=== PATIENT | male | born 1995 | race Caucasian/White ===

== ENCOUNTER 2020-12-25 23:46 | Emergency (ER) | payer OTHER, SELFPAY ==
--- NOTE | 2020-12-25 23:49 | ECG_ITS ---
Measurements Intervals [place] Rate: 87 P: 10 NH: 158 QRS: 32 QRSD: 117 T: 39 QT: 339 QTc: 409 Interpretive Statements SINUS RHYTHM BASELINE ARTIFACT- I, II, III, AVR, AVL, AVF, V1 NORMAL ECG Electronically Signed On 12-26-2020 6:46:03 CDT by Juan Valadez D.O.
[2020-12-25 23:53] VITALS: BP 148/90; PULSE 91; RESP 21; TEMP 37.1; O2SAT 97
[2020-12-26 00:25] LABS: Basophils Absolute Auto 0.1 K/mm3 (0.0-0.1); Basophils Percent Auto 0.7 % (0.2-1.2); Eosinophils Absolute Auto 0.3 K/mm3 (0-0.3); Eosinophils Percent Auto 3.3 % (0-4.4); Hematocrit 47.3 % (42.0-52.0); Hemoglobin 16.9 g/dL (14.0-18.0); Immature Granulocyte Absolute 0.05 K/mm3 (0.00-0.031); Immature Granulocyte Percent A 0.5 % (0-0.5); Lymphocytes Absolute Auto 1.38 K/mm3 (0.9-3.2); Lymphocytes Percent Auto 13.2 % (18.3-44.2); Mean Corpuscular HGB Conc 35.7 g/dl (32-36); Mean Corpuscular Hemoglobin 34.3 pg (26-34); Mean Corpuscular Volume 96.1 fl (80-100); Mean Platelet Volume 9.6 fl (7.4-10.4); Monocytes Absolute Auto 0.8 K/mm3 (0.1-0.6); Neutrophils Absolute Auto 7.8 K/mm3 (1.3-6.7); Neutrophils Percent Auto 74.3 % (45.5-73.1); Platelet Count Result 217 k/mm3 (150-375); Red Blood Count 4.92 M/mm3 (4.6-6.20); Red Cell Distribution Width 12.8 % (11.5-14.5); White Blood Count 10.4 K/mm3 (4.5-10.0)
[2020-12-26 00:39] LABS: Alanine Aminotransferase 77 U/L (4-50); Albumin Level 4.7 g/dL (3.5-5.1); Alkaline Phosphatase 76 U/L (38-126); Anion Gap 6 mmol/L (8-16); Aspartate Amino Transferase 69 U/L (17-59); Bilirubin,Total 0.5 mg/dL (0.2-1.3); Blood Urea Nitrogen 13 mg/dL (9-20); Calcium 9.7 mg/dL (8.4-10.2); Carbon Dioxide 29 mmol/L (22-30); Chloride 106 mmol/L (98-107); Estimated CRCL calculation 160 ml/min; Estimated Glomerular Filt Rate > 60; Glucose 109 mg/dL (65-110); Potassium 3.8 mmol/L (3.4-5.0); Sodium 141 mmol/L (137-145)
--- NOTE | 2020-12-26 01:06 | ED.GENADULT ---
HPI - General Adult General Chief complaint: Neuro Symptoms/Deficit Stated complaint: numbness in head x2 weeks, forearm Time Seen by Provider: 12/26/20 01:05 Source: patient Mode of arrival: ambulatory Limitations: no limitations History of Present Illness HPI narrative: Patient is a 25-year-old male complaining of left facial numbness and tingling x2 weeks and left upper extremity numbness x1 week and now states that both of his upper extremities are tingling. Patient states that the above symptoms only happens before he goes to work. Patient has a history of anxiety and claims that he has been a lot of stress the past 2 weeks at work. Patient states that he takes lorazepam for anxiety and the past 2 weeks has been taking it right before going to work. Patient denies any headache or dizziness, speech or visual disturbance, focal weakness, unsteady gait, chest pain, shortness of breath, nausea, vomiting, fever or chills. Patient states that he has an appointment to see a new doctor next week for his anxiety. Related Data Allergies Allergy/AdvReac Type Severity Reaction Status Date / Time No Known Allergies Allergy Verified 08/14/20 14:16 Review of Systems Review of Systems: All systems reviewed & are unremarkable except as noted in HPI and below Constitutional: Constitutional: Denies body ache(s), Denies chills, Denies excessive sweating, Denies fatigue, Denies fever(s), Denies headache(s), Denies lethargy, Denies malaise, Denies weakness and Denies weight loss Eyes: Eyes: Denies blurry vision, Denies change in vision and Denies loss of vision ENT: Denies dizziness, Denies ear discharge, Denies headache(s), Denies lip swelling, Denies epistaxis, Denies nasal congestion, Denies neck pain, Denies throat swelling and Denies tongue swelling Cardiovascular: Cardiovascular: Denies chest pain, Denies chest pain at rest, Denies chest pain with activity, Denies diaphoresis, Denies rapid heart rate, Denies edema, Denies irregular heart rhythm, Denies lightheadedness, Denies palpitations, Denies dyspnea and Denies dyspnea on exertion Respiratory: Respiratory: Denies chest congestion, Denies cough, Denies hemoptysis, Denies dyspnea and Denies dyspnea on exertion Gastrointestinal: Gastrointestinal: Denies abdominal pain, Denies melena, Denies hematochezia, Denies diarrhea, Denies nausea, Denies vomiting and Denies hematemesis Musculoskeletal: Musculoskeletal: Denies abnormal gait, Denies deformity, Denies joint swelling, Denies limited range of motion and Denies neck pain Neurologic: Denies Abnormal speech present, Denies abnormal gait, Denies confusion, Denies dizziness, Denies headache(s), Denies focal weakness, Denies loss of vision, Denies Other visual disturbances and Denies weakness Psychiatric: Psychiatric: Reports anxiety, Denies confusion, Denies depression, Denies auditory hallucinations, Denies homicidal ideation and Denies suicidal ideation Endocrine: Endocrine: Denies cold intolerance, Denies excessive sweating, Denies fatigue, Denies heat intolerance and Denies palpitations Hematologic/Lymphatic: Hematologic/Lymphatic: Denies easy bleeding and Denies easy bruising Allergic/Immunologic: Allergic/Immunologic: Denies lip swelling, Denies throat swelling and Denies tongue swelling PMFSH Social History Social History Smoking status: Current every day smoker Tobacco type: cigarettes Alcohol intake: current Drinks per week: 3 Alcohol use details: patient drinks [employer] Substance use: never Substance use type: does not use Additional occupation/education comments: [employer] Gender identity (if verbalized by the patient): Male Comments Past medical history: Anxiety Family history: Negative for CVA, negative for aneurysm Exam Const: General: cooperative, healthy appearing, comfortable, no acute distress, well developed, alert and awake; No confusio
[2020-12-26 02:16] VITALS: BP 136/85; PULSE 88; RESP 18; O2SAT 96
== END 2020-12-26 03:10 | disposition home or self-care (01) ==
PROVIDERS: Emergency Provider Emergency Medicine
DX: F41.9 Anxiety disorder, unspecified (principal); R20.2 Paresthesia of skin; F17.210 Nicotine dependence, cigarettes, uncomplicated
CPT/HCPCS: 36415; 80053; 85025; 93005; 99283

== ENCOUNTER 2025-01-09 17:35 | Inpatient (IN) | payer OTHER, SELFPAY ==
--- OUTSIDE RECORDS SUMMARY | 2003-08-03 05:45 | XMS_ITS | Continuity of Care Document ---
Author Organization [facility] Address [address] [place] [address] Phone Care Team Providers Care Taper And Floater Name Role Phone Nayely Hael Unavailable Unavailable Advance Directives Directive Yes / No Effective Date File Name No Information Encounters Encounter Description Practice Location Reason(s) For Visit Diagnoses Date Provider Providers Copied on Encounter [facility], [id number] [place] [address] [address], [place], [place], [id number], [place] tel:[phone] SEC [facility] No Information 9-200 4 Alexia Adler. [address] [facility] , [address], [place], [address], [place]. tel:[phone] Family History Family Member Type Diagnosis Age At Onset No Information Payers Payer name Insurance type Covered libertarian ID Authoriza tion(s) Medicaid [facility] [id number] Social History Type Description Quantity Date Captured Comments Sex Male Smoking Status No Information Chief Complaint And Reason For Visit No Information Reason For Referral Reason For Referral No Information History Of Present Illness Encounter Date Complaint History Of Prese nt Illness No Information Functional Status Date Functional Assessmen t No Information Instructions Date Instruction Additional Infor mation No Information Assessments Type Assessment Date No Information Patient Care Teams Name Effective Dates (start - stop) Status Members No Information
[2025-01-09] VITALS (12 sets, daily range): BP systolic 128–150; BP diastolic 84–118; PULSE 111–124; RESP 18–27; TEMP 36.3–37.1; O2SAT 88–97
--- NOTE | ~2025-01-09 | XR_ITS ---
EXAMINATION: XR abdomen gastric tube insert, 01/12/2025 15:33 CDT HISTORY: NG placement COMPARISON: No comparisons available. Technique: 3 view. Findings: There are dilated loops of small bowel the largest measuring 4 cm. No free air. No abnormal calcifications No acute osseous abnormality. Nasogastric tube terminates in the mid stomach. Impression: 1. Nasogastric tube in appropriate location Reviewed, dictated and finalized at location P. Impression: 1. Nasogastric tube in appropriate location
--- NOTE | ~2025-01-09 | CT_ITS ---
EXAMINATION: CTA chest PE protocol DATE: 01/10/2025 02:14 INDICATION: Abdominal pain. Bowel obstruction. TECHNIQUE: Computed tomography angiography (CTA) of the chest was performed with 100 mL Omnipaque-350 intravenous contrast timed to evaluate the pulmonary arteries. Coronal maximum intensity projection 3D-reconstructions were created by the technologist. Automated exposure control and iterative reconstruction technique were employed. The dose-length product was 1142.85 mGy-cm. COMPARISON: None. FINDINGS: The lungs demonstrate mild atelectasis. There is a 3 mm nodule in right upper lobe, likely benign. There is a 3 mm nodule in right middle lobe, likely benign. There is a 4 mm nodule at right major fissure, likely benign. No pleural effusion. The heart size is normal. No pericardial effusion. There is no pulmonary embolus. There are gallstones in the gallbladder, which is normal in size. The colon is distended. There is mild thoracic spondylosis. There is mild chronic anterior wedging of multiple lower thoracic vertebral bodies. IMPRESSION: 1. No pulmonary embolus. Sensitivity is mildly decreased by motion artifact. 2. Distended colon, consistent with distal obstruction. Reviewed, dictated and finalized at location E.
--- NOTE | ~2025-01-09 | CT_ITS ---
EXAMINATION: CT abdomen pelvis w con DATE: 01/12/2025 13:15 INDICATION: Bowel perforation. Abdominal pain. TECHNIQUE: Computed tomography (CT) of the abdomen and pelvis was performed with 100 mL Omnipaque-350 intravenous contrast. Automated exposure control and iterative reconstruction technique were employed. The dose-length product was 1596.38 mGy-cm. COMPARISON: None FINDINGS: Discoid and dependent atelectasis in bilateral lower lobes. Additional discoid atelectasis in the lingula. Heart size is normal. No pericardial or pleural effusion. Small sliding-type hiatal hernia. Diffuse hepatic steatosis. Gallbladder is decompressed around several gallstones. Spleen, pancreas, bila teral adrenal glands and kidneys are normal. There is a segment of prominent wall thickening and surrounding inflammatory stranding along the mid descending colon which could be due to diverticulitis, focal colitis or malignancy. Again seen are couple very small loculated gas and fluid collections within a region of phlegmonous change along side the affected colon which is consistent with secondary bowel perforation and abscess formation. There appears to be a sinus tract extending to communicate with a larger 5 x 2 x 2 cm gas and fluid containing abscess along the anterolateral margin of the left psoas muscle. The more distal colon is relatively decompressed with fluid filling the more proximal colon as well as multiple mildly dilated loops of mid to distal small bowel which suggests some degree of stricture/obstruction occurring at the affected descending colon. Bladder is normal. Aside from the immediate vicinity of the affected descending colon there is no other free intraperitoneal gas or f luid. No pathologically enlarged abdominal or pelvic lymphadenopathy. Mild to moderate lower thoracic and mild lumbar spondylosis. IMPRESSION: 1. Stable appearance of phlegmonous change in a few small abscesses including a 5 x 2 x 2 cm left psoas abscess such with a thickened segment of descending colon which is concerning for bowel perforation the setting of diverticulitis, focal colitis or potentially malignancy. 2. Fluid filling the more proximal colon as well as multiple dilated loops of mid to distal small bowel suggesting some degree of obstruction related stricture at the site of the affected descending colon. Consider nasogastric tube decompression. 3. Diffuse hepatic steatosis. Reviewed, dictated and finalized at location A. IMPRESSION: 1. Stable appearance of phlegmonous change in a few small abscesses including a 5 x 2 x 2 cm left psoas abscess such with a thickened segment of descending co nelly which is concerning for bowel perforation the setting of diverticulitis, fo luis colitis or potentially malignancy. 2. Fluid filling the more proximal colon as well as multiple dilated loops of m id to distal small bowel suggesting some degree of obstruction related strictur e at the site of the affected descending colon. Consider nasogastric tube decom pression. 3. Diffuse hepatic steatosis.
--- NOTE | ~2025-01-09 | CT_ITS ---
EXAMINATION: CT guide absc cath placement DATE: 01/13/2025 15:06 INDICATION: Left psoas abscess TECHNIQUE: The procedure including the risks and benefits was discussed with the patient. Risks discussed included bleeding and infection. The patient understood the risks and benefits and agreed to proceed. The patient was confirmed to be receiving appropriate antibiotic coverage. The skin overlying the lateral left lower quadrant abdominal wall was prepped and draped in usual sterile fashion. Anesthetic was administered with 1% lidocaine subcutaneously. Utilizing CT guidance an 18-gauge trochar needle was inserted left psoas muscle abscess. The inner stylette was removed and a J-wire advanced into the fluid collection with position confirmed by CT. Needle was removed and utilizing Seldinger technique the tract was serially dilated over the wire to 9 Fr. A 2.5 Fr pigtail catheter was then placed and the loop formed and locked with position confirmed by CT. The catheter was stitched to the skin with suture. Antibiotic ointment and a sterile dressing were applied. 15 mL purulent appearing fluid was aspirated and sent to the lab for Gram stain and cultures. The dose-length product was 1078.21 mGy-cm. FINDINGS: CT images demonstrate the catheter within the left psoas muscle gas and fluid collection. 15 mL purulent appearing opaque pinkish-guan fluid was aspirated for testing. IMPRESSION: 1. Successful CT-guided left psoas muscle abscess drainage catheter placement. 2. 15 mL fluid was sent for aerobic and anaerobic cultures. 3. The catheter will be managed by Dr. Mayfield. Reviewed, dictated and finalized at location A.
--- NOTE | ~2025-01-09 | CT_ITS ---
EXAMINATION: CT abdomen pelvis w con DATE: 01/10/2025 00:02 INDICATION: Abdominal pain. TECHNIQUE: Computed tomography (CT) of the abdomen and pelvis was performed with 100 mL Omnipaque 350 intravenous contrast. Automated exposure control and iterative reconstruction technique were employed. The dose-length product was 1860.78 mGy-cm. COMPARISON: None. FINDINGS: The visualized portions of the lung bases are clear without pneumonia or pleural effusion. The heart size is normal. No pericardial effusion. There is diffuse hepatic steatosis. There are gallstones in the gallbladder, which is normal in size. The spleen, pancreas, adrenal glands, and kidneys are normal. There is a mass of the descending colon with surrounding fat stranding and foci of extraluminal gas including a 5.1 x 2.0 x 2.1 cm abscess involving the adjacent left psoas muscle. The colon is distended proximal to the mass. The small bowel is distended. The appendix is fluid-filled with diameter of 12 mm. No surrounding fat stranding to suggest appendicitis. There is mild mesenteric lymphadenopathy with the largest node measuring 12 x 16 mm. There is prominent fat in the inguinal canals that may be hernias. There is no significant ascites. There are screws in the femoral heads bilaterally. There is moderate thoracic spondylosis and mild lumbar spondylosis. There is mild chronic anterior wedging of multiple thoracic vertebral bodies. IMPRESSION: 1. Mass of the descending colon, which may be malignancy or diverticulitis with microperforation and abscess involving the adjacent left psoas muscle. 2. Bowel obstruction from the descending colon mass. 3. Mild mesenteric lymphadenopathy which may be reactive or metastatic disease. Reviewed, dictated and finalized at location E.
--- NOTE | 2025-01-09 18:27 | ED.ABDPAIN ---
HPI - Abdominal Pain General Chief Complaint: Abdominal Pain <Robinson Macias APRN - Last Filed: 01/09/25 18:28> Stated Complaint: abd pain worsening over months <Robinson Macias APRN - Last Filed: 01/09/25 18:28> Time Seen by Provider: 01/09/25 23:21 <Robinson Macias APRN - Last Filed: 01/09/25 18:28> Focused HPI: 29-year-old male history of GERD, anxiety, depression, heavy EtOH abuse presents ER complaining of upper abdominal pain has been present intermittently for 3 months. Denies nausea, vomiting or diarrhea. Denies fevers. States last drink was yesterday. GENERAL: Well-appearing, well-nourished, and in no acute distress. HEAD: Normocephalic, atraumatic. CHEST: Clear to auscultation. No respiratory distress. HEART: Regular rate and rhythm. NEURO: Alert and oriented x3. Patient screened in triage and initial orders placed. Additional care and disposition to be based upon diagnostic testing and treatment. <Robinson Macias APRN - Last Filed: 01/09/25 18:28> History of Present Illness HPI narrative: Patient is a 29-year-old gentleman presents emergency department chief complaint of abdominal pain patient reports that for the last several months he has been having abdominal pain diagnosed with GERD and started on omeprazole patient states he does drink approximately 1/5 of alcohol per day and reports that he has had some nausea and reports that he has had some diarrhea as well the patient states that today decided to come the emergency department has not had a CT scan that was supposed to be done as an outpatient <Pierre Samson MD - Last Filed: 01/10/25 01:13> Related Data Allergies/Adverse Reactions: Allergies Allergy/AdvReac Type Severity Reaction Status Date / Time No Known Allergies Allergy Verified 12/16/24 07:09 <Robinson Macias APRN - Last Filed: 01/09/25 18:28> Review of Systems Review of Systems: A 10 system review of systems was completed on the patient and is negative except for what is stated in the HPI. Nursing and ancillary documentation was reviewed. <Pierre Samson MD - Last Filed: 01/10/25 01:13> PMFSH Past Medical History Medical History: Medical History Morbid obesity Elevated liver enzymes Anxiety with depression <Robinson Macias APRN - Last Filed: 01/09/25 18:28> Surgical History Surgical History: Surgical History History of hip surgery <Robinson Macias APRN - Last Filed: 01/09/25 18:28> Family History Family History: Family History Father No problems noted. Mother No problems noted. Sibling No problems noted. <Robinson Macias APRN - Last Filed: 01/09/25 18:28> Social History Social History: Social History Smoking status: Current every day smoker Tobacco type: cigarettes Second hand tobacco smoke exposure: Yes Alcohol intake: current Drinks per week: 3 Alcohol use details: patient drinks whiskey Substance use: never Substance use type: does not use Do You Feel Safe in your Home?: Yes Lack of Transportation: No Lack of Food: Never True Current Housing: I Have Housing Concerned About Future Housing: No Difficulty Paying Gas/Electric Bills: No Difficulty Paying for Meds: No Currently Unemployed: No Education: High School Diploma/GED Difficulty w/ Childcare or Family Care: No Living arrangements: with family Occupation/Education: occupation Additional occupation/education comments: [employer] Gender identity (if verbalized by the patient): Male <Robinson Macias APRN - Last Filed: 01/09/25 18:28> Exam Narrative: GENERAL: Well-appearing, well-nourished, and in no acute distress. HEAD: Normocephalic, atraumatic. EYES: PERRLA and EOMI. ENT: Nares clear, no rhinorrhea or epistaxis. Mucous membranes moist. NECK: Supple. CHEST: Clear to auscultation. No respiratory distress. HEART: Regular rate and rhythm. No murmur heard. Normal peripheral pulses. ABDOMEN: Soft, diffusely tender to palpation, nondistended, normal active bowel sounds. EXTREMITIES: Normal range of motion. No edema. SKIN: Warm, dry, no rash. NEURO: No focal deficits. Alert and oriented x3. PSYCH: Normal mood and affect. <Pierre Samson MD - Last Filed: 01/10/25 01:13> Course Vital Signs Vital signs: Vital Signs Temperature 36.3 C L 01/09/25 18:22 Pulse Rate 124 H 01/09/25 18:22 Respiratory Rate 18 01/09/25 18:22 Blood Pressure 143/118 H 01/09/25 18:22 Pulse Oximetry 97 01/09/25 18:22 Oxygen Delivery Room Air 01/09/25 18:22 Temperature 37.1 C 01/09/25 23:14 Pulse Rate 116 H 01/09/25 23:14 Respiratory Rate 18 01/09/25 23:14 Blood Pressure 150/96 H 01/09/25 23:14 Pulse Oximetry 95 01/09/25 23:14 Oxygen Delivery Room Air 01/09/25 18:22 <Robinson Macias, REGIONAL SALES REPRESENTATIVE - Last Filed: 01/09/25 18:28> Vital Signs Temperature 36.3 C L 01/09/25 18:22 Pulse Rate 124 H 01/09/25 18:22 Respiratory Rate 18 01/09/25 18:22 Blood Pressure 143/118 H 01/09/25 18:22 Pulse Oximetry 97 01/09/25 18:22 Oxygen Delivery Room Air 01/09/25 18:22 Temperature 37.1 C 01/09/25 23:14 Pulse Rate 116 H 01/09/25 23:14 Respiratory Rate 18 01/09/25 23:14 Blood Pressure 150/96 H 01/09/25 23:14 Pulse Oximetry 95 01/09/25 23:14 Oxygen Delivery Room Air 01/09/25 18:22 <Pierre Samson MD - Last Filed: 01/10/25 01:13> MDM - Abdominal Pain MDM Narrative Medical decision making narrative: Differential diagnosis includes small-bowel obstruction, large-bowel obstruction, intra-abdominal mass, abscess, Laboratory studies were obtained showed a white count of 14 0 electrolytes showed a potassium of 2.8 liver enzymes within normal limits lipase was 22 CT scan of the abdomen pelvis showed large bowel obstruction due to a left colonic probable neoplastic mass left colonic perforation with retroperitoneal abscess 5.5 cm adjacent to the psoas muscle Patient was started on Zosyn The case was discussed with surgery on-call who recommended admission to the hospitalist service and they will consult on the patient <Pierre Samson MD - Last Filed: 01/10/25 01:13> Lab Data Result diagrams: 01/09/25 23:12 01/09/25 23:12 <Robinson Macias APRN - Last Filed: 01/09/25 18:28> Labs: Lab Results 01/09/25 01/10/25 Range/Units 23:12 00:59 WBC 14.0 H (4.5-10.0) K/mm3 RBC 4.71 (4.6-6.20) M/mm3 Hgb 13.6 L D (14.0-18.0) g/dL Hct 40.4 L (42.0-52.0) % MCV 85.8 (80-100) fl MCH 28.9 (26-34) pg MCHC 33.7 (32-36) g/dl RDW 14.7 H (11.5-14.5) % Plt Count 449 H D (150-375) k/mm3 MPV 7.9 (7.4-10.4) fl Immature Gran % (Auto) 0.8 H (0-0.5) % Neut % (Auto) 73.8 H (45.5-73.1) % Lymph % (Auto) 13.3 L (18.3-44.2) % [place] % (Auto) 11.0 H (2.6-8.5) % Eos % (Auto) 0.7 (0-4.4) % Baso % (Auto) 0.4 (0.2-1.2) % Lymph # (Auto) 1.87 (0.9-3.2) K/mm3 [place] # (Auto) 1.5 H (0.1-0.6) K/mm3 Eos # (Auto) 0.1 (0-0.3) K/mm3 Baso # (Auto) 0.1 (0.0-0.1) K/mm3 Abs Immat Gran (auto) 0.11 H (0.00-0.031) K/mm3 Absolute Neuts (auto) 10.3 H (1.3-6.7) K/mm3 Absolute Nucleated RBC 0.000 (0.0-0.012) K/mm3 Nucleated RBC % 0.0 (0.0-0.2) % PT 14.5 (11.1-14.7) Seconds INR 1.1 APTT 31.0 (22.3-36.8) Seconds Sodium 133 L (137-145) mmol/L Potassium 2.8 L* (3.4-5.0) mmol/L Chloride 90 L (98-107) mmol/L Carbon Dioxide 33 H (22-30) mmol/L Anion Gap 10 (4-12) mmol/L BUN 5 L D (9-20) mg/dL Creatinine 0.55 L (0.7-1.3) mg/dL Estim Creat Clear Calc 216 ml/min Estimated GFR > 60 (59 - ) Glucose 117 H (65-110) mg/dL Lactic Acid 1.5 (0.7-2.0) mmol/L Calcium 8.6 (8.4-10.2) mg/dL Total Bilirubin 1.1 (0.2-1.3) mg/dL AST 25 (17-59) U/L ALT 17 (6-50) U/L Alkaline Phosphatase 114 (38-126) U/L Total Protein 7.0 (6.3-8.2) g/dL Albumin 3.4 L (3.5-5.1) g/dL Cholesterol 121 (0-200) mg/dL Lipase 22 L (23-300) U/L Urine Color Pending Urine Appearance Pending Urine pH Pending Ur Specific [place] Pending Urine Protein Pending Urine Glucose (UA) Pending Urine Ketones Pending Ur Blood (Man) Pending Urine Nitrate Pending Urine Bilirubin Pending Urine Urobilinogen Pending Leukocyte Esterase Rfl Pending <Robinson Macias, REGIONAL SALES REPRESENTATIVE - Last Filed: 01/09/25 18:28> Lab Results 01/09/25 01/10/25 Range/Units 23:12 00:59 WBC 14.0 H (4.5-10.0) K/mm3 RBC 4.71 (4.6-6.20) M/mm3 Hgb 13.6 L D (14.0-18.0) g/dL Hct 40.4 L (42.0-52.0) % MCV 85.8 (80-100) fl MCH 28.9 (26-34) pg MCHC 33.7 (32-36) g/dl RDW 14.7 H (11.5-14.5) % Plt Count 449 H D (150-375) k/mm3 MPV 7.9 (7.4-10.4) fl Immature Gran % (Auto) 0.8 H (0-0.5) % Neut % (Auto) 73.8 H (45.5-73.1) % Lymph % (Auto) 13.3 L (18.3-44.2) % [place] % (Auto) 11.0 H (2.6-8.5) % Eos % (Auto) 0.7 (0-4.4) % Baso % (Auto) 0.4 (0.2-1.2) % Lymph # (Auto) 1.87 (0.9-3.2) K/mm3 [place] # (Auto) 1.5 H (0.1-0.6) K/mm3 Eos # (Auto) 0.1 (0-0.3) K/mm3 Baso # (Auto) 0.1 (0.0-0.1) K/mm3 Abs Immat Gran (auto) 0.11 H (0.00-0.031) K/mm3 Absolute Neuts (auto) 10.3 H (1.3-6.7) K/mm3 Absolute Nucleated RBC 0.000 (0.0-0.012) K/mm3 Nucleated RBC % 0.0 (0.0-0.2) % PT 14.5 (11.1-14.7) Seconds INR 1.1 APTT 31.0 (22.3-36.8) Seconds Sodium 133 L (137-145) mmol/L Potassium 2.8 L* (3.4-5.0) mmol/L Chloride 90 L (98-107) mmol/L Carbon Dioxide 33 H (22-30) mmol/L Anion Gap 10 (4-12) mmol/L BUN 5 L D (9-20) mg/dL Creatinine 0.55 L (0.7-1.3) mg/dL Estim Creat Clear Calc 216 ml/min Estimated GFR > 60 (59 - ) Glucose 117 H (65-110) mg/dL Lactic Acid 1.5 (0.7-2.0) mmol/L Calcium 8.6 (8.4-10.2) mg/dL Total Bilirubin 1.1 (0.2-1.3) mg/dL AST 25 (17-59) U/L ALT 17 (6-50) U/L Alkaline Phosphatase 114 (38-126) U/L Total Protein 7.0 (6.3-8.2) g/dL Albumin 3.4 L (3.5-5.1) g/dL Cholesterol 121 (0-200) mg/dL Lipase 22 L (23-300) U/L Urine Color Pending Urine Appearance Pending Urine pH Pending Ur Specific [place] Pending Urine Protein Pending Urine Glucose (UA) Pending Urine Ketones Pending Ur Blood (Man) Pending Urine Nitrate Pending Urine Bilirubin Pending Urine Urobilinogen Pending Leukocyte Esterase Rfl Pending <Pierre Samson MD - Last Filed: 01/10/25 01:13> Discharge Plan Discharge Clinical Impression: Bowel obstruction, Abdominal abscess, Abdominal pain, Acute hypokalemia <Robinson Macias APRN - Last Filed: 01/09/25 18:28> Patient Disposition: Still a Patient <Robinson Macias APRN - Last Filed: 01/09/25 18:28> Condition: Stable <Robinson Macias APRN - Last Filed: 01/09/25 18:28> Instructions: Antibiotic Form <Robinson Macias APRN - Last Filed: 01/09/25 18:28> Patient Language: Filipino <Robinson Macias APRN - Last Filed: 01/09/25 18:28> Prescriptions: No Action omeprazole 40 mg capsule,delayed release(DR/EC) 40 mg PO DAILY Qty: 90 0RF bupropion HCl 300 mg tablet extended release 24 hr 300 mg PO QAM Qty: 30 0RF quetiapine 50 mg tablet 50 mg PO QHS Qty: 30 0RF propranolol 60 mg capsule,extended release 24 hr 60 mg PO DAILY Qty: 30 0RF lorazepam 1 mg tablet 1 mg PO DAILY PRN (Reason: anxiety) Qty: 30 0RF <Robinson Macias APRN - Last Filed: 01/09/25 18:28> Follow-up/Referrals: Katherine Anders APRN [Primary Care Provider, [facility]] <Robinson Macias APRN - Last Filed: 01/09/25 18:28> Time of Disposition: 01:04 <Robinson Macias APRN - Last Filed: 01/09/25 18:28> 01:04 <Pierre Samson MD - Last Filed: 01/10/25 01:13>
[2025-01-09 23:18] LABS: Hematocrit 40.4 % (42.0-52.0); Hemoglobin 13.6 g/dL (14.0-18.0); Immature Granulocyte Percent A 0.8 % (0-0.5); Lymphocytes Absolute Auto 1.87 K/mm3 (0.9-3.2); Mean Corpuscular HGB Conc 33.7 g/dl (32-36); Mean Corpuscular Hemoglobin 28.9 pg (26-34); Mean Corpuscular Volume 85.8 fl (80-100); Nucleated Red Blood Cells Absolute Auto 0.000 K/mm3 (0.0-0.012); Nucleated Red Blood Cells Perc 0.0 % (0.0-0.2); Platelet Count Result 449 k/mm3 (150-375); Red Blood Count 4.71 M/mm3 (4.6-6.20); White Blood Count 14.0 K/mm3 (4.5-10.0)
[2025-01-09] MEDS: SODIUM CHLORIDE 0.9% IV 1,000 ML 999 ML IV CONT (23:21)
[2025-01-09 23:30] LABS: INR 1.1; Prothrombin Time 14.5 Seconds (11.1-14.7)
[2025-01-09 23:31] LABS: Cholesterol 121 mg/dL (0-200); Partial Thromboplastin Time 31.0 Seconds (22.3-36.8)
[2025-01-09 23:34] LABS: Alanine Aminotransferase 17 U/L (6-50); Albumin Level 3.4 g/dL (3.5-5.1); Alkaline Phosphatase 114 U/L (38-126); Anion Gap 10 mmol/L (4-12); Aspartate Amino Transferase 25 U/L (17-59); Bilirubin,Total 1.1 mg/dL (0.2-1.3); Blood Urea Nitrogen 5 mg/dL (9-20); Calcium 8.6 mg/dL (8.4-10.2); Carbon Dioxide 33 mmol/L (22-30); Chloride 90 mmol/L (98-107); Estimated CRCL calculation 216 ml/min; Estimated Glomerular Filt Rate > 60; Glucose 117 mg/dL (65-110); Lipase 22 U/L (23-300); Potassium 2.8 mmol/L (3.4-5.0); Sodium 133 mmol/L (137-145); Total Protein 7.0 g/dL (6.3-8.2)
[2025-01-10] VITALS (45 sets, daily range): BP systolic 120–172; BP diastolic 75–144; PULSE 96–113; RESP 20–25; TEMP 36.7–36.8; O2SAT 89–100
[2025-01-10] MEDS: KCL 20 MEQ/SW 100 ML 100 ML 50 MEQ IVPB (00:09)
[2025-01-10] MEDS: PIPERACILLIN/TAZOBACTAM SOD 3.375 GM in SODIUM CHLORIDE 0.9% IV 50 ML 100 ML IVPB ×5 (00:55→23:20)
--- NOTE | 2025-01-10 02:05 | P.HP_ITS ---
H&P: HPI History of Present Illness Date/Time: 01/10/25 02:05 Chief Complaint: Abdominal pain Narrative: 29-year-old male with history of class 3 obesity, anxiety and depression, tachycardia on propanolol, tobacco abuse, alcohol use disorder, presents to [facility] ER on 01/09/2025 with 90 days of abdominal symptoms. He has felt bloated, sometimes has nausea and vomiting. At some point he was prescrib ed omeprazole which has alleviated his symptoms. However, began to develop abdominal pain more on the right side. For a week now he has had stools which are soft and small. He has lost 19 lb in the past few months. His oral intake is less than usual due to the vomiting. ER evaluation reveals a pleasant and cooperative male who appears to be in mild distress, he reports dry mouth. WBC 25502, hemoglobin 13.6, platelets 449, sodium 133, potassium 2.8, serum creatinine 0.55, chloride 90, bicarb 33, lipase 22, CT scan abdomen pelvis demonstrating large bowel obstruction due to left colonic probable neoplastic mass and left colonic perforation with retroperitoneal abscess 5.5 cm adjacent to the psoas muscle. He was given potassium replacement, Zosyn, 1 L normal saline bolus. General surgery was contacted from the ER and they will see the patient in consultation and requested a medicine admission. Review of Systems Review of Systems: All systems reviewed & are unremarkable except as noted in HPI and below (Subjective) PMFSH Past Medical History Medical History Morbid obesity Elevated liver enzymes Anxiety with depression Surgical History Surgical History History of hip surgery Family History Family History Father No problems noted. Mother No problems noted. Sibling No problems noted. Social History Social History Smoking status: Current every day smoker Tobacco type: cigarettes Second hand tobacco smoke exposure: Yes Alcohol intake: current Drinks per week: 3 Alcohol use details: patient drinks whiskey Substance use: never Substance use type: does not use Do You Feel Safe in your Home?: Yes Lack of Transportation: No Lack of Food: Never True Current Housing: I Have Housing Concerned About Future Housing: No Difficulty Paying Gas/Electric Bills: No Difficulty Paying for Meds: No Currently Unemployed: No Education: High School Diploma/GED Difficulty w/ Childcare or Family Care: No Living arrangements: with family Occupation/Education: occupation Additional occupation/education comments: [employer] Gender identity (if verbalized by the patient): Male Meds Home Medications and Allergies Home Medications ?Medication ?Instructions ?Recorded ?Confirmed ?Type bupropion HCl 300 mg 24 hr tablet, 300 mg PO QAM #30 t abs 12/16/24 12/16/24 Rx extended release omeprazole 40 mg capsule,delayed 40 mg PO DAILY #90 ca ps 12/16/24 12/16/24 Rx release propranolol 60 mg capsule,24 60 mg PO DAILY #30 caps 0 12/16/24 12/16/24 Rx hr,extended release quetiapine 50 mg tablet 50 mg PO QHS #30 tabs 12/16/24 Rx lorazepam 1 mg tablet 1 mg PO DAILY PRN anxiety #3 0 tabs 12/21/24 Rx Allergies Allergy/AdvReac Type Severity Reaction Status Date / Time No Known Allergies Allergy Verified 12/16/24 07:09 Vital Signs Vital Signs - 24 hr 01/09/25 18:22 01/09/25 23:14 Temperature 97.3 F L 98.7 F Pulse Rate 124 H 116 H Respiratory Rate 18 18 Blood Pressure 143/118 H 150/96 H Pulse Oximetry 97 95 Oxygen Delivery Room Air Exam Const: General: comfortable and no acute distress Other: A&O x3 HENMT: Mouth: Yes dry mucous membranes Eyes: Pupils: Equal, round and reactive pupils present Neck: Neck: supple Resp: Effort & Inspection: normal respiratory effort Auscultation: clear to auscultation bilaterally Cardio: Rate: tachycardic Rhythm: regular rhythm Heart sounds: no gallops and no murmurs GI: Other: Mild distension, soft. Mild tenderness to palpation of the right upper quadrant and epigastrium. No guarding. Hypoactive bowel sounds Neuro: Motor exam (neuro): 5/5 motor strength present throughout Extrem: General: no edema H&P: Results Labs Labs: Short CBC 01/09/25 Range/Units 23:12 WBC 14.0 H (4.5-10.0) K/mm3 Hgb 13.6 L D (14.0-18.0) g/dL Hct 40.4 L (42.0-52.0) % Plt Count 449 H D (150-375) k/mm3 BMP 01/09/25 23:12 Sodium 133 L Potassium 2.8 L* Chloride 90 L Carbon Dioxide 33 H BUN 5 L D Creatinine 0.55 L Glucose 117 H Calcium 8.6 Liver Function 01/09/25 Range/Units 23:12 Total Bilirubin 1.1 (0.2-1.3) mg/dL AST 25 (17-59) U/L ALT 17 (6-50) U/L Alkaline Phosphatase 114 (38-126) U/L Albumin 3.4 L (3.5-5.1) g/dL Assessment and Plan Assessment and plan (1) Bowel obstruction: Code(s): K56.609 - Unspecified intestinal obstruction, unspecified as to partial versus complete obstruction Status: Acute (2) Abdominal abscess: Status: Acute Plan 29-year-old male with history of class 3 obesity, anxiety and depression, tachycardia on propanolol, tobacco abuse, alcohol use disorder, presents to [facility] ER on 01/09/2025 with 90 days of abdominal symptoms. He has felt bloated, sometimes has nausea and vomiting. At some point he was prescribed omeprazole which has alleviated his symptoms. However, began to develop abdominal pain more on the right side. For a week now he has had stools which are soft and small. He has lost 19 lb in the past few months. His oral intake is less than usual due to the vomiting. ER evaluation reveals a pleasant and cooperative male who appears to be in mild distress, he reports dry mouth. WBC 78611, hemoglobin 13.6, platelets 449, sodium 133, potassium 2.8, serum creatinine 0.55, chloride 90, bicarb 33, lipase 22, CT scan abdomen pelvis demonstrating large bowel obstruction due to left colonic probable neoplastic mass and left colonic perforation with retroperitoneal abscess 5.5 cm adjacent to the psoas muscle, final interpretation pending. He was given potassium replacement, Zosyn, 1 L normal saline bolus. General surgery was contacted from the ER, agreed to see the patient and requested medicine team to admit. ----- Potassium replaced with total KCl 60 mEq rider, check magnesium. Trend potassium and magnesium. D5 water at 50 cc/hour, normal saline at 125 cc/hour, Zofran p.r.n.. Protonix 40 mg IV q.a.m.. Continue Zosyn 3.375 g IV q.6 hours. NPO. Patient tells me he takes propanolol which was prescribed for tachycardia. Would benefit to resume beta-nguyen perioperatively unless he has hypotension or bradycardia. Patient smokes and drinks a 5th of hard liquor per day. Nicotine patch if needed. Monitor for alcohol withdrawal, he has never had withdrawal or seizures. Counseling provided for greater than 3 minutes. Hyponatremia: Sodium 133 on admission. Likely due to vomiting and hypovolemia. Continue fluids. Continue to trend. ----- Patient wishes to be full code. SCDs. NPO. Normal saline and D5 water Hospitalist MIPS Advance Care Plan I have confirmed that the patient's Advanced Care Plan is present, code status is documented, or surrogate decision maker is listed in patient medical record.: Yes Medication Reconciliation I have utilized all available resources to obtain, update and review the patients current medications (includes all prescriptions, OTC, herbals, cannabis, and nutritional supplements).: Yes
[2025-01-10 02:29] LABS: Add Urine Microscopic? YES; Appearance Urine Clear (Clear); Glucose Urine UA Negative (Negative); Leukocyte Esterase Ur Negative LEU/UL (Negative); Nitrate Urine Negative (Negative); Non Pathogenic Casts 0-2; Specific Grav Ur > 1.045 (1.001-1.035)
[2025-01-10] MEDS: POTASSIUM CHLORIDE INJ 40 MEQ in SODIUM CHLORIDE 0.9% IV 500 ML 130 MEQ IVPB ×2 (03:00→09:59)
[2025-01-10] MEDS: DEXTROSE 5% 1,000 ML 1,000 ML 50 ML IV CONT (03:01)
[2025-01-10 03:12] LABS: Magnesium 1.7 mg/dL (1.6-2.3)
[2025-01-10] MEDS: SODIUM CHLORIDE 0.9% IV 1,000 ML 125 ML IV CONT ×2 (04:19→21:49)
--- NOTE | 2025-01-10 04:43 | ADMGEN ---
This patient, Jose Galloway, was admitted to Medical Room 258-01. Patient/family oriented to hospital policies and general routines including ID bracelet, bed and alarms, visiting hours, pain management, procedures, bathroom and other care routines, personal items, smoking policy, room service/diet, and visiting hours. Information on how to activate the Rapid Response Team has been discussed. Patient/Family are encouraged to report perceived risks to care and to ask questions if they do not understand what they are told or what they should do.
[2025-01-10 05:16] LABS: Hematocrit 38.7 % (42.0-52.0); Hemoglobin 13.1 g/dL (14.0-18.0); Immature Granulocyte Percent A 0.8 % (0-0.5); Lymphocytes Absolute Auto 2.10 K/mm3 (0.9-3.2); Mean Corpuscular HGB Conc 33.9 g/dl (32-36); Mean Corpuscular Hemoglobin 29.5 pg (26-34); Mean Corpuscular Volume 87.2 fl (80-100); Nucleated Red Blood Cells Absolute Auto 0.000 K/mm3 (0.0-0.012); Nucleated Red Blood Cells Perc 0.0 % (0.0-0.2); Platelet Count Result 462 k/mm3 (150-375); Red Blood Count 4.44 M/mm3 (4.6-6.20); White Blood Count 11.8 K/mm3 (4.5-10.0)
[2025-01-10 05:56] LABS: Procalcitonin 0.1 ng/mL
[2025-01-10 06:06] LABS: Anion Gap 7 mmol/L (4-12); Blood Urea Nitrogen 6 mg/dL (9-20); Calcium 8.2 mg/dL (8.4-10.2); Carbon Dioxide 30 mmol/L (22-30); Chloride 95 mmol/L (98-107); Estimated CRCL calculation 231 ml/min; Estimated Glomerular Filt Rate > 60; Glucose 104 mg/dL (65-110); Magnesium 1.7 mg/dL (1.6-2.3); Potassium 2.8 mmol/L (3.4-5.0); Sodium 132 mmol/L (137-145)
[2025-01-10] MEDS: PANTOPRAZOLE SODIUM IV 40 MG VIAL IV PUSH (08:06)
--- NOTE | 2025-01-10 09:32 | PM.IMPN ---
Progress Note: A&P Assessment and Plan (1) Bowel obstruction: Code(s): K56.609 - Unspecified intestinal obstruction, unspecified as to partial versus complete obstruction Status: Acute Assessment and Plan: D5 water at 50 cc/hour, normal saline at 125 cc/hour, Zofran p.r.n.. Protonix 40 mg IV q.a.m.. Continue Zosyn 3.375 g IV q.[address]: CT scan abdomen pelvis demonstrating large bowel obstruction due to left colonic probable neoplastic mass and left colonic perforation with retroperitoneal abscess 5.5 cm adjacent to the psoas muscle, final interpretation pending. -Pending surgical plan, IVF, iv abx, and clear liquid diet until MN, NPO after. (2) Abdominal abscess: Status: Acute Assessment and Plan: See above (3) Tachycardia: Code(s): R00.0 - Tachycardia, unspecified Status: Acute Assessment and Plan: Patient tells me he takes propanolol which was prescribed for tachycardia. Would benefit to resume beta-nguyen perioperatively unless he has hypotension or bradycardia. 01/10: Continues to be tachycardic, but pulse decreasing, 103bpm. Continue propanolol. (4) Acute hypokalemia: Code(s): E87.6 - Hypokalemia Status: Acute Assessment and Plan: Potassium replaced with total KCl 60 mEq rider, check magnesium. Trend potassium and magnesium. 01/10: K continues to be decreased at 2.8, this was drawn in the middle of K administration this AM. Pt has been given 100meq total since admission, will check lab value in the AM. -Mag WDL, will continue to trend (5) Hyponatremia: Code(s): E87.1 - Hypo-osmolality and hyponatremia Status: Acute Assessment and Plan: Sodium 133 on admission. Likely due to vomiting and hypovolemia. Continue fluids. Continue to trend. 01/10: Continues to be low at 132. Continue fluids, will continue to re-check. (6) Tobacco dependence: Code(s): F17.200 - Nicotine dependence, unspecified, uncomplicated Status: Acute Assessment and Plan: Nicotine patch if needed. 01/10: -Pt smokes 1 ppd x >10 years -Nicotine patch ordered today based on ppd status = 14mg (7) Alcohol abuse: Code(s): F10.10 - Alcohol abuse, uncomplicated Status: Acute Assessment and Plan: Patient drinks a 5th of hard liquor per day. Monitor for alcohol withdrawal, he has never had withdrawal or seizures. Plan Patient wishes to be full code. SCDs. Clear liquids until MN, then NPO. Normal saline and D5 water Time Spent With Patient Time: 45 Subjective Date/time seen: 01/10/25 1124 Interval history: 29-year-old male with history of class 3 obesity, anxiety and depression, tachycardia on propanolol, tobacco abuse, alcohol use disorder, presents to [facility] ER on 01/09/2025 with 90 days of abdominal symptoms. He has felt bloated, sometimes has nausea and vomiting. At some point he was prescribed omeprazole which has alleviated his symptoms. However, began to develop abdominal pain more on the right side. For a week now he has had stools which are soft and small. He has lost 19 lb in the past few months. His oral intake is less than usual due to the vomiting. ER evaluation reveals a pleasant and cooperative male who appears to be in mild distress, he reports dry mouth. WBC 82898, hemoglobin 13.6, platelets 449, sodium 133, potassium 2.8, serum creatinine 0.55, chloride 90, bicarb 33, lipase 22, CT scan abdomen pelvis demonstrating large bowel obstruction due to left colonic probable neoplastic mass and left colonic perforation with retroperitoneal abscess 5.5 cm adjacent to the psoas muscle, final interpretation pending. He was given potassium replacement, Zosyn, 1 L normal saline bolus. General surgery was contacted from the ER, agreed to see the patient and requested medicine team to admit. 01/10: Pt lying on his L side due to R abd pain in the bed upon my arrival to his room. Denies N/V today. Is aware of plan for IV abx, bowel rest, IVF, and surgery consult. Will order nicotine patch for him and discussed with him potential s/e of etoh withdrawal. Review of Systems Review of Systems: All systems reviewed & are unremarkable except as noted in HPI and below (Subjective) Exam Const: General: no acute distress and uncomfortable Other: A&O x3 HENMT: Other: tacky mucous membranes Eyes: General: appearance normal, both eyes and all related structures Sclera: sclerae normal Pupils: Equal, round and reactive pupils present Neck: Neck: supple Carotids: no bruits Resp: Effort & Inspection: normal respiratory effort Auscultation: clear to auscultation bilaterally Cardio: Rate: tachycardic Rhythm: regular rhythm Heart sounds: no gallops and no murmurs GI: Other: Mild distension, soft. Moderate TTP of the RUQ and epigastrium. No guarding. Hypoactive bowel sounds Skin: General skin exam: normal color and no rashes or lesions noted Wounds: no wounds Neuro: Cranial nerves: Yes Equal, round and reactive pupils present Motor exam (neuro): Normal motor muscle tone present throughout Sensory Exam: normal sensation Extrem: General: no edema Psych: Mental Status: mental status grossly normal Affect: Sad affect present Objective Data Vital Signs Vital Signs: Vital Signs - 24 hr 01/09/25 18:22 01/09/25 22:49 01/09/25 22:51 Temperature 97.3 F L Pulse Rate 124 H 116 H 116 H Respiratory Rate 18 19 18 Blood Pressure 143/118 H 146/100 H Pulse Oximetry 97 97 97 Oxygen Delivery Room Air 01/09/25 23:00 01/09/25 23:01 01/09/25 23:14 Temperature 98.7 F Pulse Rate 115 H 114 H 116 H Respiratory Rate 27 H 23 H 18 Blood Pressure 150/96 H 150/96 H Pulse Oximetry 93 91 95 Oxygen Delivery 01/09/25 23:15 01/09/25 23:17 01/09/25 23:30 Temperature Pulse Rate 113 H 116 H 112 H Respiratory Rate 21 H 18 25 H Blood Pressure 131/104 H Pulse Oximetry 94 95 93 Oxygen Delivery 01/09/25 23:31 01/09/25 23:45 01/09/25 23:47 Temperature Pulse Rate 111 H 111 H 114 H Respiratory Rate 21 H 23 H 23 H Blood Pressure 145/104 H 128/84 Pulse Oximetry 88 L 94 96 Oxygen Delivery 01/10/25 00:08 01/10/25 00:10 01/10/25 00:15 Temperature Pulse Rate Respiratory Rate Blood Pressure 130/98 H Pulse Oximetry 100 96 94 Oxygen Delivery 01/10/25 00:16 01/10/25 00:30 01/10/25 00:31 Temperature Pulse Rate Respiratory Rate Blood Pressure 137/97 H 148/95 H Pulse Oximetry 92 96 90 Oxygen Delivery 01/10/25 00:45 01/10/25 00:46 01/10/25 01:00 Temperature Pulse Rate Respiratory Rate Blood Pressure 158/114 H Pulse Oximetry 94 90 93 Oxygen Delivery 01/10/25 01:02 01/10/25 01:15 01/10/25 01:17 Temperature Pulse Rate Respiratory Rate Blood Pressure 172/144 H 156/97 H Pulse Oximetry 96 95 94 Oxygen Delivery 01/10/25 01:30 01/10/25 01:32 01/10/25 01:45 Temperature Pulse Rate Respiratory Rate Blood Pressure 164/105 H Pulse Oximetry 92 94 91 Oxygen Delivery 01/10/25 01:46 01/10/25 02:00 01/10/25 02:19 Temperature Pulse Rate Respiratory Rate Blood Pressure 160/99 H Pulse Oximetry 89 L 95 95 Oxygen Delivery 01/10/25 02:21 01/10/25 02:36 01/10/25 02:45 Temperature Pulse Rate 107 H Respiratory Rate 21 H Blood Pressure 143/97 H Pulse Oximetry 97 95 91 Oxygen Delivery 01/10/25 02:46 01/10/25 02:47 01/10/25 03:00 Temperature Pulse Rate 107 H 105 H 109 H Respiratory Rate 25 H 20 24 H Blood Pressure 130/84 Pulse Oximetry 94 94 93 Oxygen Delivery 01/10/25 03:01 01/10/25 03:15 01/10/25 03:16 Temperature Pulse Rate 107 H 107 H 109 H Respiratory Rate 22 H 25 H 20 Blood Pressure 126/76 134/94 H Pulse Oximetry 94 92 93 Oxygen Delivery 01/10/25 03:30 01/10/25 03:31 01/10/25 03:45 Temperature Pulse Rate Respiratory Rate Blood Pressure 120/84 Pulse Oximetry 91 93 91 Oxygen Delivery 01/10/25 03:46 01/10/25 04:00 01/10/25 04:01 Temperature Pulse Rate Respiratory Rate Blood Pressure 124/75 130/88 Pulse Oximetry 93 90 94 Oxygen Delivery 01/10/25 04:15 01/10/25 04:16 01/10/25 04:56 Temperature 98.2 F Pulse Rate 112 H Respiratory Rate 20 Blood Pressure 144/88 H 145/95 H Pulse Oximetry 93 95 96 Oxygen Delivery 01/10/25 05:13 01/10/25 06:14 Temperature Pulse Rate 103 H Respiratory Rate Blood Pressure Pulse Oximetry Oxygen Delivery Room Air Intake/Output Intake/Output: Intake & Output 01/07/25 01/08/25 01/09/25 01/10/25 23:59 23:59 23:59 23:59 Intake Total 1810 Balance 1810 Meds/Results Medications: Active Medications Generic Name Dose Route Start Last Admin Trade Name Freq PRN Reason Stop Dose Admin Piperacillin Sod/Tazobactam 50 mls @ 100 mls/hr 01/10/25 06:00 01/10/25 08:11 Sod 3.375 gm/ Sodium Chloride IVPB 100 mls/hr Q6HR ANNE Administration Sodium Chloride 1,000 mls @ 125 mls/hr 01/10/25 01:10 01/10/25 04:19 Normal Saline Iv IV CONT 125 mls/hr .Q8H ANNE Administration Dextrose 1,000 mls @ 50 mls/hr 01/10/25 02:05 01/10/25 03:01 Dextrose 5% 1,000 Ml IV CONT 50 mls/hr .Q20H ANNE Administration Potassium Chloride 40 meq/ 520 mls @ 130 mls/hr 01/10/25 07:00 Sodium Chloride IVPB 01/10/25 10:59 ONCE ONE Morphine Sulfate 4 mg 01/10/25 01:10 Morphine Sulfate (*Crx) 4 Mg/Ml Inj IV PUSH Q2H PRN Pain Rated 7-10 Ondansetron HCl 4 mg 01/10/25 01:10 Ondansetron Inj 4 Mg/2 Ml Vial IV PUSH Q4H PRN Nausea Pantoprazole Sodium 40 mg 01/10/25 09:00 01/10/25 08:06 Pantoprazole Sodium Iv 40 Mg Vial IV PUSH 40 mg QAM ANNE Administration Propranolol HCl 60 mg 01/10/25 09:00 Propranolol Hcl Er 60 Mg Capsule PO DAILY [facility] Radiology Results: ITS Impressions Chest CTA 01/10/25 07:31 IMPRESSION: 1. No pulmonary embolus. Sensitivity is mildly decreased by motion artifact. 2. Distended colon, consistent with distal obstruction. Abdomen/Pelvis CT 01/10/25 08:01 IMPRESSION: 1. Mass of the descending colon, which may be malignancy or diverticulitis with microperforation and abscess involving the adjacent left psoas muscle. 2. Bowel obstruction from the descending colon mass. 3. Mild mesenteric lymphadenopathy which may be reactive or metastatic disease. Labs Labs: Laboratory Results - last 24 hr 01/09/25 01/10/25 01/10/25 23:12 00:59 04:58 WBC 14.0 H 11.8 H RBC 4.71 4.44 L Hgb 13.6 L D 13.1 L Hct 40.4 L 38.7 L MCV 85.8 87.2 MCH 28.9 29.5 MCHC 33.7 33.9 RDW 14.7 H 14.7 H Plt Count 449 H D 462 H MPV 7.9 8.2 Immature Gran % (Auto) 0.8 H 0.8 H Neut % (Auto) 73.8 H 69.6 Lymph % (Auto) 13.3 L 17.8 L [place] % (Auto) 11.0 H 10.3 H Eos % (Auto) 0.7 1.2 Baso % (Auto) 0.4 0.3 Lymph # (Auto) 1.87 2.10 [place] # (Auto) 1.5 H 1.2 H Eos # (Auto) 0.1 0.1 Baso # (Auto) 0.1 0.0 Abs Immat Gran (auto) 0.11 H 0.09 H Absolute Neuts (auto) 10.3 H 8.2 H Absolute Nucleated RBC 0.000 0.000 Nucleated RBC % 0.0 0.0 PT 14.5 INR 1.1 APTT 31.0 Sodium 133 L 132 L Potassium 2.8 L* 2.8 L* Chloride 90 L 95 L Carbon Dioxide 33 H 30 Anion Gap 10 7 BUN 5 L D 6 L Creatinine 0.55 L 0.51 L Estim Creat Clear Calc 216 231 Estimated GFR > 60 > 60 Glucose 117 H 104 Lactic Acid 1.5 Calcium 8.6 8.2 L Magnesium 1.7 1.7 Total Bilirubin 1.1 AST 25 ALT 17 Alkaline Phosphatase 114 Total Protein 7.0 Albumin 3.4 L Cholesterol 121 Lipase 22 L Procalcitonin 0.1 Urine Color Dark yellow Urine Appearance Clear Urine pH 6.0 Ur Specific [place] > 1.045 H Urine Protein Trace Urine Glucose (UA) Negative Urine Ketones Trace H Ur Blood (Man) Negative Urine Nitrate Negative Urine Bilirubin 2+ H Urine Urobilinogen >=8.0 H Leukocyte Esterase Rfl Negative Urine RBC 0-2 Urine WBC 0-5 Ur Squamous Epith Cells Occasional Urine Bacteria None seen Urine Casts 0-2 Quality VTE Prophylaxis VTE prophylaxis: mechanical ordered
--- NOTE | 2025-01-10 10:45 | P.CONGS_ITS ---
Assessment and Plan Assessment and plan (1) Large bowel obstruction: Code(s): K56.609 - Unspecified intestinal obstruction, unspecified as to partial versus complete obstruction Status: Acute Assessment and Plan: * Large bowel obstruction secondary to the descending colon mass on CT. He is having some bowel function and appears only partially obstructed. The descending colon wall thickening could be related to an infectious/inflammatory process such as diverticulitis or this could be a malignancy. He has never had a colonoscopy, but this would not be ideal at this time given the microperforation. Will review the CT scan with the Radiologist to determine if a Hypaque enema would be appropriate to further evaluate the stricture/obstruction. At this time, he does not appear to have an acute surgical abdomen, and we would recommend to continue broad-spectrum IV antibiotics, bowel rest, and IV fluids. No NG tube needed at this time, but if he develops nausea/vomiting, then we may need to reconsider NG decompression. Will continue to monitor closely with serial abdominal exams and labs. (2) Mass of colon: Code(s): K63.89 - Other specified diseases of intestine Status: Acute Assessment and Plan: * CT suggests mass at the descending colon causing an obstruction with a microperforation and adjacent left psoas abscess. See plan above. (3) Psoas abscess, left: Code(s): K68.12 - Psoas muscle abscess Status: Acute Assessment and Plan: * Left psoas abscess adjacent to the descending colon wall thickening and microperforation. Likely related to this process. Will review CT scan with the Radiologist to see if percutaneous drainage would be appropriate. Will keep NPO for now. (4) Alcohol abuse: Code(s): F10.10 - Alcohol abuse, uncomplicated Status: Acute Assessment and Plan: * Encouraged cessation (5) Tachycardia: Code(s): R00.0 - Tachycardia, unspecified Status: Acute Assessment and Plan: * Treated by his PCP with propanolol. They believe it is related to anxiety (6) Tobacco dependence: Code(s): F17.200 - Nicotine dependence, unspecified, uncomplicated Status: Acute Assessment and Plan: * Encouraged cessation (7) Acute hypokalemia: Code(s): E87.6 - Hypokalemia Status: Acute Assessment and Plan: * Being replaced with IV KCL by hospitalist (8) Acid reflux: Code(s): K21.9 - Gastro-esophageal reflux disease without esophagitis Status: Acute Assessment and Plan: * Recent symptoms of reflux that was treated with a PPI, which has provided some relief. Continue IV Protonix for now while NPO (9) Morbid obesity with body mass index (BMI) of 40.0 to 49.9: Code(s): E66.01 - Morbid (severe) obesity due to excess calories Status: Acute Plan I have discussed the patient's case and plan of care with Dr. Mayfield. History of Present Illness Consult details Consult date: 01/10/25 Reason for consult: other (Large bowel obstruction, retroperitoneal abscess) Requesting physician: Selma Schwartz APRN Narrative: This is a 29-year-old male with a history of morbid obesity, tobacco abuse, heavy alcohol use, anxiety/depression, and tachycardia, who we have been asked to see in surgical consultation for a large bowel obstruction and retroperitoneal abscess. He reports having cramping abdominal pain over the past 3 months. He has actually been evaluated by his PCP on multiple occasions for his symptoms. He initially thought it was related to gas pains and constipation. Over the past few months, he has also noted a change in his bowel habits. He has had smaller loose stools and feels like he has incomplete bowel evacuation. His bowels go from diarrhea to loose stools, but denies any blood in his stools. No unintentional weight loss. His pain is intermittent and does not inhibit his daily activities. He also noticed reflux symptoms and was started on a PPI, which did help those symptoms. His abdominal pain is typically across his upper abdomen, but at times his abdominal pain moves and migrates all over his abdomen. Over the past few days he has noticed increase abdominal distension and bloating, as well as increased upper abdominal pain. He has continued to pass gas and have loose stools. He presented to the ED yesterday. Labs showed a white blood cell count of 14,000, hemoglobin 13.6, hematocrit 40, platelets [id number], sodium 133, potassium 2.8, lactic acid 1.5, LFTs normal, magnesium 1.7, albumin 3.4. CT scan of the abdomen and pelvis showed a mass of the descending colon, which may be malignancy or diverticulitis with micro perforation and abscess involving the adjacent left psoas muscle measuring 5.1 x 2.0 x 2.1 cm. Also noted is a bowel obstruction from the descending colon mass, and mild mesenteric lymphadenopathy which may be reactive or metastatic disease. CTA of the chest showed no pulmonary embolus with sensitivity mildly decreased due to motion artifact. He was admitted to the hospitalist service and started on IV Zosyn. Potassium has been replaced, but remains low at 2.8 this morning. Potassium chloride ordered again today IV. He is NPO. Denies any previous abdominal surgeries in the past. He has never had a colonoscopy or EGD. He admits to smoking about 1 pack per day of cigarettes and drinking about a fifth of fireball daily. Review of Systems 2 Review of Systems: All systems reviewed & are unremarkable except as noted in HPI and below PMFSH Past Medical History Medical History Morbid obesity Elevated liver enzymes Anxiety with depression Surgical History Surgical History History of hip surgery Family History Family History Father No problems noted. Mother No problems noted. Sibling No problems noted. Social History Social History Smoking packs per day: 1 Smoking cigarettes per day: 20.0 Smoking status: Current every day smoker Tobacco type: cigarettes Second hand tobacco smoke exposure: Yes Alcohol intake: current Drinks per week: 30 Alcohol use details: patient drinks whiskey Substance use: never Substance use type: does not use Other substance usage details: FIFTH OF HARD LIQUIOR DAILY Do You Feel Safe in your Home?: Yes Lack of Transportation: No Lack of Food: Never True Current Housing: I Have Housing Concerned About Future Housing: No Difficulty Paying Gas/Electric Bills: No Difficulty Paying for Meds: No Currently Unemployed: No Education: High School Diploma/GED Difficulty w/ Childcare or Family Care: No Living arrangements: with family Occupation/Education: occupation Additional occupation/education comments: [employer] Gender identity (if verbalized by the patient): Male Spiritual care concerns: No Meds Home Medications and Allergies Home Medications ?Medication ?Instructions ?Recorded ?Confirmed ?Type bupropion HCl 300 mg 24 hr tablet, 300 mg PO QAM #30 t abs 12/16/24 01/10/25 Rx extended release omeprazole 40 mg capsule,delayed 40 mg PO DAILY #90 ca ps 12/16/24 01/10/25 Rx release propranolol 60 mg capsule,24 60 mg PO DAILY #30 caps 0 12/16/24 01/10/25 Rx hr,extended release quetiapine 50 mg tablet 50 mg PO QHS #30 tabs 01/10/25 Rx lorazepam 1 mg tablet 1 mg PO DAILY PRN anxiety #3 0 tabs 12/21/24 01/10/25 Rx Allergies Allergy/AdvReac Type Severity Reaction Status Date / Time banana Allergy Unknown Unknown Verified 01/10/25 04:45 Vital Signs Vital Signs - 24 hr 01/09/25 18:22 01/09/25 22:49 01/09/25 22:51 Temperature 97.3 F L Pulse Rate 124 H 116 H 116 H Respiratory Rate 18 19 18 Blood Pressure 143/118 H 146/100 H Pulse Oximetry 97 97 97 Oxygen Delivery Room Air 01/09/25 23:00 01/09/25 23:01 01/09/25 23:14 Temperature 98.7 F Pulse Rate 115 H 114 H 116 H Respiratory Rate 27 H 23 H 18 Blood Pressure 150/96 H 150/96 H Pulse Oximetry 93 91 95 Oxygen Delivery 01/09/25 23:15 01/09/25 23:17 01/09/25 23:30 Temperature Pulse Rate 113 H 116 H 112 H Respiratory Rate 21 H 18 25 H Blood Pressure 131/104 H Pulse Oximetry 94 95 93 Oxygen Delivery 01/09/25 23:31 01/09/25 23:45 01/09/25 23:47 Temperature Pulse Rate 111 H 111 H 114 H Respiratory Rate 21 H 23 H 23 H Blood Pressure 145/104 H 128/84 Pulse Oximetry 88 L 94 96 Oxygen Delivery 01/10/25 00:08 01/10/25 00:10 01/10/25 00:15 Temperature Pulse Rate Respiratory Rate Blood Pressure 130/98 H Pulse Oximetry 100 96 94 Oxygen Delivery 01/10/25 00:16 01/10/25 00:30 01/10/25 00:31 Temperature Pulse Rate Respiratory Rate Blood Pressure 137/97 H 148/95 H Pulse Oximetry 92 96 90 Oxygen Delivery 01/10/25 00:45 01/10/25 00:46 01/10/25 01:00 Temperature Pulse Rate Respiratory Rate Blood Pressure 158/114 H Pulse Oximetry 94 90 93 Oxygen Delivery 01/10/25 01:02 01/10/25 01:15 01/10/25 01:17 Temperature Pulse Rate Respiratory Rate Blood Pressure 172/144 H 156/97 H Pulse Oximetry 96 95 94 Oxygen Delivery 01/10/25 01:30 01/10/25 01:32 01/10/25 01:45 Temperature Pulse Rate Respiratory Rate Blood Pressure 164/105 H Pulse Oximetry 92 94 91 Oxygen Delivery 01/10/25 01:46 01/10/25 02:00 01/10/25 02:19 Temperature Pulse Rate Respiratory Rate Blood Pressure 160/99 H Pulse Oximetry 89 L 95 95 Oxygen Delivery 01/10/25 02:21 01/10/25 02:36 01/10/25 02:45 Temperature Pulse Rate 107 H Respiratory Rate 21 H Blood Pressure 143/97 H Pulse Oximetry 97 95 91 Oxygen Delivery 01/10/25 02:46 01/10/25 02:47 01/10/25 03:00 Temperature Pulse Rate 107 H 105 H 109 H Respiratory Rate 25 H 20 24 H Blood Pressure 130/84 Pulse Oximetry 94 94 93 Oxygen Delivery 01/10/25 03:01 01/10/25 03:15 01/10/25 03:16 Temperature Pulse Rate 107 H 107 H 109 H Respiratory Rate 22 H 25 H 20 Blood Pressure 126/76 134/94 H Pulse Oximetry 94 92 93 Oxygen Delivery 01/10/25 03:30 01/10/25 03:31 01/10/25 03:45 Temperature Pulse Rate Respiratory Rate Blood Pressure 120/84 Pulse Oximetry 91 93 91 Oxygen Delivery 01/10/25 03:46 01/10/25 04:00 01/10/25 04:01 Temperature Pulse Rate Respiratory Rate Blood Pressure 124/75 130/88 Pulse Oximetry 93 90 94 Oxygen Delivery 01/10/25 04:15 01/10/25 04:16 01/10/25 04:56 Temperature 98.2 F Pulse Rate 112 H Respiratory Rate 20 Blood Pressure 144/88 H 145/95 H Pulse Oximetry 93 95 96 Oxygen Delivery 01/10/25 05:13 01/10/25 06:14 01/10/25 08:00 Temperature Pulse Rate 103 H 100 Respiratory Rate Blood Pressure Pulse Oximetry Oxygen Delivery Room Air 01/10/25 08:40 Temperature Pulse Rate Respiratory Rate Blood Pressure Pulse Oximetry Oxygen Delivery Room Air Exam 2 Const: General: comfortable and no acute distress Nutritional Appearance: o bese Orientation/consciousness: patient oriented x3 HENMT: Head: normocephalic and atraumatic Ears: hearing grossly normal bilaterally Mouth: Yes moist mucous membranes Eyes: General: appearance normal, both eyes and all related structures P upils: Equal, round and reactive pupils present Neck: Neck: normal visual inspection and full ROM Resp: Effort & Inspection: no respiratory distress Auscultation: clear to auscultation bilaterally Cardio: Rate: tachycardic Rhythm: regular rhythm Peripheral pulses: P eripheral pulses 2+ throughout GI: Inspection: distended, Pannus present, obesity, no scars and no visible herniation GI Palp: Yes Soft to palpation (mostly soft with increased distention and more firm in the upper abdomen), Yes Tenderness to palpation present (GI) (diffusely tender), Yes Guarding due to palpation present (GI), No Rigid due to palpation and No Rebound tenderness present Percussion: Yes tympanic to percussion Auscultation: normal bowel sounds Rectal Exam: d eferred Skin: General skin exam: normal color Neuro: General: moves all extremities and no focal motor deficits Speech: n ormal speech Motor exam (neuro): 5/5 motor strength present throughout Extrem: General: normal to inspection and no edema Psych: Mental Status: mental status grossly normal Attitude: cooperative Insight: Good insight present (Psych) Judgement: Good judgement present (Psych) Results Labs 01/10/25 04:58 01/10/25 04:58 Labs: Abnormal lab results 01/09/25 01/10/25 01/10/25 Range/Units 23:12 00:59 04:58 WBC 14.0 H 11.8 H (4.5-10.0) K/mm3 RBC 4.44 L (4.6-6.20) M/mm3 Hgb 13.6 L D 13.1 L (14.0-18.0) g/dL Hct 40.4 L 38.7 L (42.0-52.0) % RDW 14.7 H 14.7 H (11.5-14.5) % Plt Count 449 H D 462 H (150-375) k/mm3 Immature Gran % (Auto) 0.8 H 0.8 H (0-0.5) % Neut % (Auto) 73.8 H (45.5-73.1) % Lymph % (Auto) 13.3 L 17.8 L (18.3-44.2) % [place] % (Auto) 11.0 H 10.3 H (2.6-8.5) % [place] # (Auto) 1.5 H 1.2 H (0.1-0.6) K/mm3 Abs Immat Gran (auto) 0.11 H 0.09 H (0.00-0.031) K/mm3 Absolute Neuts (auto) 10.3 H 8.2 H (1.3-6.7) K/mm3 Sodium 133 L 132 L (137-145) mmol/L Potassium 2.8 L* 2.8 L* (3.4-5.0) mmol/L Chloride 90 L 95 L (98-107) mmol/L Carbon Dioxide 33 H (22-30) mmol/L BUN 5 L D 6 L (9-20) mg/dL Creatinine 0.55 L 0.51 L (0.7-1.3) mg/dL Glucose 117 H (65-110) mg/dL Calcium 8.2 L (8.4-10.2) mg/dL Albumin 3.4 L (3.5-5.1) g/dL Lipase 22 L (23-300) U/L Ur Specific [place] > 1.045 H (1.001-1.035) Urine Ketones Trace H (Negative) mg/dL Urine Bilirubin 2+ H (Negative) Urine Urobilinogen >=8.0 H (<2.0) mg/dL Diabetes panel 01/09/25 01/10/25 Range/Units 23:12 04:58 Sodium 133 L 132 L (137-145) mmol/L Potassium 2.8 L* 2.8 L* (3.4-5.0) mmol/L Chloride 90 L 95 L (98-107) mmol/L Carbon Dioxide 33 H 30 (22-30) mmol/L BUN 5 L D 6 L (9-20) mg/dL Creatinine 0.55 L 0.51 L (0.7-1.3) mg/dL Glucose 117 H 104 (65-110) mg/dL Calcium 8.6 8.2 L (8.4-10.2) mg/dL AST 25 (17-59) U/L ALT 17 (6-50) U/L Alkaline Phosphatase 114 (38-126) U/L Total Protein 7.0 (6.3-8.2) g/dL Albumin 3.4 L (3.5-5.1) g/dL Calcium panel 01/09/25 01/10/25 Range/Units 23:12 04:58 Calcium 8.6 8.2 L (8.4-10.2) mg/dL Albumin 3.4 L (3.5-5.1) g/dL Pituitary panel 01/09/25 01/10/25 Range/Units 23:12 04:58 Sodium 133 L 132 L (137-145) mmol/L Potassium 2.8 L* 2.8 L* (3.4-5.0) mmol/L Chloride 90 L 95 L (98-107) mmol/L Carbon Dioxide 33 H 30 (22-30) mmol/L BUN 5 L D 6 L (9-20) mg/dL Creatinine 0.55 L 0.51 L (0.7-1.3) mg/dL Glucose 117 H 104 (65-110) mg/dL Calcium 8.6 8.2 L (8.4-10.2) mg/dL Adrenal panel 01/09/25 01/10/25 Range/Units 23:12 04:58 Sodium 133 L 132 L (137-145) mmol/L Potassium 2.8 L* 2.8 L* (3.4-5.0) mmol/L Chloride 90 L 95 L (98-107) mmol/L Carbon Dioxide 33 H 30 (22-30) mmol/L BUN 5 L D 6 L (9-20) mg/dL Creatinine 0.55 L 0.51 L (0.7-1.3) mg/dL Glucose 117 H 104 (65-110) mg/dL Calcium 8.6 8.2 L (8.4-10.2) mg/dL Total Bilirubin 1.1 (0.2-1.3) mg/dL AST 25 (17-59) U/L ALT 17 (6-50) U/L Alkaline Phosphatase 114 (38-126) U/L Total Protein 7.0 (6.3-8.2) g/dL Albumin 3.4 L (3.5-5.1) g/dL All other labs normal. Imaging Additional studies: ITS Impressions Chest CTA 01/10/25 07:31 IMPRESSION: 1. No pulmonary embolus. Sensitivity is mildly decreased by motion artifact. 2. Distended colon, consistent with distal obstruction. Abdomen/Pelvis CT 01/10/25 08:01 IMPRESSION: 1. Mass of the descending colon, which may be malignancy or diverticulitis with microperforation and abscess involving the adjacent left psoas muscle. 2. Bowel obstruction from the descending colon mass. 3. Mild mesenteric lymphadenopathy which may be reactive or metastatic disease.
[2025-01-10] MEDS: NICOTINE (*PBKC) 14 MG PATCH 1 PATCH TRANSDERM (14:33)
[2025-01-10] MEDS: MORPHINE SULFATE (*CRX) 4 MG/ML INJ IV PUSH (14:33)
[2025-01-10] MEDS: ONDANSETRON INJ 4 MG/2 ML VIAL IV PUSH (14:39)
[2025-01-10] MEDS: buPROPion HCL XL (24 HR) 150 MG TABCR 300 MG PO (15:21)
[2025-01-11] VITALS (10 sets, daily range): BP systolic 119–132; BP diastolic 69–89; PULSE 80–119; RESP 16–20; TEMP 36.4–36.7; O2SAT 91–96
[2025-01-11 05:20] LABS: Hematocrit 36.3 % (42.0-52.0); Hemoglobin 11.9 g/dL (14.0-18.0); Immature Granulocyte Percent A 0.5 % (0-0.5); Lymphocytes Absolute Auto 1.43 K/mm3 (0.9-3.2); Mean Corpuscular HGB Conc 32.8 g/dl (32-36); Mean Corpuscular Hemoglobin 29.0 pg (26-34); Mean Corpuscular Volume 88.5 fl (80-100); Nucleated Red Blood Cells Absolute Auto 0.000 K/mm3 (0.0-0.012); Nucleated Red Blood Cells Perc 0.0 % (0.0-0.2); Platelet Count Result 391 k/mm3 (150-375); Red Blood Count 4.10 M/mm3 (4.6-6.20); White Blood Count 9.2 K/mm3 (4.5-10.0)
[2025-01-11 05:32] LABS: Alanine Aminotransferase 8 U/L (6-50); Albumin Level 2.7 g/dL (3.5-5.1); Alkaline Phosphatase 85 U/L (38-126); Aspartate Amino Transferase 15 U/L (17-59); Calcium 7.7 mg/dL (8.4-10.2); Carbon Dioxide 29 mmol/L (22-30); Chloride 99 mmol/L (98-107); Estimated CRCL calculation 244 ml/min; Estimated Glomerular Filt Rate > 60; Glucose 92 mg/dL (65-110)
[2025-01-11 05:33] LABS: Anion Gap 6 mmol/L (4-12); Bilirubin,Total 0.8 mg/dL (0.2-1.3); Blood Urea Nitrogen 4 mg/dL (9-20); Magnesium 1.7 mg/dL (1.6-2.3); Potassium 2.5 mmol/L (3.4-5.0); Sodium 134 mmol/L (137-145); Total Protein 5.7 g/dL (6.3-8.2)
--- NOTE | 2025-01-11 05:41 | P.PNCROSS_ITS ---
Event Note Event Note Event Note: Potassium this a.m. critically low at 2.5. Patient asymptomatic. Continue tel emetry, replace with 40 KCL p.o., 40 KCl IV. Consider adding KCl and continuous IV fluids after. Give magnesium 1 g rider. Advise serial monitoring throughout the day Hold Seroquel, check EKG
--- NOTE | 2025-01-11 05:45 | ECG_ITS ---
Test Date: 2025-01-11 07:12:07 Measurements Intervals [place] Rate: 103 P: -47 OK: 161 QRS: 55 QRSD: 104 T: -5 QT: 300 QTc: 393 Interpretive Statements SINUS TACHYCARDIA BORDERLINE ST-T WAVE ABNORMALITY- INF/LAT LEADS BASELINE ARTIFACT- I, II, III, AVR, V1 BORDERLINE ECG No previous ECG available for comparison Electronically Signed On 01-11-2025 08:20:16 CDT by Juan Valadez D.O.
[2025-01-11] MEDS: PIPERACILLIN/TAZOBACTAM SOD 3.375 GM in SODIUM CHLORIDE 0.9% IV 50 ML 100 ML IVPB ×3 (05:54→18:55)
[2025-01-11] MEDS: MAGNESIUM SULF 1 GM/D5W 100 ML 1 GM/100 ML BAG IVPB (06:40)
[2025-01-11] MEDS: POTASSIUM CHLORIDE INJ 40 MEQ in SODIUM CHLORIDE 0.9% IV 500 ML 130 MEQ IVPB ×2 (08:43→14:43)
[2025-01-11] MEDS: PROPRANOLOL HCL ER 60 MG CAPSULE PO (08:43)
[2025-01-11] MEDS: POTASSIUM CHLORIDE 20 MEQ ER TABLET 40 MEQ PO ×2 (08:43→17:32)
[2025-01-11] MEDS: SODIUM CHLORIDE 0.9% IV 1,000 ML 125 ML IV CONT (08:43)
[2025-01-11] MEDS: NICOTINE (*PBKC) 14 MG PATCH 1 PATCH TRANSDERM (08:44)
[2025-01-11] MEDS: buPROPion HCL XL (24 HR) 150 MG TABCR 300 MG PO (08:44)
--- NOTE | 2025-01-11 09:38 | P.PNIM_ITS ---
Progress Note: A&P Assessment and Plan (1) Bowel obstruction: Code(s): K56.609 - Unspecified intestinal obstruction, unspecified as to partial versus complete obstruction Status: Acute Assessment and Plan: 01/10 CT scan abdomen pelvis demonstrating large bowel obstruction due to left colonic probable neoplastic mass and left colonic perforation with retroperitoneal abscess 5.5 cm adjacent to the psoas muscle, final interpretation pending. -Surgery following appreciate recommendations --Resume IV fluids: D5@75/hr x1 bag --Clear liquids -- Zofran p.r.n. -- Protonix 40 mg IV q.a.m --Continue Zosyn 3.375 g IV q.6 hours. (2) Abdominal abscess: Status: Acute Assessment and Plan: See above (3) Tachycardia: Code(s): R00.0 - Tachycardia, unspecified Status: Acute Assessment and Plan: Patient tells me he takes propanolol which was prescribed for tachycardia. Resumed, HR up to 119 this morning --Continue propanolol. (4) Acute hypokalemia: Code(s): E87.6 - Hypokalemia Status: Acute Assessment and Plan: Potassium 2.8 on admission s/p 60meq 01/09 01/10 2.8, received 40meq 01/11 2.5 80meq, repeat 3.1 80meq more. Having diarrhea today. Also repeat mag 1.7 1g Mag Plan Follow BMP & Mag in AM Follow diarrhea, PO intake (5) Hyponatremia: Code(s): E87.1 - Hypo-osmolality and hyponatremia Status: Acute Assessment and Plan: Sodium 133 on admission, has been 132-134. Likely due to vomiting and hypovolemia. Continue fluids. Continue to trend. Continue fluids, will continue to re-check. (6) Tobacco dependence: Code(s): F17.200 - Nicotine dependence, unspecified, uncomplicated Status: Acute Assessment and Plan: Pt smokes 1 ppd x >10 years Nicotine patch ordered today based on ppd status = 14mg (7) Alcohol abuse: Code(s): F10.10 - Alcohol abuse, uncomplicated Status: Acute Assessment and Plan: Patient drinks a 5th of hard liquor per day., he has never had withdrawal or seizures. No evidence of withdrawal --Continue to monitorl Plan FULL CODE SCDs. Clear liquids Normal saline and D5 water Time Spent With Patient Time: 57 minutes Subjective Date/time seen: 01/11/25 13:58 Interval history: Intermittent abdominal cramping. Had 2 episodes of diarrhea today Potassium 2.5 Gave 80meq Kcl today and 1G mag, recheck labs at 1400 3.1, gave 80meq more 29 y/o hx ETOH use disorder, admitted for a bowel obstruction, possible colon neoplasm on CT. Surgery consulted, following. Question of a psoas abscess. Treating hypokalemia. Review of Systems Review of Systems: All systems reviewed & are unremarkable except as noted in HPI and below (Subjective) Exam Narrative: General - Awake and alert. No acute distress Eyes - PERRLA, EOM intact ENT - No thrush, No erythema Neck - No noticeable or palpable swelling Lymph Nodes - No lymphadenopathy Cardiovascular - RRR no m/r/g, no JVD Lungs: Clear to auscultation, No wheezing, use of accessory muscles, no crackles Skin - Skin warm and dry, no wounds or rashes Abdomen - Normal bowel sounds, abdomen soft and mildy tender Extremities - No edema, cyanosis or clubbing Musculoskeletal - 5/5 strength, normal range of motion, no swollen or erythematous joints. Neurological ? Alert and oriented x 3, CN 2-12 grossly intact. Psych: Normal mood and affect Objective Data Vital Signs Vital Signs: Vital Signs - 24 hr 01/10/25 12:00 01/10/25 14:00 01/10/25 16:00 Temperature 98.1 F Pulse Rate 96 111 H 113 H Respiratory Rate 20 Blood Pressure 137/86 Pulse Oximetry 92 Oxygen Delivery Fraction of Inspired Oxygen 01/10/25 20:00 01/10/25 20:00 01/10/25 20:10 Temperature Pulse Rate 105 H 100 Respiratory Rate 20 Blood Pressure Pulse Oximetry 90 Oxygen Delivery Room Air Room Air Fraction of Inspired Oxygen 21 01/10/25 21:15 01/11/25 00:00 01/11/25 03:53 Temperature 98.0 F 98.0 F Pulse Rate 101 H 111 H 107 H Respiratory Rate 20 20 Blood Pressure 133/92 H 132/89 Pulse Oximetry 96 91 Oxygen Delivery Fraction of Inspired Oxygen 01/11/25 04:00 01/11/25 08:43 Temperature Pulse Rate 104 H 103 H Respiratory Rate Blood Pressure Pulse Oximetry Oxygen Delivery Fraction of Inspired Oxygen Intake/Output Intake/Output: Intake & Output 01/08/25 01/09/25 01/10/25 01/11/25 23:59 23:59 23:59 23:59 Intake Total 4080 1050 Balance 4080 1050 Meds/Results Medications: Active Medications Generic Name Dose Route Start Last Admin Trade Name Freq PRN Reason Stop Dose Admin Bupropion HCl 300 mg 01/10/25 15:05 01/11/25 08:44 Bupropion Hcl Xl (24 Hr) 150 Mg Tabcr PO 300 mg QAM ANNE Administration Piperacillin Sod/Tazobactam 50 mls @ 100 mls/hr 01/10/25 06:00 01/11/25 06:24 Sod 3.375 gm/ Sodium Chloride IVPB Infused Q6HR ANNE Infusion Sodium Chloride 1,000 mls @ 125 mls/hr 01/10/25 01:10 01/11/25 08:43 Normal Saline Iv IV CONT 125 mls/hr .Q8H ANNE Administration Lorazepam 1 mg 01/10/25 15:04 Lorazepam (*Crx) 1 Mg Tablet PO DAILY PRN Anxiety Morphine Sulfate 4 mg 01/10/25 01:10 01/10/25 14:33 Morphine Sulfate (*Crx) 4 Mg/Ml Inj IV PUSH 4 mg Q2H PRN Administration Pain Rated 7-10 Nicotine 1 patch 01/10/25 14:05 01/11/25 08:44 Nicotine (*Pbkc) 14 Mg Patch TRANSDERM 1 patch DAILY ANNE Administration Ondansetron HCl 4 mg 01/10/25 01:10 01/10/25 14:39 Ondansetron Inj 4 Mg/2 Ml Vial IV PUSH 4 mg Q4H PRN Administration Nausea Pantoprazole Sodium 40 mg 01/10/25 09:00 01/10/25 08:06 Pantoprazole Sodium Iv 40 Mg Vial IV PUSH 40 mg On Hold: 01/11/25 05:47 QAM ANNE Administration Propranolol HCl 60 mg 01/10/25 09:00 01/11/25 08:43 Propranolol Hcl Er 60 Mg Capsule PO 60 mg DAILY ANNE Administration Quetiapine Fumarate 50 mg 01/10/25 21:00 01/10/25 21:50 Quetiapine Fumarate 25 Mg Tablet PO 50 mg On Hold: 01/11/25 05:45 QHS ANNE Administration Radiology Results: ITS Impressions Chest CTA 01/10/25 07:31 IMPRESSION: 1. No pulmonary embolus. Sensitivity is mildly decreased by motion artifact. 2. Distended colon, consistent with distal obstruction. Abdomen/Pelvis CT 01/10/25 08:01 IMPRESSION: 1. Mass of the descending colon, which may be malignancy or diverticulitis with microperforation and abscess involving the adjacent left psoas muscle. 2. Bowel obstruction from the descending colon mass. 3. Mild mesenteric lymphadenopathy which may be reactive or metastatic disease. Labs Labs: Laboratory Results - last 24 hr 01/11/25 04:51 WBC 9.2 RBC 4.10 L Hgb 11.9 L Hct 36.3 L MCV 88.5 MCH 29.0 MCHC 32.8 RDW 14.9 H Plt Count 391 H MPV 8.3 Immature Gran % (Auto) 0.5 Neut % (Auto) 70.6 Lymph % (Auto) 15.5 L [place] % (Auto) 11.3 H Eos % (Auto) 1.8 Baso % (Auto) 0.3 Lymph # (Auto) 1.43 [place] # (Auto) 1.0 H Eos # (Auto) 0.2 Baso # (Auto) 0.0 Abs Immat Gran (auto) 0.05 H Absolute Neuts (auto) 6.5 Absolute Nucleated RBC 0.000 Nucleated RBC % 0.0 Sodium 134 L Potassium 2.5 L* Chloride 99 Carbon Dioxide 29 Anion Gap 6 BUN 4 L Creatinine 0.48 L Estim Creat Clear Calc 244 Estimated GFR > 60 Glucose 92 Calcium 7.7 L Magnesium 1.7 Total Bilirubin 0.8 AST 15 L ALT 8 Alkaline Phosphatase 85 Total Protein 5.7 L Albumin 2.7 L Quality VTE Prophylaxis VTE prophylaxis: mechanical ordered Hospitalist [facility] Advance Care Plan I have confirmed that the patient's Advanced Care Plan is present, code status is documented, or surrogate decision maker is listed in patient medical record.: Yes Medication Reconciliation I have utilized all available resources to obtain, update and review the patients current medications (includes all prescriptions, OTC, herbals, cannabis, and nutritional supplements).: Yes
--- NOTE | 2025-01-11 11:34 | P.PNGS_ITS ---
Progress Note: A&P Assessment and Plan (1) Large bowel obstruction: Code(s): K56.609 - Unspecified intestinal obstruction, unspecified as to partial versus complete obstruction Status: Acute Assessment and Plan: * Secondary to descending colon mass vs inflammatory stricture. Still having bowel function and appears to have a partial obstruction. * Will advance to full liquids and adjust his pain medication to try and improve pain control/cramping * Potassium being replaced by Hospitalist and recheck this afternoon * Discussed with the patient again today that if he develops more signs of a high-grade obstruction, then he may require surgical intervention more urgently (2) Mass of colon: Code(s): K63.89 - Other specified diseases of intestine Status: Acute Assessment and Plan: * CT reviewed with the Radiologist. Will hold off on Hypaque enema as it will likely not give any additional diagnostic information at this time. * If he can improve with conservative measures and antibiotics at this time, he will ideally need a colonoscopy in 4-6 weeks to evaluate the stricture/mass. (3) Psoas abscess, left: Code(s): K68.12 - Psoas muscle abscess Status: Acute Assessment and Plan: * Likely secondary to bowel perforation as mentioned above. CT reviewed with Radiologist and will defer percutaneous drainage at this time. Plan to repeat CT scan in a few days. (4) Acute hypokalemia: Code(s): E87.6 - Hypokalemia Status: Acute Assessment and Plan: * Being replaced by Hospitalist with repeat labs this afternoon Plan I have discussed the patient's case and plan of care with Dr. Mayfield. Subjective Subjective Date/Time Seen: 01/11/25 11:34 Patient reports: no new complaints, flatus and bowel movement (2 loose stools since I saw the patient yesterday) Interval history: Patient feels about the same. Reports abdominal cramping and gas pains that are coming and going. He feels pretty uncomfortable right now due to the cramping. He is passing some gas and had 2 BMs since yesterday. They are still loose. No nausea or vomiting. He still feels bloating is unchanged. No other complaints at this time. Exam Const: General: no acute distress and uncomfortable (due to cramping pain) Nutritional Appearance: obese Orientation/consciousness: patient oriented x3 GI: Inspection: distended and no visible herniation GI Palp: Yes Soft to palpation, Yes Tenderness to palpation present (GI) (diffusely tender, no focal tenderness), No Guarding due to palpation present (GI) and No Rebound tenderness present Auscultation: normal bowel sounds Rectal Exam: deferred Objective Data Vital Signs Vital Signs: Vital Signs - 24 hr 01/10/25 12:00 01/10/25 14:00 01/10/25 16:00 Temperature 98.1 F Pulse Rate 96 111 H 113 H Respiratory Rate 20 Blood Pressure 137/86 Pulse Oximetry 92 Oxygen Delivery Fraction of Inspired Oxygen 01/10/25 20:00 01/10/25 20:00 01/10/25 20:10 Temperature Pulse Rate 105 H 100 Respiratory Rate 20 Blood Pressure Pulse Oximetry 90 Oxygen Delivery Room Air Room Air Fraction of Inspired Oxygen 21 01/10/25 21:15 01/11/25 00:00 01/11/25 03:53 Temperature 98.0 F 98.0 F Pulse Rate 101 H 111 H 107 H Respiratory Rate 20 20 Blood Pressure 133/92 H 132/89 Pulse Oximetry 96 91 Oxygen Delivery Fraction of Inspired Oxygen 01/11/25 04:00 01/11/25 08:00 01/11/25 08:43 Temperature Pulse Rate 104 H 119 H 103 H Respiratory Rate Blood Pressure Pulse Oximetry Oxygen Delivery Fraction of Inspired Oxygen 01/11/25 08:45 Temperature Pulse Rate Respiratory Rate Blood Pressure Pulse Oximetry Oxygen Delivery Room Air Fraction of Inspired Oxygen Intake/Output Intake/Output: Intake & Output 01/08/25 01/09/25 01/10/25 01/11/25 23:59 23:59 23:59 23:59 Intake Total 4080 1150 Balance 4080 1150 Meds/Results Medications: Active Medications Generic Name Dose Route Start Last Admin Trade Name Freq PRN Reason Stop Dose Admin Bupropion HCl 300 mg 01/10/25 15:05 01/11/25 08:44 Bupropion Hcl Xl (24 Hr) 150 Mg Tabcr PO 300 mg QAM ANNE Administration Piperacillin Sod/Tazobactam 50 mls @ 100 mls/hr 01/10/25 06:00 01/11/25 06:24 Sod 3.375 gm/ Sodium Chloride IVPB Infused Q6HR ANNE Infusion Sodium Chloride 1,000 mls @ 125 mls/hr 01/10/25 01:10 01/11/25 10:31 Normal Saline Iv IV CONT Not Given .Q8H ANNE Potassium Chloride 40 meq/ 520 mls @ 130 mls/hr 01/11/25 10:00 Sodium Chloride IVPB 01/11/25 13:59 ONCE ONE Lorazepam 1 mg 01/10/25 15:04 Lorazepam (*Crx) 1 Mg Tablet PO DAILY PRN Anxiety Morphine Sulfate 4 mg 01/10/25 01:10 01/10/25 14:33 Morphine Sulfate (*Crx) 4 Mg/Ml Inj IV PUSH 4 mg Q2H PRN Administration Pain Rated 7-10 Nicotine 1 patch 01/10/25 14:05 01/11/25 08:44 Nicotine (*Pbkc) 14 Mg Patch TRANSDERM 1 patch DAILY ANNE Administration Ondansetron HCl 4 mg 01/10/25 01:10 01/10/25 14:39 Ondansetron Inj 4 Mg/2 Ml Vial IV PUSH 4 mg Q4H PRN Administration Nausea Pantoprazole Sodium 40 mg 01/10/25 09:00 01/10/25 08:06 Pantoprazole Sodium Iv 40 Mg Vial IV PUSH 40 mg On Hold: 01/11/25 05:47 QAM ANNE Administration Propranolol HCl 60 mg 01/10/25 09:00 01/11/25 08:43 Propranolol Hcl Er 60 Mg Capsule PO 60 mg DAILY ANNE Administration Quetiapine Fumarate 50 mg 01/10/25 21:00 01/10/25 21:50 Quetiapine Fumarate 25 Mg Tablet PO 50 mg On Hold: 01/11/25 05:45 QHS ANNE Administration Radiology Results: ITS Impressions Chest CTA 01/10/25 07:31 IMPRESSION: 1. No pulmonary embolus. Sensitivity is mildly decreased by motion artifact. 2. Distended colon, consistent with distal obstruction. Abdomen/Pelvis CT 01/10/25 08:01 IMPRESSION: 1. Mass of the descending colon, which may be malignancy or diverticulitis with microperforation and abscess involving the adjacent left psoas muscle. 2. Bowel obstruction from the descending colon mass. 3. Mild mesenteric lymphadenopathy which may be reactive or metastatic disease. Labs Labs: Laboratory Results - last 24 hr 01/11/25 04:51 WBC 9.2 RBC 4.10 L Hgb 11.9 L Hct 36.3 L MCV 88.5 MCH 29.0 MCHC 32.8 RDW 14.9 H Plt Count 391 H MPV 8.3 Immature Gran % (Auto) 0.5 Neut % (Auto) 70.6 Lymph % (Auto) 15.5 L [place] % (Auto) 11.3 H Eos % (Auto) 1.8 Baso % (Auto) 0.3 Lymph # (Auto) 1.43 [place] # (Auto) 1.0 H Eos # (Auto) 0.2 Baso # (Auto) 0.0 Abs Immat Gran (auto) 0.05 H Absolute Neuts (auto) 6.5 Absolute Nucleated RBC 0.000 Nucleated RBC % 0.0 Sodium 134 L Potassium 2.5 L* Chloride 99 Carbon Dioxide 29 Anion Gap 6 BUN 4 L Creatinine 0.48 L Estim Creat Clear Calc 244 Estimated GFR > 60 Glucose 92 Calcium 7.7 L Magnesium 1.7 Total Bilirubin 0.8 AST 15 L ALT 8 Alkaline Phosphatase 85 Total Protein 5.7 L Albumin 2.7 L
[2025-01-11] MEDS: HYDROcodone/acetaminophen (*CRX) 10-325 MG TABLET 1 TAB PO (12:41)
[2025-01-11] MEDS: SIMETHICONE 125 MG CHEW TAB PO ×3 (12:41→20:20)
[2025-01-11] MEDS: DICYCLOMINE HCL 10 MG CAPSULE 20 MG PO ×2 (12:41→17:32)
[2025-01-11 14:07] LABS: Anion Gap 6 mmol/L (4-12); Blood Urea Nitrogen 4 mg/dL (9-20); Calcium 7.8 mg/dL (8.4-10.2); Carbon Dioxide 27 mmol/L (22-30); Chloride 99 mmol/L (98-107); Estimated CRCL calculation 248 ml/min; Estimated Glomerular Filt Rate > 60; Glucose 126 mg/dL (65-110); Potassium 3.1 mmol/L (3.4-5.0); Sodium 132 mmol/L (137-145)
[2025-01-11 14:08] LABS: Magnesium 1.9 mg/dL (1.6-2.3)
[2025-01-11] MEDS: SODIUM CHLORIDE 0.9% IV 1,000 ML 60 ML IV CONT (17:32)
[2025-01-11] MEDS: KETOROLAC 30 MG/ML VIAL (*BKC) IV PUSH (17:33)
[2025-01-11] MEDS: DEXTROSE 5%/0.9% SOD CHL 1,000 ML 75 ML IV CONT (20:18)
[2025-01-11] MEDS: HYDROcodone/acetaminophen (*CRX) 5-325 MG TABLET 1 TAB PO (20:20)
[2025-01-11 20:41] LABS: Anion Gap 3 mmol/L (4-12); Blood Urea Nitrogen 4 mg/dL (9-20); Calcium 7.7 mg/dL (8.4-10.2); Carbon Dioxide 29 mmol/L (22-30); Chloride 101 mmol/L (98-107); Estimated CRCL calculation 235 ml/min; Estimated Glomerular Filt Rate > 60; Glucose 99 mg/dL (65-110); Magnesium 2.0 mg/dL (1.6-2.3); Potassium 3.6 mmol/L (3.4-5.0); Sodium 133 mmol/L (137-145)
[2025-01-12] VITALS (10 sets, daily range): BP systolic 118–124; BP diastolic 76–88; PULSE 76–114; RESP 16–20; TEMP 36.4–36.5; O2SAT 94–97
[2025-01-12] MEDS: PIPERACILLIN/TAZOBACTAM SOD 3.375 GM in SODIUM CHLORIDE 0.9% IV 50 ML 100 ML IVPB ×4 (00:25→20:04)
[2025-01-12 04:27] LABS: Hematocrit 36.6 % (42.0-52.0); Hemoglobin 12.1 g/dL (14.0-18.0); Immature Granulocyte Percent A 0.8 % (0-0.5); Lymphocytes Absolute Auto 1.49 K/mm3 (0.9-3.2); Mean Corpuscular HGB Conc 33.1 g/dl (32-36); Mean Corpuscular Hemoglobin 29.7 pg (26-34); Mean Corpuscular Volume 89.7 fl (80-100); Nucleated Red Blood Cells Absolute Auto 0.000 K/mm3 (0.0-0.012); Nucleated Red Blood Cells Perc 0.0 % (0.0-0.2); Platelet Count Result 402 k/mm3 (150-375); Red Blood Count 4.08 M/mm3 (4.6-6.20); White Blood Count 10.8 K/mm3 (4.5-10.0)
[2025-01-12 04:41] LABS: Alanine Aminotransferase 12 U/L (6-50); Albumin Level 2.6 g/dL (3.5-5.1); Alkaline Phosphatase 84 U/L (38-126); Anion Gap 6 mmol/L (4-12); Aspartate Amino Transferase 19 U/L (17-59); Bilirubin,Total 0.7 mg/dL (0.2-1.3); Blood Urea Nitrogen 5 mg/dL (9-20); Calcium 7.8 mg/dL (8.4-10.2); Carbon Dioxide 25 mmol/L (22-30); Chloride 100 mmol/L (98-107); Estimated CRCL calculation 223 ml/min; Estimated Glomerular Filt Rate > 60; Glucose 136 mg/dL (65-110); Magnesium 1.9 mg/dL (1.6-2.3); Potassium 3.1 mmol/L (3.4-5.0); Sodium 131 mmol/L (137-145); Total Protein 5.6 g/dL (6.3-8.2)
--- NOTE | 2025-01-12 08:20 | PM.IMPN ---
Progress Note: A&P Assessment and Plan (1) Bowel obstruction: Code(s): K56.609 - Unspecified intestinal obstruction, unspecified as to partial versus complete obstruction Status: Acute Assessment and Plan: 01/10 CT scan abdomen pelvis demonstrating large bowel obstruction due to left colonic probable neoplastic mass and left colonic perforation with retroperitoneal abscess 5.5 cm adjacent to the psoas muscle, final interpretation pending. --Surgery following appreciate recommendations --Resume IV fluids: D5@75/hr x1 bag --NPO -- Zofran p.r.n. -- Protonix 40 mg IV q.a.m --Continue Zosyn 3.375 g IV q.6 hours. --Increased pain today, changed morphine 4mg to dilaudid 1mg q4 prn. Also having some relief with bentyl and simethicone (2) Abdominal abscess: Status: Acute Assessment and Plan: See above (3) Tachycardia: Code(s): R00.0 - Tachycardia, unspecified Status: Acute Assessment and Plan: Patient tells me he takes propanolol which was prescribed for tachycardia. Resumed, HR up to 119 this morning --Continue propanolol. (4) Acute hypokalemia: Code(s): E87.6 - Hypokalemia Status: Acute Assessment and Plan: Potassium 2.8 on admission s/p 60meq 01/09 01/10 2.8, received 40meq 01/11 2.5 80meq, repeat 3.1 80meq more. repeat 3.6 Having diarrhea today. Also repeat mag 1.7 1g Mag. 01/12 3.1 40&20meq today(total 60meq) Plan Follow BMP & Mag in AM Follow diarrhea, PO intake (5) Hyponatremia: Code(s): E87.1 - Hypo-osmolality and hyponatremia Status: Acute Assessment and Plan: Sodium 133 on admission, has been 131-134. Likely due to vomiting and hypovolemia. Resumed D5NS today. Continue to trend. Continue fluids, will continue follow (6) Tobacco dependence: Code(s): F17.200 - Nicotine dependence, unspecified, uncomplicated Status: Acute Assessment and Plan: Pt smokes 1 ppd x >10 years Nicotine patch ordered today based on ppd status = 14mg (7) Alcohol abuse: Code(s): F10.10 - Alcohol abuse, uncomplicated Status: Acute Assessment and Plan: Patient drinks a 5th of hard liquor per day., he has never had withdrawal or seizures. No evidence of withdrawal during admissoin --Continue to monitor Plan FULL CODE SCDs. Clear liquids Normal saline and D5 water Time Spent With Patient Time: 58 minutes Subjective Date/time seen: 01/12/25 08:20 Interval history: Reports pain is worse today. Potassium improved but still 3.1. Had one BM today. WBC about the same, slightly higher 9.2<10.8 Changed morphine to dilaudid 29 y/o hx ETOH use disorder, admitted for a bowel obstruction, possible colon neoplasm on CT. Surgery consulted, following. Question of a psoas abscess. Treating hypokalemia. Review of Systems Review of Systems: All systems reviewed & are unremarkable except as noted in HPI and below (Subjective) Exam Narrative: General - Awake and alert. No acute distress Eyes - PERRLA, EOM intact ENT - No thrush, No erythema Neck - No noticeable or palpable swelling Lymph Nodes - No lymphadenopathy Cardiovascular - RRR no m/r/g, no JVD Lungs: Clear to auscultation, No wheezing, use of accessory muscles, no crackles Skin - Skin warm and dry, no wounds or rashes Abdomen - Normal bowel sounds, abdomen soft and mildly tender Extremities - No edema, cyanosis or clubbing Musculoskeletal - 5/5 strength, normal range of motion, no swollen or erythematous joints. Neurological ? Alert and oriented x 3, CN 2-12 grossly intact. Psych: Normal mood and affect Objective Data Vital Signs Vital Signs: Vital Signs - 24 hr 01/11/25 08:43 01/11/25 08:45 01/11/25 12:00 Temperature Pulse Rate 103 H 93 Respiratory Rate Blood Pressure Pulse Oximetry Oxygen Delivery Room Air 01/11/25 14:00 01/11/25 16:00 01/11/25 20:00 Temperature 97.9 F Pulse Rate 87 83 Respiratory Rate 16 Blood Pressure 126/78 Pulse Oximetry 95 Oxygen Delivery Room Air 01/11/25 20:00 01/11/25 20:43 01/12/25 00:00 Temperature 97.6 F Pulse Rate 84 80 88 Respiratory Rate 20 Blood Pressure 119/69 Pulse Oximetry 96 Oxygen Delivery 01/12/25 04:00 01/12/25 04:37 Temperature 97.6 F Pulse Rate 90 86 Respiratory Rate 20 Blood Pressure 118/76 Pulse Oximetry 96 Oxygen Delivery Intake/Output Intake/Output: Intake & Output 01/09/25 01/10/25 01/11/25 01/12/25 23:59 23:59 23:59 23:59 Intake Total 4080 4450 390 Balance 4080 4450 390 Meds/Results Medications: Active Medications Generic Name Dose Route Start Last Admin Trade Name Freq PRN Reason Stop Dose Admin Acetaminophen 650 mg 01/11/25 11:35 Acetaminophen 325 Mg Tablet PO Q4H PRN Mild Pain (1-3) or Fever Hydrocodone Bitart/Acetaminophen 1 tab 01/11/25 11:35 01/11/25 20:20 Hydrocodone/Acetaminophen (*Crx) 5-325 Mg Tablet PO 1 tab Q4H PRN Administration Pain Rated 4-6 Hydrocodone Bitart/Acetaminophen 1 tab 01/11/25 11:35 01/11/25 12:41 Hydrocodone/Acetaminophen (*Crx) 10-325 Mg Tablet PO 1 tab Q6H PRN Administration Pain Rated 7-10 Bupropion HCl 300 mg 01/10/25 15:05 01/11/25 08:44 Bupropion Hcl Xl (24 Hr) 150 Mg Tabcr PO 300 mg QAM ANNE Administration Dicyclomine HCl 20 mg 01/11/25 11:36 01/11/25 17:32 Dicyclomine Hcl 10 Mg Capsule PO 01/12/25 16:00 20 mg QID PRN Administration Abdominal Cramping Piperacillin Sod/Tazobactam 50 mls @ 100 mls/hr 01/10/25 06:00 01/12/25 05:44 Sod 3.375 gm/ Sodium Chloride IVPB Infused Q6HR ANNE Infusion Sodium Chloride 1,000 mls @ 60 mls/hr 01/10/25 01:10 01/11/25 17:32 Normal Saline Iv IV CONT 60 mls/hr .[id number] ANNE Administration Ketorolac Tromethamine 30 mg 01/11/25 13:56 01/11/25 17:33 Ketorolac 30 Mg/Ml Vial (*Bkc) IV PUSH 30 mg Q6H PRN Administration Pain Rated 4-6 Lorazepam 1 mg 01/10/25 15:04 Lorazepam (*Crx) 1 Mg Tablet PO DAILY PRN Anxiety Morphine Sulfate 4 mg 01/10/25 01:10 01/10/25 14:33 Morphine Sulfate (*Crx) 4 Mg/Ml Inj IV PUSH 4 mg Q2H PRN Administration Pain Rated 7-10 Nicotine 1 patch 01/10/25 14:05 01/11/25 08:44 Nicotine (*Pbkc) 14 Mg Patch TRANSDERM 1 patch DAILY ANNE Administration Ondansetron HCl 4 mg 01/10/25 01:10 01/10/25 14:39 Ondansetron Inj 4 Mg/2 Ml Vial IV PUSH 4 mg Q4H PRN Administration Nausea Pantoprazole Sodium 40 mg 01/10/25 09:00 01/10/25 08:06 Pantoprazole Sodium Iv 40 Mg Vial IV PUSH 40 mg On Hold: 01/11/25 05:47 QAM ANNE Administration Propranolol HCl 60 mg 01/10/25 09:00 01/11/25 08:43 Propranolol Hcl Er 60 Mg Capsule PO 60 mg DAILY ANNE Administration Quetiapine Fumarate 50 mg 01/10/25 21:00 01/10/25 21:50 Quetiapine Fumarate 25 Mg Tablet PO 50 mg On Hold: 01/11/25 05:45 QHS ANNE Administration Simethicone 125 mg 01/11/25 13:00 01/11/25 20:20 Simethicone 125 Mg Chew Tab PO 125 mg QID ANNE Administration Radiology Results: ITS Impressions Chest CTA 01/10/25 07:31 IMPRESSION: 1. No pulmonary embolus. Sensitivity is mildly decreased by motion artifact. 2. Distended colon, consistent with distal obstruction. Abdomen/Pelvis CT 01/10/25 08:01 IMPRESSION: 1. Mass of the descending colon, which may be malignancy or diverticulitis with microperforation and abscess involving the adjacent left psoas muscle. 2. Bowel obstruction from the descending colon mass. 3. Mild mesenteric lymphadenopathy which may be reactive or metastatic disease. Labs Labs: Laboratory Results - last 24 hr 01/11/25 01/11/25 01/11/25 13:50 20:23 20:23 WBC RBC Hgb Hct MCV MCH MCHC RDW Plt Count MPV Immature Gran % (Auto) Neut % (Auto) Lymph % (Auto) [place] % (Auto) Eos % (Auto) Baso % (Auto) Lymph # (Auto) [place] # (Auto) Eos # (Auto) Baso # (Auto) Abs Immat Gran (auto) Absolute Neuts (auto) Absolute Nucleated RBC Nucleated RBC % Sodium 132 L 133 L Potassium 3.1 L 3.6 Chloride 99 101 Carbon Dioxide 27 29 Anion Gap 6 3 L BUN 4 L 4 L Creatinine 0.47 L 0.50 L Estim Creat Clear Calc 248 235 Estimated GFR > 60 > 60 Glucose 126 H 99 Calcium 7.8 L 7.7 L Magnesium 1.9 2.0 Cancelled Total Bilirubin AST ALT Alkaline Phosphatase Total Protein Albumin 01/12/25 04:01 WBC 10.8 H RBC 4.08 L Hgb 12.1 L Hct 36.6 L MCV 89.7 MCH 29.7 MCHC 33.1 RDW 15.2 H Plt Count 402 H MPV 8.3 Immature Gran % (Auto) 0.8 H Neut % (Auto) 70.5 Lymph % (Auto) 13.8 L [place] % (Auto) 12.7 H Eos % (Auto) 1.9 Baso % (Auto) 0.3 Lymph # (Auto) 1.49 [place] # (Auto) 1.4 H Eos # (Auto) 0.2 Baso # (Auto) 0.0 Abs Immat Gran (auto) 0.09 H Absolute Neuts (auto) 7.6 H Absolute Nucleated RBC 0.000 Nucleated RBC % 0.0 Sodium 131 L Potassium 3.1 L Chloride 100 Carbon Dioxide 25 Anion Gap 6 BUN 5 L Creatinine 0.53 L Estim Creat Clear Calc 223 Estimated GFR > 60 Glucose 136 H Calcium 7.8 L Magnesium 1.9 Total Bilirubin 0.7 AST 19 ALT 12 Alkaline Phosphatase 84 Total Protein 5.6 L Albumin 2.6 L Quality VTE Prophylaxis VTE prophylaxis: mechanical ordered Hospitalist MIPS Advance Care Plan I have confirmed that the patient's Advanced Care Plan is present, code status is documented, or surrogate decision maker is listed in patient medical record.: Yes Medication Reconciliation I have utilized all available resources to obtain, update and review the patients current medications (includes all prescriptions, OTC, herbals, cannabis, and nutritional supplements).: Yes
[2025-01-12] MEDS: HYDROcodone/acetaminophen (*CRX) 10-325 MG TABLET 1 TAB PO (08:24)
[2025-01-12] MEDS: PROPRANOLOL HCL ER 60 MG CAPSULE PO (08:24)
[2025-01-12] MEDS: DICYCLOMINE HCL 10 MG CAPSULE 20 MG PO (08:24)
[2025-01-12] MEDS: SIMETHICONE 125 MG CHEW TAB PO (08:24)
[2025-01-12] MEDS: buPROPion HCL XL (24 HR) 150 MG TABCR 300 MG PO (08:24)
[2025-01-12] MEDS: NICOTINE (*PBKC) 14 MG PATCH 1 PATCH TRANSDERM (08:25)
--- NOTE | 2025-01-12 11:10 | P.PNGS_ITS ---
Progress Note: A&P Assessment and Plan (1) Large bowel obstruction: Code(s): K56.609 - Unspecified intestinal obstruction, unspecified as to partial versus complete obstruction Status: Acute Assessment and Plan: * Secondary to descending colon mass vs inflammatory stricture. Having more abdominal pain and distention today. Bowel function has slowed. * Will make him NPO and order repeat CT scan of the abdomen/pelvis to reassess * Continue IV Zosyn (2) Mass of colon: Code(s): K63.89 - Other specified diseases of intestine Status: Acute Assessment and Plan: * Descending colon mass on CT that could be inflammatory/infectious vs malignancy * If he can improve with conservative measures and antibiotics, then he will eventually need a colonoscopy in 4-6 weeks to evaluate the stricture/mass. (3) Psoas abscess, left: Code(s): K68.12 - Psoas muscle abscess Status: Acute Assessment and Plan: * Likely secondary to bowel perforation as mentioned above. * Continue IV antibiotics * Repeat CT abdomen/pelvis today (4) Acute hypokalemia: Code(s): E87.6 - Hypokalemia Status: Acute Assessment and Plan: * Being replaced by Hospitalist, continue to trend labs and replace as needed Plan I have discussed the patient's case and plan of care with Dr. Mayfield. Subjective Subjective Date/Time Seen: 01/12/25 11:10 Patient reports: still having pain and no flatus Interval history: Patient having more abdominal pain through the night and this morning. He is not passing any gas today and has not had a bowel movement since yesterday afternoon . No nausea or vomiting. Feels more bloated today. Exam Const: General: comfortable and no acute distress GI: Inspection: distended, Pannus present, obesity and no visible herniation GI Palp: Yes Firmness to palpation present (GI) (upper abdomen is more firm but lower abdomen softer), Yes Tenderness to palpation present (GI) (diffuse), Yes Guarding due to palpation present (GI) (diffuse), No Rigid due to palpation and No Rebound tenderness present Auscultation: Hypoactive bowel sounds present Objective Data Vital Signs Vital Signs: Vital Signs - 24 hr 01/11/25 12:00 01/11/25 14:00 01/11/25 16:00 Temperature 97.9 F Pulse Rate 93 87 83 Respiratory Rate 16 Blood Pressure 126/78 Pulse Oximetry 95 Oxygen Delivery 01/11/25 20:00 01/11/25 20:00 01/11/25 20:43 Temperature 97.6 F Pulse Rate 84 80 Respiratory Rate 20 Blood Pressure 119/69 Pulse Oximetry 96 Oxygen Delivery Room Air 01/12/25 00:00 01/12/25 04:00 01/12/25 04:37 Temperature 97.6 F Pulse Rate 88 90 86 Respiratory Rate 20 Blood Pressure 118/76 Pulse Oximetry 96 Oxygen Delivery 01/12/25 08:00 01/12/25 08:24 01/12/25 08:25 Temperature Pulse Rate 83 114 H Respiratory Rate Blood Pressure Pulse Oximetry Oxygen Delivery Room Air Intake/Output Intake/Output: Intake & Output 01/09/25 01/10/25 01/11/25 01/12/25 23:59 23:59 23:59 23:59 Intake Total 4080 5050 510 Balance 4080 5050 510 Meds/Results Medications: Active Medications Generic Name Dose Route Start Last Admin Trade Name Freq PRN Reason Stop Dose Admin Acetaminophen 650 mg 01/11/25 11:35 Acetaminophen 325 Mg Tablet PO Q4H PRN Mild Pain (1-3) or Fever Hydrocodone Bitart/Acetaminophen 1 tab 01/11/25 11:35 01/11/25 20:20 Hydrocodone/Acetaminophen (*Crx) 5-325 Mg Tablet PO 1 tab Q4H PRN Administration Pain Rated 4-6 Hydrocodone Bitart/Acetaminophen 1 tab 01/11/25 11:35 01/12/25 08:24 Hydrocodone/Acetaminophen (*Crx) 10-325 Mg Tablet PO 1 tab Q6H PRN Administration Pain Rated 7-10 Bupropion HCl 300 mg 01/10/25 15:05 01/12/25 08:24 Bupropion Hcl Xl (24 Hr) 150 Mg Tabcr PO 300 mg QAM ANNE Administration Dicyclomine HCl 20 mg 01/11/25 11:36 01/12/25 08:24 Dicyclomine Hcl 10 Mg Capsule PO 01/12/25 16:00 20 mg QID PRN Administration Abdominal Cramping Piperacillin Sod/Tazobactam 50 mls @ 100 mls/hr 01/10/25 06:00 01/12/25 05:44 Sod 3.375 gm/ Sodium Chloride IVPB Infused Q6HR ANNE Infusion Sodium Chloride 1,000 mls @ 125 mls/hr 01/10/25 01:10 01/11/25 17:32 Normal Saline Iv IV CONT 60 mls/hr .Q8H ANNE Administration Ketorolac Tromethamine 30 mg 01/11/25 13:56 01/11/25 17:33 Ketorolac 30 Mg/Ml Vial (*Bkc) IV PUSH 30 mg Q6H PRN Administration Pain Rated 4-6 Lorazepam 1 mg 01/10/25 15:04 Lorazepam (*Crx) 1 Mg Tablet PO DAILY PRN Anxiety Morphine Sulfate 4 mg 01/10/25 01:10 01/10/25 14:33 Morphine Sulfate (*Crx) 4 Mg/Ml Inj IV PUSH 4 mg Q2H PRN Administration Pain Rated 7-10 Nicotine 1 patch 01/10/25 14:05 01/12/25 08:25 Nicotine (*Pbkc) 14 Mg Patch TRANSDERM 1 patch DAILY ANNE Administration Ondansetron HCl 4 mg 01/10/25 01:10 01/10/25 14:39 Ondansetron Inj 4 Mg/2 Ml Vial IV PUSH 4 mg Q4H PRN Administration Nausea Pantoprazole Sodium 40 mg 01/10/25 09:00 01/10/25 08:06 Pantoprazole Sodium Iv 40 Mg Vial IV PUSH 40 mg On Hold: 01/11/25 05:47 QAM ANNE Administration Potassium Chloride 20 meq 01/12/25 18:00 Potassium Chloride 20 Meq Er Tablet PO 01/12/25 18:01 ONCE ONE Propranolol HCl 60 mg 01/10/25 09:00 01/12/25 08:24 Propranolol Hcl Er 60 Mg Capsule PO 60 mg DAILY ANNE Administration Quetiapine Fumarate 50 mg 01/10/25 21:00 01/10/25 21:50 Quetiapine Fumarate 25 Mg Tablet PO 50 mg On Hold: 01/11/25 05:45 QHS ANNE Administration Simethicone 125 mg 01/11/25 13:00 01/12/25 08:24 Simethicone 125 Mg Chew Tab PO 125 mg QID ANNE Administration Radiology Results: ITS Impressions Chest CTA 01/10/25 07:31 IMPRESSION: 1. No pulmonary embolus. Sensitivity is mildly decreased by motion artifact. 2. Distended colon, consistent with distal obstruction. Abdomen/Pelvis CT 01/10/25 08:01 IMPRESSION: 1. Mass of the descending colon, which may be malignancy or diverticulitis with microperforation and abscess involving the adjacent left psoas muscle. 2. Bowel obstruction from the descending colon mass. 3. Mild mesenteric lymphadenopathy which may be reactive or metastatic disease. Labs Labs: Laboratory Results - last 24 hr 01/11/25 01/11/25 01/11/25 13:50 20:23 20:23 WBC RBC Hgb Hct MCV MCH MCHC RDW Plt Count MPV Immature Gran % (Auto) Neut % (Auto) Lymph % (Auto) [place] % (Auto) Eos % (Auto) Baso % (Auto) Lymph # (Auto) [place] # (Auto) Eos # (Auto) Baso # (Auto) Abs Immat Gran (auto) Absolute Neuts (auto) Absolute Nucleated RBC Nucleated RBC % Sodium 132 L 133 L Potassium 3.1 L 3.6 Chloride 99 101 Carbon Dioxide 27 29 Anion Gap 6 3 L BUN 4 L 4 L Creatinine 0.47 L 0.50 L Estim Creat Clear Calc 248 235 Estimated GFR > 60 > 60 Glucose 126 H 99 Calcium 7.8 L 7.7 L Magnesium 1.9 2.0 Cancelled Total Bilirubin AST ALT Alkaline Phosphatase Total Protein Albumin 01/12/25 04:01 WBC 10.8 H RBC 4.08 L Hgb 12.1 L Hct 36.6 L MCV 89.7 MCH 29.7 MCHC 33.1 RDW 15.2 H Plt Count 402 H MPV 8.3 Immature Gran % (Auto) 0.8 H Neut % (Auto) 70.5 Lymph % (Auto) 13.8 L [place] % (Auto) 12.7 H Eos % (Auto) 1.9 Baso % (Auto) 0.3 Lymph # (Auto) 1.49 [place] # (Auto) 1.4 H Eos # (Auto) 0.2 Baso # (Auto) 0.0 Abs Immat Gran (auto) 0.09 H Absolute Neuts (auto) 7.6 H Absolute Nucleated RBC 0.000 Nucleated RBC % 0.0 Sodium 131 L Potassium 3.1 L Chloride 100 Carbon Dioxide 25 Anion Gap 6 BUN 5 L Creatinine 0.53 L Estim Creat Clear Calc 223 Estimated GFR > 60 Glucose 136 H Calcium 7.8 L Magnesium 1.9 Total Bilirubin 0.7 AST 19 ALT 12 Alkaline Phosphatase 84 Total Protein 5.6 L Albumin 2.6 L
[2025-01-12] MEDS: HYDROmorphone HCL INJ (*CRX) 1 MG/ML SYR IV PUSH (15:05)
[2025-01-12] MEDS: POTASSIUM CHLORIDE INJ 40 MEQ in SODIUM CHLORIDE 0.9% IV 500 ML 130 MEQ IVPB (15:52)
[2025-01-12] MEDS: KETOROLAC 30 MG/ML VIAL (*BKC) IV PUSH (20:01)
[2025-01-13] VITALS (10 sets, daily range): BP systolic 120–127; BP diastolic 70–97; PULSE 89–105; RESP 16–102; TEMP 36.4–36.6; O2SAT 90–94
[2025-01-13] MEDS: PIPERACILLIN/TAZOBACTAM SOD 3.375 GM in SODIUM CHLORIDE 0.9% IV 50 ML 100 ML IVPB ×4 (00:40→17:20)
[2025-01-13] MEDS: SODIUM CHLORIDE 0.9% IV 1,000 ML 125 ML IV CONT ×2 (00:40→22:30)
[2025-01-13] MEDS: HYDROmorphone HCL INJ (*CRX) 1 MG/ML SYR IV PUSH ×7 (00:44→22:01)
[2025-01-13 05:50] LABS: Hematocrit 38.8 % (42.0-52.0); Hemoglobin 12.7 g/dL (14.0-18.0); Immature Granulocyte Percent A 0.8 % (0-0.5); Lymphocytes Absolute Auto 1.76 K/mm3 (0.9-3.2); Mean Corpuscular HGB Conc 32.7 g/dl (32-36); Mean Corpuscular Hemoglobin 29.5 pg (26-34); Mean Corpuscular Volume 90.2 fl (80-100); Nucleated Red Blood Cells Absolute Auto 0.000 K/mm3 (0.0-0.012); Nucleated Red Blood Cells Perc 0.0 % (0.0-0.2); Platelet Count Result 450 k/mm3 (150-375); Red Blood Count 4.30 M/mm3 (4.6-6.20); White Blood Count 9.6 K/mm3 (4.5-10.0)
[2025-01-13 06:16] LABS: Alanine Aminotransferase 9 U/L (6-50); Albumin Level 2.9 g/dL (3.5-5.1); Alkaline Phosphatase 96 U/L (38-126); Anion Gap 6 mmol/L (4-12); Aspartate Amino Transferase 32 U/L (17-59); Bilirubin,Total 0.9 mg/dL (0.2-1.3); Blood Urea Nitrogen 6 mg/dL (9-20); Calcium 8.4 mg/dL (8.4-10.2); Carbon Dioxide 29 mmol/L (22-30); Chloride 101 mmol/L (98-107); Estimated CRCL calculation 209 ml/min; Estimated Glomerular Filt Rate > 60; Glucose 81 mg/dL (65-110); Magnesium 2.1 mg/dL (1.6-2.3); Potassium 3.5 mmol/L (3.4-5.0); Sodium 136 mmol/L (137-145); Total Protein 6.1 g/dL (6.3-8.2)
[2025-01-13 06:48] LABS: Platelet Count Result 430 k/mm3 (150-375)
[2025-01-13 07:06] LABS: INR 1.2; Partial Thromboplastin Time 23.2 Seconds (22.3-36.8); Prothrombin Time 15.5 Seconds (11.1-14.7)
[2025-01-13] MEDS: NICOTINE (*PBKC) 14 MG PATCH 1 PATCH TRANSDERM (08:44)
--- NOTE | 2025-01-13 09:08 | P.PNIM_ITS ---
Progress Note: A&P Assessment and Plan (1) Bowel obstruction: Code(s): K56.609 - Unspecified intestinal obstruction, unspecified as to partial versus complete obstruction Status: Acute Assessment and Plan: 01/10 CT scan abdomen pelvis demonstrating large bowel obstruction due to left colonic probable neoplastic mass and left colonic perforation with retroperitoneal abscess 5.5 cm adjacent to the psoas muscle, final interpretation pending. --Surgery following appreciate recommendations --Resume IV fluids: D5@75/hr x1 bag --NPO, has an NG tube. Follow output, brown thin output -- Zofran p.r.n. -- Protonix 40 mg IV q.a.m --Continue Zosyn 3.375 g IV q.6 hours. --Increased pain today, changed morphine 4mg to dilaudid 1mg q4 prn. Also having some relief with bentyl and simethicone (2) Abdominal abscess: Status: Acute Assessment and Plan: See above (3) Tachycardia: Code(s): R00.0 - Tachycardia, unspecified Status: Acute Assessment and Plan: Patient tells me he takes propanolol which was prescribed for tachycardia. Resumed, HR up to 119 this morning --propanolol 60mg, holding with NG. change to IV metoprolol if episodes of tachycardia. (4) Acute hypokalemia: Code(s): E87.6 - Hypokalemia Status: Acute Assessment and Plan: Potassium 2.8 on admission s/p 60meq 01/09 01/10 2.8, received 40meq 01/11 2.5 80meq, repeat 3.1 80meq more. repeat 3.6 Having diarrhea today. Also repeat mag 1.7 1g Mag. 01/12 3.1 40&20meq today(total 60meq) 01/13 3.5 40meq IV (NPO with NG tube) Plan Follow BMP & Mag daily Follow diarrhea, PO intake (5) Hyponatremia: Code(s): E87.1 - Hypo-osmolality and hyponatremia Status: Acute Assessment and Plan: Sodium 133 on admission, has been 131-134. Likely due to vomiting and hypovolemia. 136 today Continue NS fluids @125 (6) Tobacco dependence: Code(s): F17.200 - Nicotine dependence, unspecified, uncomplicated Status: Acute Assessment and Plan: Pt smokes 1 ppd x >10 years Nicotine patch ordered today based on ppd status = 14mg (7) Alcohol abuse: Code(s): F10.10 - Alcohol abuse, uncomplicated Status: Acute Assessment and Plan: Patient drinks a 5th of hard liquor per day., he has never had withdrawal or seizures. No evidence of withdrawal during admissoin --Continue to monitor Plan 29 y/o hx ETOH use disorder, admitted for a bowel obstruction, possible colon neoplasm on CT. Surgery consulted, following. Drain placed to left psoas abscess 01/13. NG tube placed. Treating hypokalemia. FULL CODE SCDs. NPO NGT to LIS Normal saline and D5 water Time Spent With Patient Time: 57 minutes Subjective Date/time seen: 01/13/25 09:08 Interval history: Potassium improved, 3.5 Give 40meq IV today since NPO. NG tube was placed yesterday. Drain placed for psoas abscess today. Culture pending 01/12 x-ray showed dilated loops of small bowel, no free air Review of Systems Review of Systems: All systems reviewed & are unremarkable except as noted in HPI and below (Subjective) Exam Narrative: General - Awake and alert. No acute distress Eyes - PERRLA, EOM intact ENT - No thrush, No erythema Neck - No noticeable or palpable swelling Lymph Nodes - No lymphadenopathy Cardiovascular - RRR no m/r/g, no JVD Lungs: Clear to auscultation, No wheezing, use of accessory muscles, no crackles Skin - Skin warm and dry, no wounds or rashes Abdomen - Normal bowel sounds, abdomen soft and mildly tender Extremities - No edema, cyanosis or clubbing Musculoskeletal - 5/5 strength, normal range of motion, no swollen or erythematous joints. Neurological ? Alert and oriented x 3, CN 2-12 grossly intact. Psych: Normal mood and affect Objective Data Vital Signs Vital Signs: Vital Signs - 24 hr 01/12/25 12:00 01/12/25 14:00 01/12/25 16:00 Temperature 97.5 F L Pulse Rate 76 88 84 Respiratory Rate 16 Blood Pressure 124/88 Pulse Oximetry 97 Oxygen Delivery 01/12/25 20:00 01/12/25 20:00 01/12/25 21:15 Temperature 97.7 F Pulse Rate 87 82 Respiratory Rate 20 Blood Pressure 118/78 Pulse Oximetry 94 Oxygen Delivery Room Air 01/13/25 00:00 01/13/25 04:00 01/13/25 04:14 Temperature 97.6 F Pulse Rate 89 91 93 Respiratory Rate 20 Blood Pressure 126/85 Pulse Oximetry 94 Oxygen Delivery Intake/Output Intake/Output: Intake & Output 01/10/25 01/11/25 01/12/25 01/13/25 23:59 23:59 23:59 23:59 Intake Total 4080 5216 2444 100 Output Total 1000 Balance 4080 5216 1444 100 Meds/Results Medications: Active Medications Generic Name Dose Route Start Last Admin Trade Name Freq PRN Reason Stop Dose Admin Acetaminophen 650 mg 01/11/25 11:35 Acetaminophen 325 Mg Tablet PO Q4H PRN Mild Pain (1-3) or Fever Bupropion HCl 300 mg 01/10/25 15:05 01/13/25 08:42 Bupropion Hcl Xl (24 Hr) 150 Mg Tabcr PO Not Given QAM ANNE Hydromorphone HCl 1 mg 01/12/25 11:19 01/13/25 08:48 Hydromorphone Hcl Inj (*Crx) 1 Mg/Ml Syr IV PUSH 1 mg Q2H PRN Administration Pain Rated 7-10 Piperacillin Sod/Tazobactam 50 mls @ 100 mls/hr 01/10/25 06:00 01/13/25 06:04 Sod 3.375 gm/ Sodium Chloride IVPB Infused Q6HR ANNE Infusion Sodium Chloride 1,000 mls @ 125 mls/hr 01/10/25 01:10 01/13/25 08:53 Normal Saline Iv IV CONT Not Given .Q8H ANNE Ketorolac Tromethamine 30 mg 01/11/25 13:56 01/12/25 20:01 Ketorolac 30 Mg/Ml Vial (*Bkc) IV PUSH 30 mg Q6H PRN Administration Pain Rated 4-6 Lorazepam 1 mg 01/10/25 15:04 Lorazepam (*Crx) 1 Mg Tablet PO DAILY PRN Anxiety Nicotine 1 patch 01/10/25 14:05 01/13/25 08:44 Nicotine (*Pbkc) 14 Mg Patch TRANSDERM 1 patch DAILY ANNE Administration Ondansetron HCl 4 mg 01/10/25 01:10 01/10/25 14:39 Ondansetron Inj 4 Mg/2 Ml Vial IV PUSH 4 mg Q4H PRN Administration Nausea Pantoprazole Sodium 40 mg 01/10/25 09:00 01/10/25 08:06 Pantoprazole Sodium Iv 40 Mg Vial IV PUSH 40 mg On Hold: 01/11/25 05:47 QAM ANNE Administration Propranolol HCl 60 mg 01/10/25 09:00 01/13/25 08:42 Propranolol Hcl Er 60 Mg Capsule PO Not Given DAILY ANNE Quetiapine Fumarate 50 mg 01/10/25 21:00 01/10/25 21:50 Quetiapine Fumarate 25 Mg Tablet PO 50 mg On Hold: 01/11/25 05:45 QHS ANNE Administration Radiology Results: ITS Impressions Chest CTA 01/10/25 07:31 IMPRESSION: 1. No pulmonary embolus. Sensitivity is mildly decreased by motion artifact. 2. Distended colon, consistent with distal obstruction. Abdomen/Pelvis CT 01/12/25 13:53 IMPRESSION: 1. Stable appearance of phlegmonous change in a few small abscesses including a 5 x 2 x 2 cm left psoas abscess such with a thickened segment of descending colon which is concerning for bowel perforation the setting of diverticulitis, focal colitis or potentially malignancy. 2. Fluid filling the more proximal colon as well as multiple dilated loops of mid to distal small bowel suggesting some degree of obstruction related stricture at the site of the affected descending colon. Consider nasogastric tube decompression. 3. Diffuse hepatic steatosis. Abdomen X-Ray 01/12/25 15:46 Impression: 1. Nasogastric tube in appropriate location Labs Labs: Laboratory Results - last 24 hr 01/13/25 01/13/25 05:35 06:44 WBC 9.6 RBC 4.30 L Hgb 12.7 L Hct 38.8 L MCV 90.2 MCH 29.5 MCHC 32.7 RDW 15.5 H Plt Count 450 H 430 H MPV 8.2 7.9 Immature Gran % (Auto) 0.8 H Neut % (Auto) 64.4 Lymph % (Auto) 18.3 [place] % (Auto) 14.0 H Eos % (Auto) 1.9 Baso % (Auto) 0.6 Lymph # (Auto) 1.76 [place] # (Auto) 1.3 H Eos # (Auto) 0.2 Baso # (Auto) 0.1 Abs Immat Gran (auto) 0.08 H Absolute Neuts (auto) 6.2 Absolute Nucleated RBC 0.000 Nucleated RBC % 0.0 PT 15.5 H INR 1.2 APTT 23.2 Sodium 136 L Potassium 3.5 Chloride 101 Carbon Dioxide 29 Anion Gap 6 BUN 6 L Creatinine 0.57 L Estim Creat Clear Calc 209 Estimated GFR > 60 Glucose 81 Calcium 8.4 Magnesium 2.1 Total Bilirubin 0.9 AST 32 ALT 9 Alkaline Phosphatase 96 Total Protein 6.1 L Albumin 2.9 L Quality VTE Prophylaxis VTE prophylaxis: mechanical ordered Hospitalist [facility] Advance Care Plan I have confirmed that the patient's Advanced Care Plan is present, code status is documented, or surrogate decision maker is listed in patient medical record.: Yes Medication Reconciliation I have utilized all available resources to obtain, update and review the patients current medications (includes all prescriptions, OTC, herbals, cannabis, and nutritional supplements).: Yes
[2025-01-13] MEDS: POTASSIUM CHLORIDE INJ 40 MEQ in SODIUM CHLORIDE 0.9% IV 500 ML 130 MEQ IVPB (10:13)
--- NOTE | 2025-01-13 13:47 | P.PNAN_ITS ---
Anes - Initial Pre Proc Eval Procedure: Operation Date: 01/13/25 13:30 Proposed Procedures p Comp Tomography Guided Abscess Drain Placement - Stephen Damon MD Date/Time: 01/13/25 13:47 Surgeon: Flaca Reynolds MD Pre Op Diagnosis: Abdominal pain, retroperitoneal abscess, Patient Data Age: 29 Gender: M Height: 1.73 m Weight: 127.9 kg Last Vital Signs Temp 36.4 C 01/13/25 04:14 Pulse 101 H 01/13/25 12:00 Resp 20 01/13/25 04:14 BP 126/85 01/13/25 04:14 Pulse Ox 94 01/13/25 04:14 O2 Del Method Room Air 01/13/25 08:45 FiO2 21 01/10/25 20:10 Allergies Allergy/AdvReac Type Severity Reaction Status Date / Time banana Allergy Unknown Unknown Verified 01/10/25 04:45 Home Medications ?Medication ?Instructions ?Recorded ?Confirmed ?Type bupropion HCl 300 mg 24 hr tablet, 300 mg PO QAM #30 t abs 12/16/24 01/10/25 Rx extended release omeprazole 40 mg capsule,delayed 40 mg PO DAILY #90 ca ps 12/16/24 01/10/25 Rx release propranolol 60 mg capsule,24 60 mg PO DAILY #30 caps 0 12/16/24 01/10/25 Rx hr,extended release quetiapine 50 mg tablet 50 mg PO QHS #30 tabs 01/10/25 Rx lorazepam 1 mg tablet 1 mg PO DAILY PRN anxiety #3 0 tabs 12/21/24 01/10/25 Rx Laboratory Tests 01/13/25 01/13/25 05:35 06:44 WBC 9.6 K/mm3 (4.5-10.0) RBC 4.30 L M/mm3 (4.6-6.20) Hgb 12.7 L g/dL (14.0-18.0) Hct 38.8 L % (42.0-52.0) MCV 90.2 fl (80-100) MCH 29.5 pg (26-34) MCHC 32.7 g/dl (32-36) RDW 15.5 H % (11.5-14.5) Plt Count 450 H k/mm3 430 H k/mm3 (150-375) (150-375) MPV 8.2 fl 7.9 fl (7.4-10.4) (7.4-10.4) Immature Gran % (Auto) 0.8 H % (0-0.5) Neut % (Auto) 64.4 % (45.5-73.1) Lymph % (Auto) 18.3 % (18.3-44.2) [place] % (Auto) 14.0 H % (2.6-8.5) Eos % (Auto) 1.9 % (0-4.4) Baso % (Auto) 0.6 % (0.2-1.2) Lymph # (Auto) 1.76 K/mm3 (0.9-3.2) [place] # (Auto) 1.3 H K/mm3 (0.1-0.6) Eos # (Auto) 0.2 K/mm3 (0-0.3) Baso # (Auto) 0.1 K/mm3 (0.0-0.1) Abs Immat Gran (auto) 0.08 H K/mm3 (0.00-0.031) Absolute Neuts (auto) 6.2 K/mm3 (1.3-6.7) Absolute Nucleated RBC 0.000 K/mm3 (0.0-0.012) Nucleated RBC % 0.0 % (0.0-0.2) PT 15.5 H Seconds (11.1-14.7) INR 1.2 APTT 23.2 Seconds (22.3-36.8) Sodium 136 L mmol/L (137-145) Potassium 3.5 mmol/L (3.4-5.0) Chloride 101 mmol/L (98-107) Carbon Dioxide 29 mmol/L (22-30) Anion Gap 6 mmol/L (4-12) BUN 6 L mg/dL (9-20) Creatinine 0.57 L mg/dL (0.7-1.3) Estim Creat Clear Calc 209 ml/min Estimated GFR > 60 (59 - ) Glucose 81 mg/dL (65-110) Calcium 8.4 mg/dL (8.4-10.2) Magnesium 2.1 mg/dL (1.6-2.3) Total Bilirubin 0.9 mg/dL (0.2-1.3) AST 32 U/L (17-59) ALT 9 U/L (6-50) Alkaline Phosphatase 96 U/L (38-126) Total Protein 6.1 L g/dL (6.3-8.2) Albumin 2.9 L g/dL (3.5-5.1) Patient hx anesthesia problems: none Family hx anesthesia problems: none Results Review: All pre-operative results and documents have been reviewed as part of the pre- operative evaluation. FOR[facility]LY [facility] Past Medical History Medical History Morbid obesity Elevated liver enzymes Anxiety with depression Surgical History Surgical History History of hip surgery Family History Family History Father No problems noted. Mother No problems noted. Sibling No problems noted. Social History Social History Smoking packs per day: 1 Smoking cigarettes per day: 20.0 Smoking status: Current every day smoker Tobacco type: cigarettes Second hand tobacco smoke exposure: Yes Alcohol intake: current Drinks per week: 30 Alcohol use details: patient drinks whiskey Substance use: never Substance use type: does not use Other substance usage details: FIFTH OF HARD LIQUIOR DAILY Do You Feel Safe in your Home?: Yes Lack of Transportation: No Lack of Food: Never True Current Housing: I Have Housing Concerned About Future Housing: No Difficulty Paying Gas/Electric Bills: No Difficulty Paying for Meds: No Currently Unemployed: No Education: High School Diploma/GED Difficulty w/ Childcare or Family Care: No Living arrangements: with family Occupation/Education: occupation Additional occupation/education comments: [employer] Gender identity (if verbalized by the patient): Male Spiritual care concerns: No Anes - Eval Final PreProcedure Day of Procedure 01/13/25 13:47 Patient weight: morbidly obese Heart: regular rate and rhythm Lungs: clear to auscultation Airway: Mallampati scale class II Neurological: alert and oriented Last oral intake: >/= 8 hours ASA classification: IV Emergent: no Anesthetic plan: proceed Anesthesia type and monitoring: monitored anesthesia care Results Review: All pre-operative results and documents have been reviewed as part of the pre- operative evaluation. Informed Consent: The patient's anesthetic plan and its attendant risks and benefits were discussed with the patient/family/POA. Questions were solicited and answers provided to the satisfaction of the patient/family/POA.
[2025-01-13] MEDS: LORazepam (*CRX) 1 MG TABLET PO (20:41)
[2025-01-14] VITALS (9 sets, daily range): BP systolic 116–123; BP diastolic 72–85; PULSE 101–118; RESP 18–20; TEMP 36.4–37.2; O2SAT 91–93
[2025-01-14] MEDS: HYDROmorphone HCL INJ (*CRX) 1 MG/ML SYR IV PUSH ×5 (00:06→08:18)
[2025-01-14] MEDS: PIPERACILLIN/TAZOBACTAM SOD 3.375 GM in SODIUM CHLORIDE 0.9% IV 50 ML 100 ML IVPB ×5 (00:06→23:45)
[2025-01-14 05:08] LABS: Hematocrit 39.1 % (42.0-52.0); Hemoglobin 12.5 g/dL (14.0-18.0); Immature Granulocyte Percent A 1.4 % (0-0.5); Lymphocytes Absolute Auto 2.08 K/mm3 (0.9-3.2); Mean Corpuscular HGB Conc 32.0 g/dl (32-36); Mean Corpuscular Hemoglobin 29.2 pg (26-34); Mean Corpuscular Volume 91.4 fl (80-100); Nucleated Red Blood Cells Absolute Auto 0.000 K/mm3 (0.0-0.012); Nucleated Red Blood Cells Perc 0.0 % (0.0-0.2); Platelet Count Result 540 k/mm3 (150-375); Red Blood Count 4.28 M/mm3 (4.6-6.20); White Blood Count 8.4 K/mm3 (4.5-10.0)
[2025-01-14 05:41] LABS: Alanine Aminotransferase 10 U/L (6-50); Albumin Level 2.9 g/dL (3.5-5.1); Alkaline Phosphatase 100 U/L (38-126); Anion Gap 10 mmol/L (4-12); Aspartate Amino Transferase 31 U/L (17-59); Bilirubin,Total 0.8 mg/dL (0.2-1.3); Blood Urea Nitrogen 7 mg/dL (9-20); Calcium 8.3 mg/dL (8.4-10.2); Carbon Dioxide 27 mmol/L (22-30); Chloride 102 mmol/L (98-107); Estimated CRCL calculation 212 ml/min; Estimated Glomerular Filt Rate > 60; Glucose 67 mg/dL (65-110); Magnesium 2.0 mg/dL (1.6-2.3); Potassium 3.3 mmol/L (3.4-5.0); Sodium 139 mmol/L (137-145); Total Protein 6.1 g/dL (6.3-8.2)
--- NOTE | 2025-01-14 07:38 | PM.IMPN ---
Progress Note: A&P Assessment and Plan (1) Bowel obstruction: Code(s): K56.609 - Unspecified intestinal obstruction, unspecified as to partial versus complete obstruction Status: Acute Assessment and Plan: 01/10 CT scan abdomen pelvis demonstrating large bowel obstruction due to left colonic probable neoplastic mass and left colonic perforation with retroperitoneal abscess 5.5 cm adjacent to the psoas muscle, final interpretation pending. --Surgery following appreciate recommendations --Resume IV fluids: D5@75/hr x1 bag --NPO, has an NG tube. Follow output, brown thin output, minimal -- Zofran p.r.n. -- Protonix 40 mg IV q.a.m --Continue Zosyn 3.375 g IV q.6 hours. --Schedule tylenol, change oxycodone 5-10mg prn, Decrease dilaudid to 0.5mg q2 prn. Also having some relief with bentyl and simethicone Can add toradol if needed but would limit --Add muscle relaxer for neck pain to help limit opiates, chlorseptic spray for throat pain (2) Abdominal abscess: Status: Acute Assessment and Plan: See above (3) Tachycardia: Code(s): R00.0 - Tachycardia, unspecified Status: Acute Assessment and Plan: Patient tells me he takes propanolol which was prescribed for tachycardia. Resumed, HR up to 119 this morning --propanolol 60mg, holding with NG. change to IV metoprolol if episodes of tachycardia. (4) Acute hypokalemia: Code(s): E87.6 - Hypokalemia Status: Acute Assessment and Plan: Potassium 2.8 on admission s/p 60meq 01/09 01/10 2.8, received 40meq 01/11 2.5 80meq, repeat 3.1 80meq more. repeat 3.6 Having diarrhea today. Also repeat mag 1.7 1g Mag. 01/12 3.1 40&20meq today(total 60meq) 01/13 3.5 40meq IV (NPO with NG tube) 01/14 3.3 40meq IV Starting clear liquids Plan Follow BMP & Mag daily Follow diarrhea, PO intake (5) Hyponatremia: Code(s): E87.1 - Hypo-osmolality and hyponatremia Status: Acute Assessment and Plan: Sodium 133 on admission, has been 131-134. Likely due to vomiting and hypovolemia. 136 today Continue NS fluids @125 (6) Tobacco dependence: Code(s): F17.200 - Nicotine dependence, unspecified, uncomplicated Status: Acute Assessment and Plan: Pt smokes 1 ppd x >10 years Nicotine patch ordered today based on ppd status = 14mg (7) Alcohol abuse: Code(s): F10.10 - Alcohol abuse, uncomplicated Status: Acute Assessment and Plan: Patient drinks a 5th of hard liquor per day., he has never had withdrawal or seizures. No evidence of withdrawal during admissoin --Continue to monitor Plan 29 y/o hx ETOH use disorder, admitted for a bowel obstruction, possible colon neoplasm on CT. Surgery consulted, following. Drain placed to left psoas abscess 01/13. NG tube placed. Treating hypokalemia. FULL CODE SCDs. NPO NGT to LIS Normal saline and D5 water Subjective Date/time seen: 01/14/25 07:38 Interval history: Potassium 3.3 today, giving 50meq Drain placed for psoas abscess yesterday. Culture pending Primarily reporting neck pain from lying in bed and pain from NG tube. Not having much abdominal or flank pain. Decrease opiates. Add muscle relaxer Minimal output from NG tube Review of Systems Review of Systems: All systems reviewed & are unremarkable except as noted in HPI and below (Subjective) Exam Narrative: General - Awake and alert. No acute distress Eyes - PERRLA, EOM intact ENT - No thrush, No erythema Neck - No noticeable or palpable swelling Lymph Nodes - No lymphadenopathy Cardiovascular - RRR no m/r/g, no JVD Lungs: Clear to auscultation, No wheezing, use of accessory muscles, no crackles Skin - Skin warm and dry, no wounds or rashes Abdomen - Normal bowel sounds, abdomen soft and mildly tender Extremities - No edema, cyanosis or clubbing Musculoskeletal - 5/5 strength, normal range of motion, no swollen or erythematous joints. Neurological ? Alert and oriented x 3, CN 2-12 grossly intact. Mild decreased sensation to left neck but no weakness to either extremities Psych: Normal mood and affect Drain to left abdomen small sanguinous fluid Objective Data Vital Signs Vital Signs: Vital Signs - 24 hr 01/13/25 08:00 01/13/25 08:45 01/13/25 12:00 Temperature Pulse Rate 91 101 H Respiratory Rate Blood Pressure Pulse Oximetry Oxygen Delivery Room Air 01/13/25 14:00 01/13/25 16:00 01/13/25 19:46 Temperature 97.9 F 97.6 F Pulse Rate 105 H 102 H 100 Respiratory Rate 16 20 Blood Pressure 120/70 127/97 H Pulse Oximetry 93 90 Oxygen Delivery 01/13/25 20:00 01/13/25 20:00 01/13/25 21:34 Temperature Pulse Rate 100 102 H Respiratory Rate 102 H Blood Pressure Pulse Oximetry 93 93 Oxygen Delivery Room Air Room Air 01/14/25 00:00 01/14/25 04:00 01/14/25 04:13 Temperature 98.1 F Pulse Rate 118 H 107 H 105 H Respiratory Rate 20 Blood Pressure 123/72 Pulse Oximetry 91 Oxygen Delivery Intake/Output Intake/Output: Intake & Output 01/11/25 01/12/25 01/13/25 01/14/25 23:59 23:59 23:59 23:59 Intake Total 5216 2444 2240 490 Output Total 1000 1100 1000 Balance 5216 1444 1140 -510 Meds/Results Medications: Active Medications Generic Name Dose Route Start Last Admin Trade Name Freq PRN Reason Stop Dose Admin Acetaminophen 650 mg 01/11/25 11:35 Acetaminophen 325 Mg Tablet PO Q4H PRN Mild Pain (1-3) or Fever Bupropion HCl 300 mg 01/10/25 15:05 01/13/25 08:42 Bupropion Hcl Xl (24 Hr) 150 Mg Tabcr PO Not Given QAM ANNE Hydromorphone HCl 1 mg 01/12/25 11:19 01/14/25 06:04 Hydromorphone Hcl Inj (*Crx) 1 Mg/Ml Syr IV PUSH 1 mg Q2H PRN Administration Pain Rated 7-10 Piperacillin Sod/Tazobactam 50 mls @ 100 mls/hr 01/10/25 06:00 01/14/25 06:03 Sod 3.375 gm/ Sodium Chloride IVPB Infused Q6HR ANNE Infusion Sodium Chloride 1,000 mls @ 125 mls/hr 01/10/25 01:10 01/13/25 22:30 Normal Saline Iv IV CONT 125 mls/hr .Q8H ANNE Administration Ketorolac Tromethamine 30 mg 01/11/25 13:56 01/12/25 20:01 Ketorolac 30 Mg/Ml Vial (*Bkc) IV PUSH 30 mg Q6H PRN Administration Pain Rated 4-6 Lorazepam 1 mg 01/10/25 15:04 01/13/25 20:41 Lorazepam (*Crx) 1 Mg Tablet PO 1 mg DAILY PRN Administration Anxiety Nicotine 1 patch 01/10/25 14:05 01/13/25 08:44 Nicotine (*Pbkc) 14 Mg Patch TRANSDERM 1 patch DAILY ANNE Administration Ondansetron HCl 4 mg 01/10/25 01:10 01/10/25 14:39 Ondansetron Inj 4 Mg/2 Ml Vial IV PUSH 4 mg Q4H PRN Administration Nausea Pantoprazole Sodium 40 mg 01/10/25 09:00 01/10/25 08:06 Pantoprazole Sodium Iv 40 Mg Vial IV PUSH 40 mg On Hold: 01/11/25 05:47 QAM ANNE Administration Propranolol HCl 60 mg 01/10/25 09:00 01/13/25 08:42 Propranolol Hcl Er 60 Mg Capsule PO Not Given DAILY ANNE Quetiapine Fumarate 50 mg 01/10/25 21:00 01/10/25 21:50 Quetiapine Fumarate 25 Mg Tablet PO 50 mg On Hold: 01/11/25 05:45 QHS ANNE Administration Radiology Results: ITS Impressions Chest CTA 01/10/25 07:31 IMPRESSION: 1. No pulmonary embolus. Sensitivity is mildly decreased by motion artifact. 2. Distended colon, consistent with distal obstruction. Abdomen/Pelvis CT 01/12/25 13:53 IMPRESSION: 1. Stable appearance of phlegmonous change in a few small abscesses including a 5 x 2 x 2 cm left psoas abscess such with a thickened segment of descending colon which is concerning for bowel perforation the setting of diverticulitis, focal colitis or potentially malignancy. 2. Fluid filling the more proximal colon as well as multiple dilated loops of mid to distal small bowel suggesting some degree of obstruction related stricture at the site of the affected descending colon. Consider nasogastric tube decompression. 3. Diffuse hepatic steatosis. Abdomen X-Ray 01/12/25 15:46 Impression: 1. Nasogastric tube in appropriate location Catheter Placement CT 01/13/25 17:34 IMPRESSION: 1. Successful CT-guided left psoas muscle abscess drainage catheter placement. 2. 15 mL fluid was sent for aerobic and anaerobic cultures. 3. The catheter will be managed by Dr. Mayfield. Labs Labs: Laboratory Results - last 24 hr 01/14/25 04:24 WBC 8.4 RBC 4.28 L Hgb 12.5 L Hct 39.1 L MCV 91.4 MCH 29.2 MCHC 32.0 RDW 15.7 H Plt Count 540 H MPV 8.2 Immature Gran % (Auto) 1.4 H Neut % (Auto) 58.0 Lymph % (Auto) 24.9 [place] % (Auto) 12.6 H Eos % (Auto) 2.6 Baso % (Auto) 0.5 Lymph # (Auto) 2.08 [place] # (Auto) 1.1 H Eos # (Auto) 0.2 Baso # (Auto) 0.0 Abs Immat Gran (auto) 0.12 H Absolute Neuts (auto) 4.9 Absolute Nucleated RBC 0.000 Nucleated RBC % 0.0 Sodium 139 Potassium 3.3 L Chloride 102 Carbon Dioxide 27 Anion Gap 10 BUN 7 L Creatinine 0.56 L Estim Creat Clear Calc 212 Estimated GFR > 60 Glucose 67 Calcium 8.3 L Magnesium 2.0 Total Bilirubin 0.8 AST 31 ALT 10 Alkaline Phosphatase 100 Total Protein 6.1 L Albumin 2.9 L Quality VTE Prophylaxis VTE prophylaxis: mechanical ordered
[2025-01-14] MEDS: SODIUM CHLORIDE 0.9% IV 1,000 ML 125 ML IV CONT (08:18)
[2025-01-14] MEDS: POTASSIUM CHLORIDE INJ 40 MEQ in SODIUM CHLORIDE 0.9% IV 500 ML 130 MEQ IVPB (08:18)
[2025-01-14] MEDS: NICOTINE (*PBKC) 14 MG PATCH 1 PATCH TRANSDERM (08:19)
--- NOTE | 2025-01-14 13:43 | P.PNGS_ITS ---
Progress Note: A&P Assessment and Plan (1) Large bowel obstruction: Code(s): K56.609 - Unspecified intestinal obstruction, unspecified as to partial versus complete obstruction Status: Acute Assessment and Plan: * Doing well after percutaneous drainage of abscess 01/13/25. * Remove NG and start clear liquids * Continue Zosyn (2) Psoas abscess, left: Code(s): K68.12 - Psoas muscle abscess Status: Acute (3) Morbid obesity with body mass index (BMI) of 40.0 to 49.9: Code(s): E66.01 - Morbid (severe) obesity due to excess calories Status: Acute (4) Tobacco dependence: Code(s): F17.200 - Nicotine dependence, unspecified, uncomplicated Status: Acute Subjective Subjective Date/Time Seen: 01/14/25 13:43 Interval history: Pain improving. Passing flatus. Fairly clear output from NG likely related to ice chips. No fevers. Exam GI: Inspection: non-distended, obesity and other (drain with minimal bloody output) GI Palp: Yes Soft to palpation, No Tenderness to palpation present (GI) and No Guarding due to palpation present (GI) Auscultation: normal bowel sounds Objective Data Vital Signs Vital Signs: Vital Signs - 24 hr 01/13/25 14:00 01/13/25 16:00 01/13/25 19:46 Temperature 97.9 F 97.6 F Pulse Rate 105 H 102 H 100 Respiratory Rate 16 20 Blood Pressure 120/70 127/97 H Pulse Oximetry 93 90 Oxygen Delivery 01/13/25 20:00 01/13/25 20:00 01/13/25 21:34 Temperature Pulse Rate 100 102 H Respiratory Rate 102 H Blood Pressure Pulse Oximetry 93 93 Oxygen Delivery Room Air Room Air 01/14/25 00:00 01/14/25 04:00 01/14/25 04:13 Temperature 98.1 F Pulse Rate 118 H 107 H 105 H Respiratory Rate 20 Blood Pressure 123/72 Pulse Oximetry 91 Oxygen Delivery 01/14/25 08:00 01/14/25 08:20 01/14/25 12:00 Temperature Pulse Rate 102 H 104 H Respiratory Rate Blood Pressure Pulse Oximetry Oxygen Delivery Room Air Intake/Output Intake/Output: Intake & Output 01/11/25 01/12/25 01/13/25 01/14/25 23:59 23:59 23:59 23:59 Intake Total 5216 2444 2240 2080.8 Output Total 1000 1100 1000 Balance 5216 1444 1140 1080.8 Meds/Results Medications: Active Medications Generic Name Dose Route Start Last Admin Trade Name Freq PRN Reason Stop Dose Admin Acetaminophen 650 mg 01/11/25 11:35 Acetaminophen 325 Mg Tablet PO Q4H PRN Mild Pain (1-3) or Fever Bupropion HCl 300 mg 01/10/25 15:05 01/14/25 08:19 Bupropion Hcl Xl (24 Hr) 150 Mg Tabcr PO Not Given QAM ANNE Hydromorphone HCl 1 mg 01/12/25 11:19 01/14/25 08:18 Hydromorphone Hcl Inj (*Crx) 1 Mg/Ml Syr IV PUSH 1 mg Q2H PRN Administration Pain Rated 7-10 Piperacillin Sod/Tazobactam 50 mls @ 100 mls/hr 01/10/25 06:00 01/14/25 13:09 Sod 3.375 gm/ Sodium Chloride IVPB Infused Q6HR ANNE Infusion Ketorolac Tromethamine 30 mg 01/11/25 13:56 01/12/25 20:01 Ketorolac 30 Mg/Ml Vial (*Bkc) IV PUSH 30 mg Q6H PRN Administration Pain Rated 4-6 Lorazepam 1 mg 01/10/25 15:04 01/13/25 20:41 Lorazepam (*Crx) 1 Mg Tablet PO 1 mg DAILY PRN Administration Anxiety Nicotine 1 patch 01/10/25 14:05 01/14/25 08:19 Nicotine (*Pbkc) 14 Mg Patch TRANSDERM 1 patch DAILY ANNE Administration Ondansetron HCl 4 mg 01/10/25 01:10 01/10/25 14:39 Ondansetron Inj 4 Mg/2 Ml Vial IV PUSH 4 mg Q4H PRN Administration Nausea Pantoprazole Sodium 40 mg 01/10/25 09:00 01/10/25 08:06 Pantoprazole Sodium Iv 40 Mg Vial IV PUSH 40 mg On Hold: 01/11/25 05:47 QAM ANNE Administration Propranolol HCl 60 mg 01/10/25 09:00 01/14/25 08:19 Propranolol Hcl Er 60 Mg Capsule PO Not Given DAILY ANNE Quetiapine Fumarate 50 mg 01/10/25 21:00 01/10/25 21:50 Quetiapine Fumarate 25 Mg Tablet PO 50 mg On Hold: 01/11/25 05:45 QHS ANNE Administration Radiology Results: ITS Impressions Chest CTA 01/10/25 07:31 IMPRESSION: 1. No pulmonary embolus. Sensitivity is mildly decreased by motion artifact. 2. Distended colon, consistent with distal obstruction. Abdomen/Pelvis CT 01/12/25 13:53 IMPRESSION: 1. Stable appearance of phlegmonous change in a few small abscesses including a 5 x 2 x 2 cm left psoas abscess such with a thickened segment of descending colon which is concerning for bowel perforation the setting of diverticulitis, focal colitis or potentially malignancy. 2. Fluid filling the more proximal colon as well as multiple dilated loops of mid to distal small bowel suggesting some degree of obstruction related stricture at the site of the affected descending colon. Consider nasogastric tube decompression. 3. Diffuse hepatic steatosis. Abdomen X-Ray 01/12/25 15:46 Impression: 1. Nasogastric tube in appropriate location Catheter Placement CT 01/13/25 17:34 IMPRESSION: 1. Successful CT-guided left psoas muscle abscess drainage catheter placement. 2. 15 mL fluid was sent for aerobic and anaerobic cultures. 3. The catheter will be managed by Dr. Mayfield. Labs Labs: Laboratory Results - last 24 hr 01/14/25 04:24 WBC 8.4 RBC 4.28 L Hgb 12.5 L Hct 39.1 L MCV 91.4 MCH 29.2 MCHC 32.0 RDW 15.7 H Plt Count 540 H MPV 8.2 Immature Gran % (Auto) 1.4 H Neut % (Auto) 58.0 Lymph % (Auto) 24.9 [place] % (Auto) 12.6 H Eos % (Auto) 2.6 Baso % (Auto) 0.5 Lymph # (Auto) 2.08 [place] # (Auto) 1.1 H Eos # (Auto) 0.2 Baso # (Auto) 0.0 Abs Immat Gran (auto) 0.12 H Absolute Neuts (auto) 4.9 Absolute Nucleated RBC 0.000 Nucleated RBC % 0.0 Sodium 139 Potassium 3.3 L Chloride 102 Carbon Dioxide 27 Anion Gap 10 BUN 7 L Creatinine 0.56 L Estim Creat Clear Calc 212 Estimated GFR > 60 Glucose 67 Calcium 8.3 L Magnesium 2.0 Total Bilirubin 0.8 AST 31 ALT 10 Alkaline Phosphatase 100 Total Protein 6.1 L Albumin 2.9 L
[2025-01-14] MEDS: LIDOCAINE 5% PATCH 1 PATCH TRANSDERM (15:26)
[2025-01-14] MEDS: PHENOL/SOD PHENO SPRAY CHERRY (*BKC) 1 SPRAY MUCOUS MEM (15:26)
[2025-01-14] MEDS: ACETAMINOPHEN 500 MG TABLET 1000 MG PO (17:23)
[2025-01-14] MEDS: oxyCODONE HCL (*CRX) 5 MG TAB IR PO (20:27)
[2025-01-14] MEDS: LORazepam (*CRX) 1 MG TABLET PO (20:28)
[2025-01-15] VITALS (10 sets, daily range): BP systolic 130–134; BP diastolic 84–95; PULSE 82–104; RESP 18–20; TEMP 36.4; O2SAT 94–98
[2025-01-15] MEDS: PIPERACILLIN/TAZOBACTAM SOD 3.375 GM in SODIUM CHLORIDE 0.9% IV 50 ML 100 ML IVPB ×4 (05:29→23:51)
[2025-01-15 05:30] LABS: Hematocrit 35.8 % (42.0-52.0); Hemoglobin 11.6 g/dL (14.0-18.0); Immature Granulocyte Percent A 1.4 % (0-0.5); Lymphocytes Absolute Auto 1.76 K/mm3 (0.9-3.2); Mean Corpuscular HGB Conc 32.4 g/dl (32-36); Mean Corpuscular Hemoglobin 29.3 pg (26-34); Mean Corpuscular Volume 90.4 fl (80-100); Nucleated Red Blood Cells Absolute Auto 0.000 K/mm3 (0.0-0.012); Nucleated Red Blood Cells Perc 0.0 % (0.0-0.2); Platelet Count Result 404 k/mm3 (150-375); Red Blood Count 3.96 M/mm3 (4.6-6.20); White Blood Count 8.0 K/mm3 (4.5-10.0)
[2025-01-15 05:56] LABS: Alanine Aminotransferase 7 U/L (6-50); Albumin Level 2.5 g/dL (3.5-5.1); Alkaline Phosphatase 73 U/L (38-126); Anion Gap 9 mmol/L (4-12); Aspartate Amino Transferase 20 U/L (17-59); Bilirubin,Total 0.6 mg/dL (0.2-1.3); Blood Urea Nitrogen 4 mg/dL (9-20); Calcium 7.7 mg/dL (8.4-10.2); Carbon Dioxide 27 mmol/L (22-30); Chloride 99 mmol/L (98-107); Estimated CRCL calculation 253 ml/min; Estimated Glomerular Filt Rate > 60; Glucose 83 mg/dL (65-110); Magnesium 1.7 mg/dL (1.6-2.3); Potassium 2.8 mmol/L (3.4-5.0); Sodium 135 mmol/L (137-145); Total Protein 5.5 g/dL (6.3-8.2)
[2025-01-15] MEDS: POTASSIUM CHLORIDE 20 MEQ PACKET (FOR LIQUID) 40 MEQ PO ×2 (06:50→09:10)
[2025-01-15] MEDS: MAGNESIUM SULF 2 GM/WATER 50ML 2 GM/50 ML BAG IVPB ×2 (06:50→07:10)
--- NOTE | 2025-01-15 07:11 | P.PNIM_ITS ---
Progress Note: A&P Assessment and Plan (1) Bowel obstruction: Code(s): K56.609 - Unspecified intestinal obstruction, unspecified as to partial versus complete obstruction Status: Acute Assessment and Plan: 01/10 CT scan abdomen pelvis demonstrating large bowel obstruction due to left colonic probable neoplastic mass and left colonic perforation with retroperitoneal abscess 5.5 cm adjacent to the psoas muscle. NGT now dc'd. Left psoas abscess drain placed by IR 01/13. Had an NG tube, now discontinued --Surgery following appreciate recommendations -- Zofran p.r.n, Protonix 40 mg IV q.a.m --Continue Zosyn 3.375 g IV q.6 hours (01/10-present) --01/13 Wound culture pending: GS moderate GPC, GPR Cultures pending. consider discharge with Augmentin if susceptible --Pain control: Schedule tylenol, changed oxycodone 5-10mg prn, Decreased dilaudid to 0.5mg q2 prn. Also having some relief with bentyl and simethicone. Can add toradol if needed but would limit. Added muscle relaxer for neck pain to help limit opiates, Chloraseptic spray for throat pain. 01/15 Only took on e dose of oxycodone overnight (2) Abdominal abscess: Status: Acute Assessment and Plan: See above (3) Tachycardia: Code(s): R00.0 - Tachycardia, unspecified Status: Acute Assessment and Plan: Patient tells me he takes propanolol which was prescribed for tachycardia. Resumed, HR up to 119 this morning --propanolol 60mg, resumed. was on hold with NG. (4) Acute hypokalemia: Code(s): E87.6 - Hypokalemia Status: Acute Assessment and Plan: Potassium 2.8 on admission s/p 60meq 01/09 01/10 2.8, received 40meq 01/11 2.5 80meq, repeat 3.1 80meq more. repeat 3.6 Having diarrhea today. Also repeat mag 1.7 1g Mag. 01/12 3.1 40&20meq today(total 60meq) 01/13 3.5 40meq IV (NPO with NG tube) 01/14 3.3 40meq IV Starting clear liquids 01/15 2.8 120meq, repeat 3.9 Plan Follow BMP & Mag daily Follow diarrhea, PO intake (5) Hyponatremia: Code(s): E87.1 - Hypo-osmolality and hyponatremia Status: Acute Assessment and Plan: Sodium 133 on admission, has been 131-139. Likely due to vomiting and hypovolemia. 136 today Stopped fluids (6) Tobacco dependence: Code(s): F17.200 - Nicotine dependence, unspecified, uncomplicated Status: Acute Assessment and Plan: Pt smokes 1 ppd x >10 years Nicotine patch ordered today based on ppd status = 14mg (7) Alcohol abuse: Code(s): F10.10 - Alcohol abuse, uncomplicated Status: Acute Assessment and Plan: Patient drinks a 5th of hard liquor per day., he has never had withdrawal or seizures. No evidence of withdrawal during admissoin --Continue to monitor Plan 29 y/o hx ETOH use disorder, admitted for a bowel obstruction, possible colon neoplasm on CT. Surgery consulted, following. Drain placed to left psoas abscess 01/13. NG tube placed, removed 01/13. Treating significant hypokalemia. Will continue antibiotics pending follow up with surgery, 2-3 weeks. FULL CODE SCDs. Low fiber diet Time Spent With Patient Time: 57 minutes Subjective Date/time seen: 01/15/25 08:15 Interval history: Having bowel movements, partially loose. Potassium is low, repleted and 3.9 this afternoon Hoping to go home early tomorrow because it is [birth year] birthday. Cultures from abscess are still pending, but minimal output from drain and overall improved. Potassium 2.8 gave 120 meq today and repeat potassium 3.9 Rechecking in AM Mag 1.7 1G IV Review of Systems Review of Systems: All systems reviewed & are unremarkable except as noted in HPI and below (Subjective) Exam Narrative: General - Awake and alert. No acute distress Eyes - PERRLA, EOM intact ENT - No thrush, No erythema Neck - No noticeable or palpable swelling Lymph Nodes - No lymphadenopathy Cardiovascular - RRR no m/r/g, no JVD Lungs: Clear to auscultation, No wheezing, use of accessory muscles, no crackles Skin - Skin warm and dry, no wounds or rashes Abdomen - Normal bowel sounds, abdomen soft and mildly tender Extremities - No edema, cyanosis or clubbing Musculoskeletal - 5/5 strength, normal range of motion, no swollen or er ythematous joints. Neurological ? Alert and oriented x 3, CN 2-12 grossly intact. Mild decreased sensation to left neck but no weakness to either extremities Psych: Normal mood and affect Drain to left abdomen small sanguinous fluid Objective Data Vital Signs Vital Signs: Vital Signs - 24 hr 01/14/25 08:00 01/14/25 08:20 01/14/25 12:00 Temperature Pulse Rate 102 H 104 H Respiratory Rate Blood Pressure Pulse Oximetry Oxygen Delivery Room Air 01/14/25 15:00 01/14/25 16:00 01/14/25 20:00 Temperature 97.6 F Pulse Rate 106 H 110 H Respiratory Rate 19 Blood Pressure 116/76 Pulse Oximetry 93 Oxygen Delivery Room Air 01/14/25 20:00 01/14/25 21:10 01/15/25 00:00 Temperature 98.9 F Pulse Rate 101 H 102 H 102 H Respiratory Rate 18 Blood Pressure 121/85 Pulse Oximetry 93 Oxygen Delivery 01/15/25 04:00 01/15/25 05:37 Temperature 97.6 F Pulse Rate 104 H 102 H Respiratory Rate 18 Blood Pressure 134/84 Pulse Oximetry 94 Oxygen Delivery Intake/Output Intake/Output: Intake & Output 01/12/25 01/13/25 01/14/25 01/15/25 23:59 23:59 23:59 23:59 Intake Total 2444 2240 4092.6 500 Output Total 1000 1100 1150 Balance 1444 1140 2942.6 500 Meds/Results Medications: Active Medications Generic Name Dose Route Start Last Admin Trade Name Freq PRN Reason Stop Dose Admin Acetaminophen 1,000 mg 01/14/25 17:00 01/14/25 17:23 Acetaminophen 500 Mg Tablet PO 1,000 mg TID [facility] Administration Bupropion HCl 300 mg 01/10/25 15:05 01/14/25 08:19 Bupropion Hcl Xl (24 Hr) 150 Mg Tabcr PO Not Given QAM ANNE Hydromorphone HCl 0.5 mg 01/14/25 14:40 Hydromorphone Hcl Inj (*Crx) 1 Mg/Ml Syr IV PUSH Q2H PRN Breakthrough Pain Piperacillin Sod/Tazobactam 50 mls @ 100 mls/hr 01/10/25 06:00 01/15/25 05:29 Sod 3.375 gm/ Sodium Chloride IVPB 100 mls/hr Q6HR ANNE Administration Magnesium Sulfate 2 gm in 50 mls @ 25 mls/hr 01/15/25 06:31 01/15/25 06:50 Magnesium Sulf 2 Gm/Water 50ml IVPB 01/15/25 08:30 25 mls/hr ONCE ONE Administration Potassium Chloride 40 meq/ 520 mls @ 130 mls/hr 01/15/25 09:00 Sodium Chloride IVPB 01/15/25 20:59 BID ANNE Ketorolac Tromethamine 30 mg 01/11/25 13:56 01/12/25 20:01 Ketorolac 30 Mg/Ml Vial (*Bkc) IV PUSH 30 mg Q6H PRN Administration Pain Rated 4-6 Lidocaine 1 patch 01/14/25 14:45 01/14/25 15:26 Lidocaine 5% Patch TRANSDERM 1 patch DAILY ANNE Administration Lorazepam 1 mg 01/10/25 15:04 01/14/25 20:28 Lorazepam (*Crx) 1 Mg Tablet PO 1 mg DAILY PRN Administration Anxiety Methocarbamol 500 mg 01/14/25 15:09 Methocarbamol 500 Mg Tablet PO TID PRN neck pain Nicotine 1 patch 01/10/25 14:05 01/14/25 08:19 Nicotine (*Pbkc) 14 Mg Patch TRANSDERM 1 patch DAILY ANNE Administration Ondansetron HCl 4 mg 01/10/25 01:10 01/10/25 14:39 Ondansetron Inj 4 Mg/2 Ml Vial IV PUSH 4 mg Q4H PRN Administration Nausea Oxycodone HCl 5 mg 01/14/25 14:40 01/14/25 20:27 Oxycodone Hcl (*Crx) 5 Mg Tab Ir PO 5 mg Q4H PRN Administration 1st line for moderate pain Oxycodone HCl 10 mg 01/14/25 14:40 Oxycodone Hcl (*Crx) 5 Mg Tab Ir PO Q4H PRN first line for severe pain Pantoprazole Sodium 40 mg 01/10/25 09:00 01/10/25 08:06 Pantoprazole Sodium Iv 40 Mg Vial IV PUSH 40 mg On Hold: 01/11/25 05:47 QAM ANNE Administration Phenol 1 spray 01/14/25 14:40 01/14/25 15:26 Phenol/Sod Pheno [place] (*Bkc) MUCOUS MEM 1 spray PRN PRN Administration Sore Throat Potassium Chloride 40 meq 01/15/25 09:00 Potassium Chloride 20 Meq Packet (For Liquid) PO 01/15/25 09:01 ONCE ONE Propranolol HCl 60 mg 01/10/25 09:00 01/14/25 08:19 Propranolol Hcl Er 60 Mg Capsule PO Not Given DAILY ANNE Quetiapine Fumarate 50 mg 01/10/25 21:00 01/10/25 21:50 Quetiapine Fumarate 25 Mg Tablet PO 50 mg On Hold: 01/11/25 05:45 QHS ANNE Administration Radiology Results: ITS Impressions Chest CTA 01/10/25 07:31 IMPRESSION: 1. No pulmonary embolus. Sensitivity is mildly decreased by motion artifact. 2. Distended colon, consistent with distal obstruction. Abdomen/Pelvis CT 01/12/25 13:53 IMPRESSION: 1. Stable appearance of phlegmonous change in a few small abscesses including a 5 x 2 x 2 cm left psoas abscess such with a thickened segment of descending colon which is concerning for bowel perforation the setting of diverticulitis, focal colitis or potentially malignancy. 2. Fluid filling the more proximal colon as well as multiple dilated loops of mid to distal small bowel suggesting some degree of obstruction related stricture at the site of the affected descending colon. Consider nasogastric tube decompression. 3. Diffuse hepatic steatosis. Abdomen X-Ray 01/12/25 15:46 Impression: 1. Nasogastric tube in appropriate location Catheter Placement CT 01/13/25 17:34 IMPRESSION: 1. Successful CT-guided left psoas muscle abscess drainage catheter placement. 2. 15 mL fluid was sent for aerobic and anaerobic cultures. 3. The catheter will be managed by Dr. Mayfield. Labs Labs: Laboratory Results - last 24 hr 01/15/25 05:01 WBC 8.0 RBC 3.96 L Hgb 11.6 L Hct 35.8 L MCV 90.4 MCH 29.3 MCHC 32.4 RDW 15.2 H Plt Count 404 H MPV 8.1 Immature Gran % (Auto) 1.4 H Neut % (Auto) 61.4 Lymph % (Auto) 22.0 [place] % (Auto) 12.5 H Eos % (Auto) 2.2 Baso % (Auto) 0.5 Lymph # (Auto) 1.76 [place] # (Auto) 1.0 H Eos # (Auto) 0.2 Baso # (Auto) 0.0 Abs Immat Gran (auto) 0.11 H Absolute Neuts (auto) 4.9 Absolute Nucleated RBC 0.000 Nucleated RBC % 0.0 Sodium 135 L Potassium 2.8 L* Chloride 99 Carbon Dioxide 27 Anion Gap 9 BUN 4 L Creatinine 0.46 L Estim Creat Clear Calc 253 Estimated GFR > 60 Glucose 83 Calcium 7.7 L Magnesium 1.7 Total Bilirubin 0.6 AST 20 ALT 7 Alkaline Phosphatase 73 Total Protein 5.5 L Albumin 2.5 L Quality VTE Prophylaxis VTE prophylaxis: mechanical ordered Hospitalist MIPS Advance Care Plan I have confirmed that the patient's Advanced Care Plan is present, code status is documented, or surrogate decision maker is listed in patient medical record.: Yes Medication Reconciliation I have utilized all available resources to obtain, update and review the patients current medications (includes all prescriptions, OTC, herbals, cannabis, and nutritional supplements).: Yes
[2025-01-15] MEDS: LIDOCAINE 5% PATCH 1 PATCH TRANSDERM (08:46)
[2025-01-15] MEDS: buPROPion HCL XL (24 HR) 150 MG TABCR 300 MG PO (08:46)
[2025-01-15] MEDS: ACETAMINOPHEN 500 MG TABLET 1000 MG PO ×3 (08:46→16:14)
[2025-01-15] MEDS: PROPRANOLOL HCL ER 60 MG CAPSULE PO (08:46)
[2025-01-15] MEDS: POTASSIUM CHLORIDE INJ 40 MEQ in SODIUM CHLORIDE 0.9% IV 500 ML 130 MEQ IVPB ×2 (08:51→16:14)
[2025-01-15] MEDS: NICOTINE (*PBKC) 14 MG PATCH 1 PATCH TRANSDERM (08:51)
--- NOTE | 2025-01-15 13:47 | P.PNGS_ITS ---
Progress Note: A&P Assessment and Plan (1) Large bowel obstruction: Code(s): K56.609 - Unspecified intestinal obstruction, unspecified as to partial versus complete obstruction Status: Acute Assessment and Plan: * Doing well after percutaneous drainage of abscess 01/13/25. * Advance to low fiber diet * Continue Zosyn * Possible home tomorrow (2) Psoas abscess, left: Code(s): K68.12 - Psoas muscle abscess Status: Acute (3) Morbid obesity with body mass index (BMI) of 40.0 to 49.9: Code(s): E66.01 - Morbid (severe) obesity due to excess calories Status: Acute (4) Tobacco dependence: Code(s): F17.200 - Nicotine dependence, unspecified, uncomplicated Status: Acute Subjective Subjective Date/Time Seen: 01/15/25 13:47 Interval history: Tolerating full liquids. Bowels moving. Pain controlled. Exam GI: Inspection: non-distended, obesity and other (drain with minimal bloody output) GI Palp: Yes Soft to palpation, No Tenderness to palpation present (GI) and No Guarding due to palpation present (GI) Auscultation: normal bowel sounds Objective Data Vital Signs Vital Signs: Vital Signs - 24 hr 01/14/25 15:00 01/14/25 16:00 01/14/25 20:00 Temperature 97.6 F Pulse Rate 106 H 110 H Respiratory Rate 19 Blood Pressure 116/76 Pulse Oximetry 93 Oxygen Delivery Room Air 01/14/25 20:00 01/14/25 21:10 01/15/25 00:00 Temperature 98.9 F Pulse Rate 101 H 102 H 102 H Respiratory Rate 18 Blood Pressure 121/85 Pulse Oximetry 93 Oxygen Delivery 01/15/25 04:00 01/15/25 05:37 01/15/25 08:00 Temperature 97.6 F Pulse Rate 104 H 102 H Respiratory Rate 18 Blood Pressure 134/84 Pulse Oximetry 94 Oxygen Delivery Room Air 01/15/25 08:00 01/15/25 08:46 Temperature Pulse Rate 98 102 H Respiratory Rate Blood Pressure Pulse Oximetry Oxygen Delivery Intake/Output Intake/Output: Intake & Output 01/12/25 01/13/25 01/14/25 01/15/25 23:59 23:59 23:59 23:59 Intake Total 2444 2240 4092.6 1280 Output Total 1000 1100 1150 Balance 1444 1140 2942.6 1280 Meds/Results Medications: Active Medications Generic Name Dose Route Start Last Admin Trade Name Freq PRN Reason Stop Dose Admin Acetaminophen 1,000 mg 01/14/25 17:00 01/15/25 12:19 Acetaminophen 500 Mg Tablet PO 1,000 mg TID ANNE Administration Bupropion HCl 300 mg 01/10/25 15:05 01/15/25 08:46 Bupropion Hcl Xl (24 Hr) 150 Mg Tabcr PO 300 mg QAM ANNE Administration Hydromorphone HCl 0.5 mg 01/14/25 14:40 Hydromorphone Hcl Inj (*Crx) 1 Mg/Ml Syr IV PUSH Q2H PRN Breakthrough Pain Piperacillin Sod/Tazobactam 50 mls @ 100 mls/hr 01/10/25 06:00 01/15/25 12:57 Sod 3.375 gm/ Sodium Chloride IVPB 100 mls/hr Q6HR ANNE Administration Potassium Chloride 40 meq/ 520 mls @ 130 mls/hr 01/15/25 09:00 01/15/25 12:51 Sodium Chloride IVPB 01/15/25 20:59 Infused BID ANNE Infusion Ketorolac Tromethamine 30 mg 01/11/25 13:56 01/12/25 20:01 Ketorolac 30 Mg/Ml Vial (*Bkc) IV PUSH 30 mg Q6H PRN Administration Pain Rated 4-6 Lidocaine 1 patch 01/14/25 14:45 01/15/25 08:46 Lidocaine 5% Patch TRANSDERM 1 patch DAILY ANNE Administration Lorazepam 1 mg 01/10/25 15:04 01/14/25 20:28 Lorazepam (*Crx) 1 Mg Tablet PO 1 mg DAILY PRN Administration Anxiety Methocarbamol 500 mg 01/14/25 15:09 Methocarbamol 500 Mg Tablet PO TID PRN neck pain Nicotine 1 patch 01/10/25 14:05 01/15/25 08:51 Nicotine (*Pbkc) 14 Mg Patch TRANSDERM 1 patch DAILY ANNE Administration Ondansetron HCl 4 mg 01/10/25 01:10 01/10/25 14:39 Ondansetron Inj 4 Mg/2 Ml Vial IV PUSH 4 mg Q4H PRN Administration Nausea Oxycodone HCl 5 mg 01/14/25 14:40 01/14/25 20:27 Oxycodone Hcl (*Crx) 5 Mg Tab Ir PO 5 mg Q4H PRN Administration 1st line for moderate pain Oxycodone HCl 10 mg 01/14/25 14:40 Oxycodone Hcl (*Crx) 5 Mg Tab Ir PO Q4H PRN first line for severe pain Pantoprazole Sodium 40 mg 01/10/25 09:00 01/10/25 08:06 Pantoprazole Sodium Iv 40 Mg Vial IV PUSH 40 mg On Hold: 01/11/25 05:47 QAM ANNE Administration Phenol 1 spray 01/14/25 14:40 01/14/25 15:26 Phenol/Sod Pheno [place] (*Bkc) MUCOUS MEM 1 spray PRN PRN Administration Sore Throat Propranolol HCl 60 mg 01/10/25 09:00 01/15/25 08:46 Propranolol Hcl Er 60 Mg Capsule PO 60 mg DAILY ANNE Administration Quetiapine Fumarate 50 mg 01/10/25 21:00 01/10/25 21:50 Quetiapine Fumarate 25 Mg Tablet PO 50 mg On Hold: 01/11/25 05:45 QHS ANNE Administration Radiology Results: ITS Impressions Chest CTA 01/10/25 07:31 IMPRESSION: 1. No pulmonary embolus. Sensitivity is mildly decreased by motion artifact. 2. Distended colon, consistent with distal obstruction. Abdomen/Pelvis CT 01/12/25 13:53 IMPRESSION: 1. Stable appearance of phlegmonous change in a few small abscesses including a 5 x 2 x 2 cm left psoas abscess such with a thickened segment of descending colon which is concerning for bowel perforation the setting of diverticulitis, focal colitis or potentially malignancy. 2. Fluid filling the more proximal colon as well as multiple dilated loops of mid to distal small bowel suggesting some degree of obstruction related stricture at the site of the affected descending colon. Consider nasogastric tube decompression. 3. Diffuse hepatic steatosis. Abdomen X-Ray 01/12/25 15:46 Impression: 1. Nasogastric tube in appropriate location Catheter Placement CT 01/13/25 17:34 IMPRESSION: 1. Successful CT-guided left psoas muscle abscess drainage catheter placement. 2. 15 mL fluid was sent for aerobic and anaerobic cultures. 3. The catheter will be managed by Dr. Mayfield. Labs Labs: Laboratory Results - last 24 hr 01/15/25 05:01 WBC 8.0 RBC 3.96 L Hgb 11.6 L Hct 35.8 L MCV 90.4 MCH 29.3 MCHC 32.4 RDW 15.2 H Plt Count 404 H MPV 8.1 Immature Gran % (Auto) 1.4 H Neut % (Auto) 61.4 Lymph % (Auto) 22.0 [place] % (Auto) 12.5 H Eos % (Auto) 2.2 Baso % (Auto) 0.5 Lymph # (Auto) 1.76 [place] # (Auto) 1.0 H Eos # (Auto) 0.2 Baso # (Auto) 0.0 Abs Immat Gran (auto) 0.11 H Absolute Neuts (auto) 4.9 Absolute Nucleated RBC 0.000 Nucleated RBC % 0.0 Sodium 135 L Potassium 2.8 L* Chloride 99 Carbon Dioxide 27 Anion Gap 9 BUN 4 L Creatinine 0.46 L Estim Creat Clear Calc 253 Estimated GFR > 60 Glucose 83 Calcium 7.7 L Magnesium 1.7 Total Bilirubin 0.6 AST 20 ALT 7 Alkaline Phosphatase 73 Total Protein 5.5 L Albumin 2.5 L
[2025-01-15 14:51] LABS: Anion Gap 7 mmol/L (4-12); Blood Urea Nitrogen 4 mg/dL (9-20); Calcium 8.1 mg/dL (8.4-10.2); Carbon Dioxide 29 mmol/L (22-30); Chloride 100 mmol/L (98-107); Estimated CRCL calculation 227 ml/min; Estimated Glomerular Filt Rate > 60; Glucose 124 mg/dL (65-110); Potassium 3.9 mmol/L (3.4-5.0); Sodium 136 mmol/L (137-145)
[2025-01-15] MEDS: LORazepam (*CRX) 1 MG TABLET PO (20:25)
[2025-01-15] MEDS: oxyCODONE HCL (*CRX) 5 MG TAB IR PO (20:25)
[2025-01-16] VITALS: PULSE 84
[2025-01-16 04:00] VITALS: PULSE 86
[2025-01-16 04:31] VITALS: BP 120/87; PULSE 87; RESP 20; TEMP 36.7; O2SAT 95
[2025-01-16] MEDS: PIPERACILLIN/TAZOBACTAM SOD 3.375 GM in SODIUM CHLORIDE 0.9% IV 50 ML 100 ML IVPB ×2 (05:28→12:21)
[2025-01-16 05:39] LABS: Hematocrit 40.0 % (42.0-52.0); Hemoglobin 13.0 g/dL (14.0-18.0); Immature Granulocyte Percent A 1.1 % (0-0.5); Lymphocytes Absolute Auto 1.60 K/mm3 (0.9-3.2); Mean Corpuscular HGB Conc 32.5 g/dl (32-36); Mean Corpuscular Hemoglobin 29.4 pg (26-34); Mean Corpuscular Volume 90.5 fl (80-100); Nucleated Red Blood Cells Absolute Auto 0.000 K/mm3 (0.0-0.012); Nucleated Red Blood Cells Perc 0.0 % (0.0-0.2); Platelet Count Result 434 k/mm3 (150-375); Red Blood Count 4.42 M/mm3 (4.6-6.20); White Blood Count 9.5 K/mm3 (4.5-10.0)
[2025-01-16 05:57] LABS: Alanine Aminotransferase 20 U/L (6-50); Albumin Level 2.5 g/dL (3.5-5.1); Alkaline Phosphatase 86 U/L (38-126); Anion Gap 7 mmol/L (4-12); Aspartate Amino Transferase 49 U/L (17-59); Bilirubin,Total 0.8 mg/dL (0.2-1.3); Blood Urea Nitrogen 4 mg/dL (9-20); Calcium 7.6 mg/dL (8.4-10.2); Carbon Dioxide 28 mmol/L (22-30); Chloride 99 mmol/L (98-107); Estimated CRCL calculation 233 ml/min; Estimated Glomerular Filt Rate > 60; Glucose 94 mg/dL (65-110); Magnesium 1.6 mg/dL (1.6-2.3); Potassium 3.2 mmol/L (3.4-5.0); Sodium 134 mmol/L (137-145); Total Protein 5.5 g/dL (6.3-8.2)
[2025-01-16 06:21] LABS: Smudge Cells PRESENT
[2025-01-16 06:22] LABS: Schistocytes None Seen
[2025-01-16 08:00] VITALS: PULSE 83
[2025-01-16 09:01] VITALS: PULSE 88
[2025-01-16] MEDS: ACETAMINOPHEN 500 MG TABLET 1000 MG PO ×2 (09:01→12:22)
[2025-01-16] MEDS: NICOTINE (*PBKC) 14 MG PATCH 1 PATCH TRANSDERM (09:01)
[2025-01-16] MEDS: PROPRANOLOL HCL ER 60 MG CAPSULE PO (09:01)
[2025-01-16] MEDS: buPROPion HCL XL (24 HR) 150 MG TABCR 300 MG PO (09:01)
--- NOTE | 2025-01-16 09:47 | P.PNGS_ITS ---
Progress Note: A&P Assessment and Plan (1) Large bowel obstruction: Code(s): K56.609 - Unspecified intestinal obstruction, unspecified as to partial versus complete obstruction Status: Acute Assessment and Plan: * Continues to clinically improve. No output from perc drain over the weekend. Will remove the drain this morning. * Okay to discharge on a low fiber diet and oral antibiotics. F/u with Dr. Mayfield in 2 weeks. (2) Psoas abscess, left: Code(s): K68.12 - Psoas muscle abscess Status: Acute Assessment and Plan: * Will remove drain this morning. (3) Morbid obesity with body mass index (BMI) of 40.0 to 49.9: Code(s): E66.01 - Morbid (severe) obesity due to excess calories Status: Acute (4) Tobacco dependence: Code(s): F17.200 - Nicotine dependence, unspecified, uncomplicated Status: Acute Assessment and Plan: * Encouraged cessation Plan I have discussed the patient's case and plan of care with Dr. Mayfield. Subjective Subjective Date/Time Seen: 01/16/25 09:47 Patient reports: no new complaints, feels better, pain is less, flatus, bowel movement and afebrile Interval history: Patient feeling well. His abdominal pain and bloating has improved over the weekend. He is tolerating a low fiber diet. Bowels are moving. He reports some gas pains, but very minimal. Only requiring Tylenol for this today. Perc drain with no output over the weekend. Exam Const: General: comfortable, no acute distress and obese GI: Inspection: non-distended, Pannus present, obesity and other (drain with minimal bloody output) GI Palp: Yes Soft to palpation, No Tenderness to palpation present (GI) and No Guarding due to palpation present (GI) Auscultation: normal bowel sounds Objective Data Vital Signs Vital Signs: Vital Signs - 24 hr 01/15/25 12:00 01/15/25 14:00 01/15/25 16:00 Temperature 97.6 F Pulse Rate 90 87 83 Respiratory Rate 18 Blood Pressure 130/95 H Pulse Oximetry 98 Oxygen Delivery 01/15/25 20:00 01/15/25 20:00 01/15/25 20:30 Temperature 97.5 F L Pulse Rate 82 82 Respiratory Rate 20 Blood Pressure 131/88 Pulse Oximetry 97 Oxygen Delivery Room Air 10/13/25 00:00 01/16/25 04:00 01/16/25 04:31 Temperature 98.1 F Pulse Rate 84 86 87 Respiratory Rate 20 Blood Pressure 120/87 Pulse Oximetry 95 Oxygen Delivery 01/16/25 08:00 01/16/25 09:00 01/16/25 09:01 Temperature Pulse Rate 83 88 Respiratory Rate Blood Pressure Pulse Oximetry Oxygen Delivery Room Air Intake/Output Intake/Output: Intake & Output 01/13/25 01/14/25 01/15/25 01/16/25 23:59 23:59 23:59 23:59 Intake Total 2240 4092.6 2031 220 Output Total 1100 1150 Balance 1140 2942.6 2031 220 Meds/Results Medications: Active Medications Generic Name Dose Route Start Last Admin Trade Name Freq PRN Reason Stop Dose Admin Acetaminophen 1,000 mg 01/14/25 17:00 01/16/25 09:01 Acetaminophen 500 Mg Tablet PO 1,000 mg TID ANNE Administration Bupropion HCl 300 mg 01/10/25 15:05 01/16/25 09:01 Bupropion Hcl Xl (24 Hr) 150 Mg Tabcr PO 300 mg QAM ANNE Administration Hydromorphone HCl 0.5 mg 01/14/25 14:40 Hydromorphone Hcl Inj (*Crx) 1 Mg/Ml Syr IV PUSH Q2H PRN Breakthrough Pain Piperacillin Sod/Tazobactam 50 mls @ 100 mls/hr 01/10/25 06:00 01/16/25 05:58 Sod 3.375 gm/ Sodium Chloride IVPB Infused Q6HR [facility] Infusion Ketorolac Tromethamine 30 mg 01/11/25 13:56 01/12/25 20:01 Ketorolac 30 Mg/Ml Vial (*Bkc) IV PUSH 30 mg Q6H PRN Administration Pain Rated 4-6 Lidocaine 1 patch 01/14/25 14:45 01/16/25 09:01 Lidocaine 5% Patch TRANSDERM Not Given DAILY [facility] Lorazepam 1 mg 01/10/25 15:04 01/15/25 20:25 Lorazepam (*Crx) 1 Mg Tablet PO 1 mg DAILY PRN Administration Anxiety Methocarbamol 500 mg 01/14/25 15:09 Methocarbamol 500 Mg Tablet PO TID PRN neck pain Nicotine 1 patch 01/10/25 14:05 01/16/25 09:01 Nicotine (*Pbkc) 14 Mg Patch TRANSDERM 1 patch DAILY ANNE Administration Ondansetron HCl 4 mg 01/10/25 01:10 01/10/25 14:39 Ondansetron Inj 4 Mg/2 Ml Vial IV PUSH 4 mg Q4H PRN Administration Nausea Oxycodone HCl 5 mg 01/14/25 14:40 01/15/25 20:25 Oxycodone Hcl (*Crx) 5 Mg Tab Ir PO 5 mg Q4H PRN Administration 1st line for moderate pain Oxycodone HCl 10 mg 01/14/25 14:40 Oxycodone Hcl (*Crx) 5 Mg Tab Ir PO Q4H PRN first line for severe pain Pantoprazole Sodium 40 mg 01/10/25 09:00 01/10/25 08:06 Pantoprazole Sodium Iv 40 Mg Vial IV PUSH 40 mg On Hold: 01/11/25 05:47 QAM ANNE Administration Phenol 1 spray 01/14/25 14:40 01/14/25 15:26 Phenol/Sod Pheno [place] (*Bkc) MUCOUS MEM 1 spray PRN PRN Administration Sore Throat Propranolol HCl 60 mg 01/10/25 09:00 01/16/25 09:01 Propranolol Hcl Er 60 Mg Capsule PO 60 mg DAILY ANNE Administration Quetiapine Fumarate 50 mg 01/10/25 21:00 01/10/25 21:50 Quetiapine Fumarate 25 Mg Tablet PO 50 mg On Hold: 01/11/25 05:45 QHS ANNE Administration Radiology Results: ITS Impressions Chest CTA 01/10/25 07:31 IMPRESSION: 1. No pulmonary embolus. Sensitivity is mildly decreased by motion artifact. 2. Distended colon, consistent with distal obstruction. Abdomen/Pelvis CT 01/12/25 13:53 IMPRESSION: 1. Stable appearance of phlegmonous change in a few small abscesses including a 5 x 2 x 2 cm left psoas abscess such with a thickened segment of descending colon which is concerning for bowel perforation the setting of diverticulitis, focal colitis or potentially malignancy. 2. Fluid filling the more proximal colon as well as multiple dilated loops of mid to distal small bowel suggesting some degree of obstruction related stricture at the site of the affected descending colon. Consider nasogastric tube decompression. 3. Diffuse hepatic steatosis. Abdomen X-Ray 01/12/25 15:46 Impression: 1. Nasogastric tube in appropriate location Catheter Placement CT 01/13/25 17:34 IMPRESSION: 1. Successful CT-guided left psoas muscle abscess drainage catheter placement. 2. 15 mL fluid was sent for aerobic and anaerobic cultures. 3. The catheter will be managed by Dr. Mayfield. Labs Labs: Laboratory Results - last 24 hr 01/15/25 01/16/25 14:32 05:23 WBC 9.5 RBC 4.42 L Hgb 13.0 L Hct 40.0 L MCV 90.5 MCH 29.4 MCHC 32.5 RDW 15.2 H Plt Count 434 H MPV 8.2 Immature Gran % (Auto) 1.1 H Neut % (Auto) 66.5 Lymph % (Auto) 16.9 L Riley % (Auto) 13.2 H Eos % (Auto) 1.7 Baso % (Auto) 0.6 Lymph # (Auto) 1.60 Riley # (Auto) 1.3 H Eos # (Auto) 0.2 Baso # (Auto) 0.1 Abs Immat Gran (auto) 0.10 H Absolute Neuts (auto) 6.3 Absolute Nucleated RBC 0.000 Band Neutrophils % Not Reportable Nucleated RBC % 0.0 Atypical Lymphocytes Present Smudge Cells Present Platelet Estimate Increased Schistocytes None seen Sodium 136 L 134 L Potassium 3.9 3.2 L Chloride 100 99 Carbon Dioxide 29 28 Anion Gap 7 7 BUN 4 L 4 L Creatinine 0.52 L 0.50 L Estim Creat Clear Calc 227 233 Estimated GFR > 60 > 60 Glucose 124 H 94 Calcium 8.1 L 7.6 L Magnesium 1.6 Total Bilirubin 0.8 AST 49 ALT 20 Alkaline Phosphatase 86 Total Protein 5.5 L Albumin 2.5 L
[2025-01-16 12:00] VITALS: PULSE 91
--- NOTE | 2025-01-16 12:07 | P.DS_ITS ---
DS: Admitting Diagnosis Discharge Date 01/16/25 Admitting Diagnosis large bowel obstruction DS: Discharge Diagnosis Discharge Diagnosis (1) Bowel obstruction: Code(s): K56.609 - Unspecified intestinal obstruction, unspecified as to partial versus complete obstruction Status: Acute Assessment and Plan: 01/10 CT scan abdomen pelvis demonstrating large bowel obstruction due to left colonic probable neoplastic mass and left colonic perforation with retroperitoneal abscess 5.5 cm adjacent to the psoas muscle. NGT now dc'd. Left psoas abscess drain placed by IR 01/13. Had an NG tube, now discontinued --Surgery following appreciate recommendations -- Zofran p.r.n, Protonix 40 mg IV q.a.m --Continue Zosyn 3.375 g IV q.6 hours (01/10-present) --01/13 Wound culture pending: GS moderate GPC, GPR Cultures pending. consider discharge with Augmentin if susceptible --Pain control: Schedule tylenol, changed oxycodone 5-10mg prn, Decreased dilaudid to 0.5mg q2 prn. Also having some relief with bentyl and simethicone. Can add toradol if needed but would limit. Added muscle relaxer for neck pain to help limit opiates, Chloraseptic spray for throat pain. 01/15 Only took on e dose of oxycodone overnight (2) Abdominal abscess: Status: Acute Assessment and Plan: See above (3) Tachycardia: Code(s): R00.0 - Tachycardia, unspecified Status: Acute Assessment and Plan: Patient tells me he takes propanolol which was prescribed for tachycardia. (4) Acute hypokalemia: Code(s): E87.6 - Hypokalemia Status: Acute Assessment and Plan: Potassium 2.8 on admission s/p 60meq 01/09 01/10 2.8, received 40meq 01/11 2.5 80meq, repeat 3.1 80meq more. repeat 3.6 Having diarrhea today. Also repeat mag 1.7 1g Mag. 01/12 3.1 40&20meq today(total 60meq) 01/13 3.5 40meq IV (NPO with NG tube) 01/14 3.3 40meq IV Starting clear liquids 01/15 2.8 120meq, repeat 3.9 Plan Follow BMP & Mag daily Follow diarrhea, PO intake (5) Hyponatremia: Code(s): E87.1 - Hypo-osmolality and hyponatremia Status: Acute Assessment and Plan: Resolved (6) Tobacco dependence: Code(s): F17.200 - Nicotine dependence, unspecified, uncomplicated Status: Acute Assessment and Plan: Pt smokes 1 ppd x >10 years Nicotine patch ordered today based on ppd status = 14mg (7) Alcohol abuse: Code(s): F10.10 - Alcohol abuse, uncomplicated Status: Acute Assessment and Plan: Patient drinks a 5th of hard liquor per day., he has never had withdrawal or seizures. No evidence of withdrawal during admissoin --Continue to monitor Plan 29 y/o hx ETOH use disorder, admitted for a bowel obstruction, possible colon neoplasm on CT. Surgery consulted, following. Drain placed to left psoas abscess 01/13. NG tube placed, removed 01/13. Treating significant hypokalemia. Will continue antibiotics pending follow up with surgery, 2-3 weeks. FULL CODE SCDs. Low fiber diet DS: Summary Hospital Course Hospital Course: This is a 30-year-old male that was admitted to the hospital on 01/10/2025 for a large bowel obstruction. CT scan of the abdomen pelvis showed a large bowel obstruction due to left clonic palpable neoplastic mass and left colonic perforation with retroperitoneal abscess 5.5 cm adjacent to the psoas muscle. Surgery was consulted on the case. Patient was started on Zosyn q.6 hours for abscess. Patient had NG to placed in order to decompress the bowel. He also had a percutaneous drainage of the abscess on 01/13/2025. The NG tube was removed on 01/14/2025. Perc drain was removed on 01/16/2025 after the volume of drainage had decreased/stop draining. Once NG tube was removed patient's diet was slowly restarted. At discharge is recommended that he have a low-fiber diet. He was able to have regular bowel movements and flat us after bowel decompression. After drain was removed patient discharged home on oral antibiotics and follow up with surgery in 2 weeks. Time Spent with Patient Time attestation: Total time spent providing and/or coordinating discharge services: DS: Data Data Completed and Pending Labs on day of discharge: Labs from last 24 hours 01/16/25 01/15/25 05:23 14:32 WBC 9.5 RBC 4.42 L Hgb 13.0 L Hct 40.0 L MCV 90.5 MCH 29.4 MCHC 32.5 RDW 15.2 H Plt Count 434 H MPV 8.2 Immature Gran % (Auto) 1.1 H Neut % (Auto) 66.5 Lymph % (Auto) 16.9 L Adams % (Auto) 13.2 H Eos % (Auto) 1.7 Baso % (Auto) 0.6 Lymph # (Auto) 1.60 Adams # (Auto) 1.3 H Eos # (Auto) 0.2 Baso # (Auto) 0.1 Abs Immat Gran (auto) 0.10 H Absolute Neuts (auto) 6.3 Absolute Nucleated RBC 0.000 Band Neutrophils % Not Reportable Nucleated RBC % 0.0 Atypical Lymphocytes Present Smudge Cells Present Platelet Estimate Increased Schistocytes None seen Sodium 134 L 136 L Potassium 3.2 L 3.9 Chloride 99 100 Carbon Dioxide 28 29 Anion Gap 7 7 BUN 4 L 4 L Creatinine 0.50 L 0.52 L Estim Creat Clear Calc 233 227 Estimated GFR > 60 > 60 Glucose 94 124 H Calcium 7.6 L 8.1 L Magnesium 1.6 Total Bilirubin 0.8 AST 49 ALT 20 Alkaline Phosphatase 86 Total Protein 5.5 L Albumin 2.5 L Preliminary micro results at discharge 01/10/25 02:39 Blood Culture - Preliminary Blood 01/10/25 02:39 Blood Culture - Preliminary Blood Discharge Plan Discharge Attending physician on discharge: Nakita Fishman Consulting providers: Harmony Mayfield; Selma Schwartz; Shana Orozco Discharging Clinician: Nakita Fishman Patient Disposition: Home Activity: as tolerated and other - see discharge instructions Diet: low fiber Wound Care Instructions: other - see discharge instructions Discharge Instructions: General surgery instructions: * May shower and remove dressing where drain was located tomorrow (01/17/25). You may wash over this area with mild soap and water and apply a gauze dressing daily for the next 3-4 days or until this area is dry. 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 You may NOT drink alcohol while taking these medications. * Continue a low fiber diet until instructed differently by your surgeon * Follow-up with Dr. Mayfield in 2 weeks. Call to schedule the appointment. * If you develop abdominal pain, vomiting, or fevers, then call sooner or return to the ED. Discharge disposition: Released to return to work on 01/23/25. Take medications as prescribed Monitor blood pressures Avoid social areas, you wear a mask when in social settings Encouraged to continue with yearly vaccinations Return to the emergency department if he developed sudden shortness of breath, chest pain, nausea, vomiting, upset stomach or intractable diarrhea Return to the emergency department if you develop fever greater than 100.4 Follow-up with the primary care physician within 1-2 weeks Thank you for choosing [facility] for your healthcare needs Patient Instructions: Antibiotic Form, How to Stop Smoking (GEN), Low Fiber Diet (DC) Patient Language: Danish Stand Alone Forms: General Discharge Information, Work/School Release IP Follow-up/Referrals: Harmony Mayfield MD [Physician, General Surgery] - 2 Weeks Discharge Medications: New amoxicillin-pot clavulanate 875-125 mg tablet 1 tablet PO Q12H Qty: 20 0RF metronidazole 500 mg tablet 500 mg PO Q8H 10 Days Qty: 30 0RF Continued omeprazole 40 mg capsule,delayed release(DR/EC) 40 mg PO DAILY Qty: 90 0RF bupropion HCl 300 mg tablet extended release 24 hr 300 mg PO QAM Qty: 30 0RF quetiapine 50 mg tablet 50 mg PO QHS Qty: 30 0RF propranolol 60 mg capsule,extended release 24 hr 60 mg PO DAILY Qty: 30 0RF lorazepam 1 mg tablet 1 mg PO DAILY PRN (Reason: anxiety) Qty: 30 0RF Date of admission: 01/10/25 07:27 Primary Care Provider: Katherine Anders Admitting Provider: Flaca Reynolds Attending physician on admission: Flaca Reynolds Condition: Stable
== END 2025-01-16 13:20 | disposition home or self-care (01) | DRG 372 ==
LOC: ANHED 01-10 01:04 → ANH2MED 01-10 03:46
PROVIDERS: Internal Medicine; Nurse Practitioner Acute Care; Nurse Practitioner Family; Radiology Diagnostic Radiology; Admitting Provider General Practice; Emergency Provider Emergency Medicine; PCP Nurse Practitioner Family; Visit Provider Internal Medicine Critical Care Medicine
PROC: 0K9P30Z Drainage of Left Hip Muscle with Drainage Device, Percutaneous Approach (ICD-10-PCS; CPT 75989; principal; 2025-01-13 13:30)
DX: K68.12 Psoas muscle abscess (principal); E87.1 Hypo-osmolality and hyponatremia; Z68.41 Body mass index [BMI] 40.0-44.9, adult; K63.9 Disease of intestine, unspecified; R00.0 Tachycardia, unspecified; E87.6 Hypokalemia; F17.210 Nicotine dependence, cigarettes, uncomplicated; F10.10 Alcohol abuse, uncomplicated; E66.01 Morbid (severe) obesity due to excess calories; K21.9 Gastro-esophageal reflux disease without esophagitis; F41.8 Other specified anxiety disorders
CPT/HCPCS: 36415; 49406; 71275; 74177; 80048; 80053; 81001; 82465; 83605; 83690; 83735; 84145; 85025; 85049; 85610; 85730; 87040; 87070; 87075; 87186; 87205; 93005; 96361; 96365; 96366; 99285; A9270; C1729; C1769; G0378; J1171; J1885; J2250; J2270; J2405; J2470; J2543; J3010; J3475; J3480; J7030; J7040; J7042; J7070; Q9967

== ENCOUNTER 2025-01-22 20:59 | Inpatient (IN) | payer OTHER, SELFPAY ==
--- OUTSIDE RECORDS SUMMARY | 2003-08-03 05:45 | XMS_ITS | Continuity of Care Document ---
Author Organization [facility] Address [address] [place] [address] Phone Care Team Providers Care Restaurant Line Cook Name Role Phone Nayely Hale Unavailable Unavailable Advance Directives Directive Yes / No Effective Date File Name No Information Encounters Encounter Description Practice Location Reason(s) For Visit Diagnoses Date Provider Providers Copied on Encounter [facility], [id number] [place] [address] [address], [place], [place], [id number], [place] tel:[phone] [facility] No Information 9-200 4 Alexia Adler. [address] [facility] , [address], [place], [address], [place]. tel:[phone] Family History Family Member Type Diagnosis Age At Onset No Information Payers Payer name Insurance type Covered democrat ID Authoriza tion(s) Medicaid [facility] [id number] Social History Type Description Quantity Date Captured [...]
--- NOTE | ~2025-01-22 | CT_ITS ---
EXAMINATION: CT abdomen pelvis w con DATE: 01/23/2025 02:43 INDICATION: Abscess. Abdominal pain. TECHNIQUE: Computed tomography (CT) of the abdomen and pelvis was performed with 100 mL Omnipaque 350 intravenous contrast. Automated exposure control and iterative reconstruction technique were employed. The dose-length product was 1592.89 mGy-cm. COMPARISON: CT abdomen and pelvis 01/12/2025, 01/09/25 FINDINGS: The visualized portions of lung bases demonstrate mild atelectasis. No pleural effusion. The heart size is normal. No pericardial effusion. There is bilateral gynecomastia. There is diffuse hepatic steatosis. There are gallstones in the gallbladder, which is normal in size. The spleen, pancreas, adrenal glands, and kidneys are normal. There is wall thickening and stricture of the junction of the descending and sigmoid colon with surrounding fat stranding and adjacent 2.0 x 1.4 cm psoas abscess. There is a 4.2 x 0.9 x 2.1 cm abscess in the wall of the distal descending colon. The more proximal colon is distended. There are dilated loops of distal small bowel. The appendix is distended, but contains gas and demonstrates a normal-appearing wall. There are no pathologically enlarged lymph nodes. There is no free intraperitoneal fluid. There are screws in the femoral heads. There is mild chronic anterior wedging of multiple thoracic vertebral bodies. There is mild thoracic and lumbar spondy losis. IMPRESSION: 1. Wall thickening and stricture at the junction of the descending and sigmoid colon, consistent with diverticulitis versus malignancy with small abscesses and bowel obstruction. Reviewed, dictated and finalized at location E. IMPRESSION: 1. Wall thickening and stricture at the junction of the descending and sigmoid colon, consistent with diverticulitis versus malignancy with small abscesses an d bowel obstruction.
[2025-01-22 21:28] VITALS: BP 151/100; PULSE 120; RESP 17; TEMP 36.6; O2SAT 97
[2025-01-23] VITALS (23 sets, daily range): BP systolic 103–145; BP diastolic 70–96; PULSE 93–108; RESP 13–25; TEMP 36.5–36.8; O2SAT 93–100; BMI 45.6
[2025-01-23 01:25] LABS: Hematocrit 40.5 % (42.0-52.0); Hemoglobin 13.4 g/dL (14.0-18.0); Immature Granulocyte Percent A 0.6 % (0-0.5); Lymphocytes Absolute Auto 2.42 K/mm3 (0.9-3.2); Mean Corpuscular HGB Conc 33.1 g/dl (32-36); Mean Corpuscular Hemoglobin 29.2 pg (26-34); Mean Corpuscular Volume 88.2 fl (80-100); Nucleated Red Blood Cells Absolute Auto 0.000 K/mm3 (0.0-0.012); Nucleated Red Blood Cells Perc 0.0 % (0.0-0.2); Platelet Count Result 526 k/mm3 (150-375); Red Blood Count 4.59 M/mm3 (4.6-6.20); White Blood Count 11.4 K/mm3 (4.5-10.0)
[2025-01-23 01:35] LABS: Alanine Aminotransferase 23 U/L (6-50); Albumin Level 3.0 g/dL (3.5-5.1); Alkaline Phosphatase 116 U/L (38-126); Anion Gap 3 mmol/L (4-12); Aspartate Amino Transferase 28 U/L (17-59); Bilirubin,Total 1.1 mg/dL (0.2-1.3); Blood Urea Nitrogen 8 mg/dL (9-20); Calcium 8.3 mg/dL (8.4-10.2); Carbon Dioxide 30 mmol/L (22-30); Chloride 99 mmol/L (98-107); Estimated CRCL calculation 217 ml/min; Estimated Glomerular Filt Rate > 60; Glucose 107 mg/dL (65-110); Lipase 25 U/L (23-300); Potassium 3.2 mmol/L (3.4-5.0); Sodium 132 mmol/L (137-145); Total Protein 6.4 g/dL (6.3-8.2)
[2025-01-23] MEDS: MORPHINE SULFATE (*CRX) 4 MG/ML INJ IV PUSH (02:03)
[2025-01-23] MEDS: SODIUM CHLORIDE 0.9% IV 1,000 ML 999 ML IV CONT (02:03)
--- NOTE | 2025-01-23 02:07 | ED_ITS ---
HPI - Abdominal Pain General Chief Complaint: Abdominal Pain Stated Complaint: abd pain Time Seen by Provider: 01/23/25 01:12 History of Present Illness HPI narrative: 30-year-old male with complex past medical history including recent large bowel obstruction secondary to potential neoplastic mass resulting in colonic perforation and retroperitoneal abscess requiring drainage. Patient was discharged from the hospital on the chest last week. He was discharged home with antibiotics to continue based on culture results. Patient has been taking the antibiotics but having worsening abdominal pain and subjective fevers as well as leg swelling today. States that pain is worsened with movement. No chest pain shortness a breath. No headache, vision changes. No traumatic injuries. Was not able to follow-up yet and supposedly scheduled for colonoscopy on the 07 of February to evaluate for potential neoplastic process from previous scan results. Has not followed up with General surgery at. Drain has since been removed on the from his left lateral abdominal wall where his psoas abscess was drained here. Related Data Allergies Allergy/AdvReac Type Severity Reaction Status Date / Time banana Allergy Unknown Unknown Verified 01/23/25 07:28 Review of Systems 2 Review of Systems: As reviewed above in HPI [facility] Past Medical History Medical History Morbid obesity Elevated liver enzymes Anxiety with depression Surgical History Surgical History History of hip surgery Family History Family History Father No problems noted. Mother No problems noted. Sibling No problems noted. Social History Social History Smoking packs per day: 1 Smoking cigarettes per day: 20.0 Smoking status: Current every day smoker Tobacco type: cigarettes Second hand tobacco smoke exposure: Yes Alcohol intake: current Drinks per week: 30 Alcohol use details: patient drinks whiskey Substance use: never Substance use type: does not use Other substance usage details: FIFTH OF HARD LIQUIOR DAILY Do You Feel Safe in your Home?: Yes Lack of Transportation: No Lack of Food: Never True Current Housing: I Have Housing Concerned About Future Housing: No Difficulty Paying Gas/Electric Bills: No Difficulty Paying for Meds: No Currently Unemployed: No Education: High School Diploma/GED Difficulty w/ Childcare or Family Care: No Living arrangements: with family Occupation/Education: occupation Additional occupation/education comments: [employer] Gender identity (if verbalized by the patient): Male Spiritual care concerns: No Exam 2 Narrative: GENERAL: Uncomfortable appearing but not any acute physical distress. Awake and answering questions. HEAD: [Normocephalic, atraumatic.] EYES: [PERRLA and EOMI.] ENT: Nares clear, no rhinorrhea or epistaxis. Mucous membranes moist. NECK: Supple. CHEST: [Clear to auscultation. No respiratory distress.] HEART: [Regular rate and rhythm]. No murmur heard. [Normal peripheral pulses.] ABDOMEN: Protuberant abdomen with tenderness to palpation diffusely especially in the right side. Left lateral abdominal wall were previous drain is clean dry intact without any drainage or cellulitis. No peritonitis. EXTREMITIES: Normal range of motion. 1+ pitting edema bilaterally symmetric SKIN: Warm, dry, no rash. NEURO: [No focal deficits]. Alert and oriented [x3.] PSYCH: [Normal mood and affect.] Course Vital Signs Vital signs: Vital Signs Temperature 36.6 C 01/22/25 21:28 Pulse Rate 120 H 01/22/25 21:28 Respiratory Rate 17 01/22/25 21:28 Blood Pressure 151/100 H 01/22/25 21:28 Pulse Oximetry 97 01/22/25 21:28 Oxygen Delivery Room Air 01/22/25 21:28 Temperature 36.7 C 01/23/25 01:22 Pulse Rate 100 01/23/25 08:46 Respiratory Rate 18 01/23/25 08:46 Blood Pressure 130/83 01/23/25 08:46 Pulse Oximetry 94 01/23/25 08:46 Oxygen Delivery Room Air 01/23/25 01:22 MDM - Abdominal Pain MDM Narrative Medical decision making narrative: 30-year-old male with complex past medical history including recent large bowel obstruction secondary to potential neoplastic mass resulting in colonic perforation and retroperitoneal abscess requiring drainage. Patient was discharged from the hospital on the last week. He was discharged home with antibiotics to continue based on culture results. Patient has been taking the antibiotics but having worsening abdominal pain and subjective fevers as well as leg swelling today. States that pain is worsened with movement. No chest pain shortness a breath. No headache, vision changes. No traumatic injuries. Was not able to follow-up yet and supposedly scheduled for colonoscopy on the 07 of February to evaluate for potential neoplastic process from previous scan results. Has not followed up with General surgery at. Drain has since been removed on the from his left lateral abdominal wall where his psoas abscess was drained here. Patient is uncomfortable appearing and his abdomen shows protuberant abdomen with tenderness to palpation diffusely especially in the right side. Left lateral abdominal wall were previous drain is clean dry intact without any drainage or cellulitis. No peritonitis. He is tachycardic in the low 100s to 120 range but afebrile. Blood pressure 151/100. Considerations are for reaccumulation of abscess, worsening intra-abdominal infection, worsening colonic perforation, diverticulitis, appendicitis, cholecystitis. Urinary tract infection or recurrence of bowel obstruction. He is not nauseous or vomiting and had a bowel movement this morning but described as small and round. Patient given morphine for analgesia and fluids. Laboratory studies pending and CT scan of the abdomen pelvis with contrast obtained. Patient placed on children's court magistrate. CT scan shows colonic obstruction 9 cm dilated colon, pericolonic abscess formation and recurrent fluid collections with air-fluid levels. Relayed this information to the patient and we placed him on Zosyn for antibiotic coverage. Spoke to the general surgeon Dr. Santoro who will see the patient inpatient but recommended hospitalist admission. Spoke to the hospitalist who accepted the patient to a telemetry monitored bed at this time. Vital signs improved with interventions at this time. Given additional pain management. Admission orders placed. Family and patient updated on plan of care. Medical Records Attestation: I reviewed the patient's medical records. Lab Data Attestation: I reviewed the patient's lab results. 01/23/25 01:19 01/23/25 01:19 Labs: Lab Results 01/23/25 01/23/25 01/23/25 Range/Units 01:19 04:30 04:32 WBC 11.4 H (4.5-10.0) K/mm3 RBC 4.59 L (4.6-6.20) M/mm3 Hgb 13.4 L (14.0-18.0) g/dL Hct 40.5 L (42.0-52.0) % MCV 88.2 (80-100) fl MCH 29.2 (26-34) pg MCHC 33.1 (32-36) g/dl RDW 16.5 H (11.5-14.5) % Plt Count 526 H (150-375) k/mm3 MPV 8.8 (7.4-10.4) fl Immature Gran % (Auto) 0.6 H (0-0.5) % Neut % (Auto) 63.9 (45.5-73.1) % Lymph % (Auto) 21.2 (18.3-44.2) % [place] % (Auto) 13.0 H (2.6-8.5) % Eos % (Auto) 1.0 (0-4.4) % Baso % (Auto) 0.3 (0.2-1.2) % Lymph # (Auto) 2.42 (0.9-3.2) K/mm3 [place] # (Auto) 1.5 H (0.1-0.6) K/mm3 Eos # (Auto) 0.1 (0-0.3) K/mm3 Baso # (Auto) 0.0 (0.0-0.1) K/mm3 Abs Immat Gran (auto) 0.07 H (0.00-0.031) K/mm3 Absolute Neuts (auto) 7.3 H (1.3-6.7) K/mm3 Absolute Nucleated RBC 0.000 (0.0-0.012) K/mm3 Nucleated RBC % 0.0 (0.0-0.2) % Sodium 132 L (137-145) mmol/L Potassium 3.2 L (3.4-5.0) mmol/L Chloride 99 (98-107) mmol/L Carbon Dioxide 30 (22-30) mmol/L Anion Gap 3 L (4-12) mmol/L BUN 8 L (9-20) mg/dL Creatinine 0.55 L (0.7-1.3) mg/dL Estim Creat Clear Calc 217 ml/min Estimated GFR > 60 (59 - ) Glucose 107 (65-110) mg/dL Lactic Acid 1.6 (0.7-2.0) mmol/L Calcium 8.3 L (8.4-10.2) mg/dL Total Bilirubin 1.1 (0.2-1.3) mg/dL AST 28 (17-59) U/L ALT 23 (6-50) U/L Alkaline Phosphatase 116 (38-126) U/L Total Protein 6.4 (6.3-8.2) g/dL Albumin 3.0 L (3.5-5.1) g/dL Lipase 25 (23-300) U/L Urine Color Dark yellow (Yellow) Urine Appearance Clear (Clear) Urine pH 6.5 (5.0-9.0) Ur Specific [place] > 1.045 H (1.001-1.035) Urine Protein Negative (Negative) mg/dL Urine Glucose (UA) Negative (Negative) mg/dL Urine Ketones Negative (Negative) mg/dL Ur Blood (Man) Negative (Negative) Urine Nitrate Negative (Negative) Urine Bilirubin Negative (Negative) Urine Urobilinogen 4.0 H (<2.0) mg/dL Leukocyte Esterase Rfl Negative (Negative) FEREMAN/UL Urine RBC 0-2 (0-2) /hpf Urine WBC 0-5 (0-3) /hpf Imaging Data Attestation: I personally reviewed and interpreted this imaging study as follows: Radiologist's impression: ITS Impressions Abdomen/Pelvis CT 01/23/25 07:24 IMPRESSION: 1. Wall thickening and stricture at the junction of the descending and sigmoid colon, consistent with diverticulitis versus malignancy with small abscesses and bowel obstruction. Critical Care Time Critical Care Time Critical Care Time: Yes Total Critical Care Time: 35 Discharge Plan Discharge Clinical Impression: Diverticulitis of intestine with abscess, Large bowel obstruction Patient Disposition: Still a Patient Condition: Stable Instructions: Antibiotic Form Patient Language: Belarusian Prescriptions: No Action omeprazole 40 mg capsule,delayed release(DR/EC) 40 mg PO DAILY Qty: 90 0RF bupropion HCl 300 mg tablet extended release 24 hr 300 mg PO QAM Qty: 30 0RF quetiapine 50 mg tablet 50 mg PO QHS Qty: 30 0RF propranolol 60 mg capsule,extended release 24 hr 60 mg PO DAILY Qty: 30 0RF metronidazole 500 mg tablet 500 mg PO Q8H 10 Days Qty: 30 0RF lorazepam 1 mg tablet 1 mg PO DAILY PRN (Reason: anxiety) Qty: 30 0RF ciprofloxacin HCl 750 mg tablet 750 mg PO Q12H 10 Days Qty: 20 0RF Follow-up/Referrals: Katherine Anders, TELECOM ENGINEER [Primary Care Provider, [facility]]
--- NOTE | 2025-01-23 04:25 | PC.NURSE ---
Patient attempting to provide urine sample and requesting more pain medications. ERP notified and VORB to give 1mg dilaudid IVP. Orders placed.
[2025-01-23] MEDS: HYDROmorphone HCL INJ (*CRX) 1 MG/ML SYR IV PUSH (04:33)
[2025-01-23 04:42] LABS: Add Urine Microscopic? YES; Appearance Urine Clear (Clear); Glucose Urine UA Negative (Negative); Leukocyte Esterase Ur Negative LEU/UL (Negative); Nitrate Urine Negative (Negative); Specific Grav Ur > 1.045 (1.001-1.035)
[2025-01-23] MEDS: PIPERACILLIN/TAZOBACTAM SOD 4.5 GM in SODIUM CHLORIDE 0.9% IV 100 ML 200 ML IVPB (05:31)
[2025-01-23] MEDS: ONDANSETRON INJ 4 MG/2 ML VIAL IV PUSH (07:22)
[2025-01-23] MEDS: HYDROmorphone HCL INJ (*CRX) 1 MG/ML SYR 0.5 MG IV PUSH ×3 (07:24→16:51)
[2025-01-23] MEDS: LACTATED RINGERS 1,000 ML 150 ML IV CONT ×2 (07:27→16:51)
[2025-01-23] MEDS: HYDROcodone/acetaminophen (*CRX) 5-325 MG TABLET 1 TAB PO ×3 (10:22→21:55)
[2025-01-23] MEDS: PIPERACILLIN/TAZOBACTAM SOD 3.375 GM in SODIUM CHLORIDE 0.9% IV 50 ML 100 ML IVPB ×2 (11:43→18:09)
--- NOTE | 2025-01-23 12:01 | P.CONGS_ITS ---
Assessment and Plan Assessment and plan (1) Large bowel obstruction: Code(s): K56.609 - Unspecified intestinal obstruction, unspecified as to partial versus complete obstruction Status: Acute Assessment and Plan: * CT still showing signs of a large bowel obstruction secondary to the wall thickening noted in the sigmoid and distal descending colon. He is distended, but his abdominal exam is otherwise fairly benign. He is still having some bowel function. * Will allow clear liquids for now and continue to monitor with serial abdominal exams and labs. * Discussed with the patient that there is no indication for emergent surgical intervention at this time, but he would require surgery if he develops more signs of a high-grade obstruction. (2) Diverticulitis of intestine with abscess: Code(s): K57.80 - Diverticulitis of intestine, part unspecified, with perforation and abscess without bleeding Status: Acute Assessment and Plan: * No known history of diverticulitis. CT again shows wall thickening of the distal descending colon and sigmoid colon. No signs of perforation, but there is a new fluid collection within the wall of the distal descending colon that is 4 x 2 x 1 cm. This could be an inflammatory stricture vs less likely a malignancy. His recurrent issues are likely related to his noncompliance with his oral antibiotics after discharge. * Continue IV antibiotics and close monitoring * He will eventually need a colonoscopy in a few weeks after the inflammation improves. (3) Psoas abscess, left: Code(s): K68.12 - Psoas muscle abscess Status: Acute Assessment and Plan: * Decreased in size in comparison to previous CT scan, now at about 2 cm. Continue IV antibiotics and monitor. Cultures from previous hospitalization showed growth of E.coli, bacteroides species, and pseudomonas that are sensitive to Zosyn. (4) Alcohol abuse: Code(s): F10.10 - Alcohol abuse, uncomplicated Status: Acute Assessment and Plan: * Patient has heavy alcohol use. He did drink alcohol since his last admission, but reports less than typical. Encouraged cessation. (5) Morbid obesity with body mass index (BMI) of 40.0 to 49.9: Code(s): E66.01 - Morbid (severe) obesity due to excess calories Status: Acute Assessment and Plan: * Encouraged lifestyle modifications to promote weight loss. This increases his surgical risks. (6) Tobacco dependence: Code(s): F17.200 - Nicotine dependence, unspecified, uncomplicated Status: Acute Assessment and Plan: * Will order nicotine patch, encouraged cessation, patient continued to smoke after discharge last week. (7) Tachycardia: Code(s): R00.0 - Tachycardia, unspecified Status: Acute Assessment and Plan: * Hx of tachycardia treated with propranolol by his PCP Plan I have discussed the patient's case and plan of care with Dr. Mayfield. Thank you for allowing us to see the patient in consultation and we will continue to follow along with you. History of Present Illness Consult details Consult date: 01/23/25 Reason for consult: other (Intraabdominal abscess, large bowel obstruction) Requesting physician: Flaca Reynolds MD Narrative: This is a 30-year-old male with history of alcohol and tobacco abuse, obesity, tachycardia on propranolol, and anxiety/depression, who is known to our service from a recent hospitalization from 01/09/25 - 01/16/25 for large bowel obstruction secondary to descending colon stricture with microperforation and psoas abscess. He was treated with IV antibiotics and percutaneous drainage. He appeared to have a partial obstruction and was moving his bowels and tolerating a solid diet prior to discharge. He was prescribed Augmentin and metronidazole on discharge, which he did not miner pick from the pharmacy for a few days after discharge. Reportedly due to insurance issues. His abscess cultures grew bacteroides species, E.coli, and pseudomonas aeruginosa. When sensitivities resulted after discharge, he was switched to ciprofloxacin and metronidazole. We attempted to call the patient daily to notify him of the results and to change antibiotics, but he never returned the call. We had called daily during office hours since 01/18 and leaving a voicemail with no returned call. The patient reports he attempted to call, but it was only Thursday afternoon when our office was closed. He eventually picked up the ciprofloxacin and started taking this 2 days ago. He never took any of the Augmentin or metronidazole. Over the past few days, he has become more distended and bloated. He had more discomfort across his upper abdomen with cramping pain that he related to the distention. He is still passing flatus and has had bowel movements, but reportedly are smaller in caliber. He had a BM yesterday that was small. No nausea or vomiting. No other complaints at this time. In the ER, labs showed a WBC count of 11,400, normal lactic acid, and potassium 3.2. CT scan of the abdomen and pelvis showed again wall thickening and stricture at the junction of the descending and sigmoid colon, consistent with diverticulitis vs malignancy with small abscesses and bowel obstruction. He was admitted and started on IV Zosyn and IV fluids. Potassium has not been replaced. No other complaints at this time. Review of Systems 2 Review of Systems: All systems reviewed & are unremarkable except as noted in HPI and below PMFSH Past Medical History Medical History Morbid obesity Elevated liver enzymes Anxiety with depression Surgical History Surgical History History of hip surgery Family History Family History Father No problems noted. Mother No problems noted. Sibling No problems noted. Social History Social History Smoking packs per day: 1 Smoking cigarettes per day: 20.0 Smoking status: Current every day smoker Tobacco type: cigarettes Second hand tobacco smoke exposure: Yes Alcohol intake: current Drinks per week: 30 Alcohol use details: patient drinks whiskey Substance use: never Substance use type: does not use Other substance usage details: FIFTH OF HARD LIQUIOR DAILY Do You Feel Safe in your Home?: Yes Lack of Transportation: No Lack of Food: Never True Current Housing: I Have Housing Concerned About Future Housing: No Difficulty Paying Gas/Electric Bills: No Difficulty Paying for Meds: No Currently Unemployed: No Education: High School Diploma/GED Difficulty w/ Childcare or Family Care: No Living arrangements: with family Occupation/Education: occupation Additional occupation/education comments: [employer] Gender identity (if verbalized by the patient): Male Spiritual care concerns: No Meds Home Medications and Allergies Home Medications ?Medication ?Instructions ?Recorded ?Confirmed ?Type bupropion HCl 300 mg 24 hr tablet, 300 mg PO QAM #30 t abs 12/16/24 01/23/25 Rx extended release omeprazole 40 mg capsule,delayed 40 mg PO DAILY #90 ca ps 12/16/24 01/23/25 Rx release propranolol 60 mg capsule,24 60 mg PO DAILY #30 caps 0 12/16/24 01/23/25 Rx hr,extended release quetiapine 50 mg tablet 50 mg PO QHS #30 tabs 01/23/25 Rx lorazepam 1 mg tablet 1 mg PO DAILY PRN anxiety #3 0 tabs 12/21/24 01/23/25 Rx metronidazole 500 mg tablet 500 mg PO Q8H 10 days #30 tabs 01/16/25 01/23/25 Rx Held on 01/23/25. Instructions: Pt states not currently taking ciprofloxacin HCl 750 mg tablet 750 mg PO Q12H 10 days #20 tabs 01/18/25 01/23/25 Rx Allergies Allergy/AdvReac Type Severity Reaction Status Date / Time banana Allergy Unknown Unknown Verified 01/23/25 07:28 Vital Signs Vital Signs - 24 hr 01/22/25 21:28 01/23/25 01:21 01/23/25 01:22 Temperature 98 F 98.1 F Pulse Rate 120 H 107 H 105 H Respiratory Rate 17 17 18 Blood Pressure 151/100 H 145/96 H 145/96 H Pulse Oximetry 97 97 97 Oxygen Delivery Room Air Room Air 01/23/25 01:36 01/23/25 01:45 01/23/25 02:00 Temperature Pulse Rate 104 H 105 H 102 H Respiratory Rate 20 19 21 H Blood Pressure Pulse Oximetry 95 95 94 Oxygen Delivery 01/23/25 02:02 01/23/25 02:48 01/23/25 03:00 Temperature Pulse Rate 107 H 105 H 103 H Respiratory Rate 18 15 24 H Blood Pressure 119/85 Pulse Oximetry 100 99 98 Oxygen Delivery 01/23/25 03:15 01/23/25 03:19 01/23/25 03:30 Temperature Pulse Rate 105 H 105 H 107 H Respiratory Rate 18 25 H 18 Blood Pressure 140/82 Pulse Oximetry 96 95 96 Oxygen Delivery 01/23/25 03:31 01/23/25 03:45 01/23/25 07:28 Temperature Pulse Rate 108 H 107 H 103 H Respiratory Rate 22 H 24 H 19 Blood Pressure 121/70 128/93 H Pulse Oximetry 96 95 94 Oxygen Delivery 01/23/25 07:58 01/23/25 08:46 01/23/25 09:23 Temperature Pulse Rate 103 H 100 99 Respiratory Rate 18 19 Blood Pressure 130/83 127/87 Pulse Oximetry 94 94 Oxygen Delivery 01/23/25 10:22 01/23/25 10:50 Temperature 98.2 F Pulse Rate 97 93 Respiratory Rate 13 18 Blood Pressure 103/80 119/74 Pulse Oximetry 96 94 Oxygen Delivery Exam 2 Const: General: comfortable and no acute distress Nutritional Appearance: o bese Orientation/consciousness: patient oriented x3 HENMT: Head: normocephalic and atraumatic Ears: hearing grossly normal bilaterally Mouth: Yes moist mucous membranes Eyes: General: appearance normal, both eyes and all related structures P upils: Equal, round and reactive pupils present Neck: Neck: normal visual inspection and full ROM Resp: Effort & Inspection: no respiratory distress Auscultation: clear to auscultation bilaterally Cardio: Rate: regular rate Rhythm: regular rhythm Peripheral pulses: P eripheral pulses 2+ throughout GI: Inspection: distended, Pannus present and obesity GI Palp: Yes Soft to palpation, Yes Tenderness to palpation present (GI) (mild tenderness across the upper abdomen), No Guarding due to palpation present (GI), Yes No hepatosplenomegaly present and No Rebound tenderness present Percussion: Yes tympanic to percussion Auscultation: High-pitched bowel sounds present R ectal Exam: deferred Skin: General skin exam: normal color Neuro: General: moves all extremities and no focal motor deficits Speech: n ormal speech Motor exam (neuro): 5/5 motor strength present throughout Extrem: General: normal to inspection and no edema Psych: Mental Status: mental status grossly normal Attitude: cooperative Insight: Good insight present (Psych) Judgement: Good judgement present (Psych) Results Labs 01/23/25 01:19 01/23/25 01:19 Labs: Abnormal lab results 01/23/25 01/23/25 Range/Units 01:19 04:30 WBC 11.4 H (4.5-10.0) K/mm3 RBC 4.59 L (4.6-6.20) M/mm3 Hgb 13.4 L (14.0-18.0) g/dL Hct 40.5 L (42.0-52.0) % RDW 16.5 H (11.5-14.5) % Plt Count 526 H (150-375) k/mm3 Immature Gran % (Auto) 0.6 H (0-0.5) % [place] % (Auto) 13.0 H (2.6-8.5) % [place] # (Auto) 1.5 H (0.1-0.6) K/mm3 Abs Immat Gran (auto) 0.07 H (0.00-0.031) K/mm3 Absolute Neuts (auto) 7.3 H (1.3-6.7) K/mm3 Sodium 132 L (137-145) mmol/L Potassium 3.2 L (3.4-5.0) mmol/L Anion Gap 3 L (4-12) mmol/L BUN 8 L (9-20) mg/dL Creatinine 0.55 L (0.7-1.3) mg/dL Calcium 8.3 L (8.4-10.2) mg/dL Albumin 3.0 L (3.5-5.1) g/dL Ur Specific [place] > 1.045 H (1.001-1.035) Urine Urobilinogen 4.0 H (<2.0) mg/dL Diabetes panel 01/23/25 Range/Units 01:19 Sodium 132 L (137-145) mmol/L Potassium 3.2 L (3.4-5.0) mmol/L Chloride 99 (98-107) mmol/L Carbon Dioxide 30 (22-30) mmol/L BUN 8 L (9-20) mg/dL Creatinine 0.55 L (0.7-1.3) mg/dL Glucose 107 (65-110) mg/dL Calcium 8.3 L (8.4-10.2) mg/dL AST 28 (17-59) U/L ALT 23 (6-50) U/L Alkaline Phosphatase 116 (38-126) U/L Total Protein 6.4 (6.3-8.2) g/dL Albumin 3.0 L (3.5-5.1) g/dL Calcium panel 01/23/25 Range/Units 01:19 Calcium 8.3 L (8.4-10.2) mg/dL Albumin 3.0 L (3.5-5.1) g/dL Pituitary panel 01/23/25 Range/Units 01:19 Sodium 132 L (137-145) mmol/L Potassium 3.2 L (3.4-5.0) mmol/L Chloride 99 (98-107) mmol/L Carbon Dioxide 30 (22-30) mmol/L BUN 8 L (9-20) mg/dL Creatinine 0.55 L (0.7-1.3) mg/dL Glucose 107 (65-110) mg/dL Calcium 8.3 L (8.4-10.2) mg/dL Adrenal panel 01/23/25 Range/Units 01:19 Sodium 132 L (137-145) mmol/L Potassium 3.2 L (3.4-5.0) mmol/L Chloride 99 (98-107) mmol/L Carbon Dioxide 30 (22-30) mmol/L BUN 8 L (9-20) mg/dL Creatinine 0.55 L (0.7-1.3) mg/dL Glucose 107 (65-110) mg/dL Calcium 8.3 L (8.4-10.2) mg/dL Total Bilirubin 1.1 (0.2-1.3) mg/dL AST 28 (17-59) U/L ALT 23 (6-50) U/L Alkaline Phosphatase 116 (38-126) U/L Total Protein 6.4 (6.3-8.2) g/dL Albumin 3.0 L (3.5-5.1) g/dL All other labs normal. Imaging Additional studies: ITS Impressions Abdomen/Pelvis CT 01/23/25 07:24 IMPRESSION: 1. Wall thickening and stricture at the junction of the descending and sigmoid colon, consistent with diverticulitis versus malignancy with small abscesses and bowel obstruction.
[2025-01-23] MEDS: POTASSIUM CHLORIDE INJ 40 MEQ in SODIUM CHLORIDE 0.9% IV 500 ML 130 MEQ IVPB (12:52)
--- NOTE | 2025-01-23 17:23 | ADMGEN ---
This patient, Jose Galloway, was admitted to Medical Room 259-01. Patient/family oriented to hospital policies and general routines including ID bracelet, bed and alarms, visiting hours, pain management, procedures, bathroom and other care routines, personal items, smoking policy, room service/diet, and visiting hours. Information on how to activate the Rapid Response Team has been discussed. Patient/Family are encouraged to report perceived risks to care and to ask questions if they do not understand what they are told or what they should do.
--- NOTE | 2025-01-23 17:53 | PM.IMHP ---
H&P: HPI History of Present Illness Date/Time: 01/23/25 17:53 Chief Complaint: Abdominal pain Narrative: 30-year-old male past medical history of anxiety and hypertension recently managed for Large bowel obstruction, psoas muscle abscess and discharged on 01/16/25 who presented again with Abd pain. Noted pain has continued since discharge and pain has been worsening since then. described pain as sharp, diffuse but worse on the LLQ, 10/10 in intensity, intermittent with increasing frequency. Noted few loose stools but denies any vomiting, chest pain, SOB, no blood in stool. ER eval notable HR 120, RR 17, BP 151/100, saturating 97% on room air. WBC 11.4, K 3.2, Na 132 CT AP showed wall thickening and stricture at the junction of the descending and sigmoid colon consistent with diverticulitis versus maalignancy with small S abscesses and bowl obstruction Review of Systems Review of Systems: ALl other systems were reviewed and negative except as noted in aram HPI above PMFSH Past Medical History Medical History Morbid obesity Elevated liver enzymes Anxiety with depression Surgical History Surgical History History of hip surgery Family History Family History Father No problems noted. Mother No problems noted. Sibling No problems noted. Social History Social History Smoking packs per day: 1 Smoking cigarettes per day: 20.0 Years smoked: 15 Smoking pack-years: 15.00 Smoking status: Current every day smoker Tobacco type: cigarettes Second hand tobacco smoke exposure: Yes Alcohol intake: current Drinks per week: 30 Alcohol use details: patient drinks whiskey Substance use: never Substance use type: does not use Other substance usage details: FIFTH OF HARD LIQUIOR DAILY Last use: Drinks 750ml of Fireball per day; last drink was Thursday Do You Feel Safe in your Home?: Yes Lack of Transportation: No Lack of Food: Never True Current Housing: I Have Housing Concerned About Future Housing: No Difficulty Paying Gas/Electric Bills: No Difficulty Paying for Meds: No Currently Unemployed: No Education: High School Diploma/GED Difficulty w/ Childcare or Family Care: No Living arrangements: with family Occupation/Education: occupation Additional occupation/education comments: [employer] Gender identity (if verbalized by the patient): Male Spiritual care concerns: No Meds Home Medications and Allergies Home Medications ?Medication ?Instructions ?Recorded ?Confirmed ?Type bupropion HCl 300 mg 24 hr tablet, 300 mg PO QAM #30 tabs 12/16/24 01/23/25 Rx extended release omeprazole 40 mg capsule,delayed 40 mg PO DAILY #90 caps 12/16/24 01/23/25 Rx release propranolol 60 mg capsule,24 60 mg PO DAILY #30 caps 12/16/24 01/23/25 Rx hr,extended release quetiapine 50 mg tablet 50 mg PO QHS #30 tabs 12/16/24 01/23/25 Rx lorazepam 1 mg tablet 1 mg PO DAILY PRN anxiety #30 tabs 12/21/24 01/23/25 Rx metronidazole 500 mg tablet 500 mg PO Q8H 10 days #30 tabs 01/16/25 01/23/25 Rx Held on 01/23/25. Instructions: Pt states not currently taking ciprofloxacin HCl 750 mg tablet 750 mg PO Q12H 10 days #20 tabs 01/18/25 01/23/25 Rx Allergies Allergy/AdvReac Type Severity Reaction Status Date / Time banana Allergy Unknown Unknown Verified 01/23/25 17:32 Vital Signs Vital Signs - 24 hr 01/22/25 21:28 01/23/25 01:21 01/23/25 01:22 Temperature 98 F 98.1 F Pulse Rate 120 H 107 H 105 H Respiratory Rate 17 17 18 Blood Pressure 151/100 H 145/96 H 145/96 H Pulse Oximetry 97 97 97 Oxygen Delivery Room Air Room Air 01/23/25 01:36 01/23/25 01:45 01/23/25 02:00 Temperature Pulse Rate 104 H 105 H 102 H Respiratory Rate 20 19 21 H Blood Pressure Pulse Oximetry 95 95 94 Oxygen Delivery 01/23/25 02:02 01/23/25 02:48 01/23/25 03:00 Temperature Pulse Rate 107 H 105 H 103 H Respiratory Rate 18 15 24 H Blood Pressure 119/85 Pulse Oximetry 100 99 98 Oxygen Delivery 01/23/25 03:15 01/23/25 03:19 01/23/25 03:30 Temperature Pulse Rate 105 H 105 H 107 H Respiratory Rate 18 25 H 18 Blood Pressure 140/82 Pulse Oximetry 96 95 96 Oxygen Delivery 01/23/25 03:31 01/23/25 03:45 01/23/25 07:28 Temperature Pulse Rate 108 H 107 H 103 H Respiratory Rate 22 H 24 H 19 Blood Pressure 121/70 128/93 H Pulse Oximetry 96 95 94 Oxygen Delivery 01/23/25 07:58 01/23/25 08:46 01/23/25 09:23 Temperature Pulse Rate 103 H 100 99 Respiratory Rate 18 19 Blood Pressure 130/83 127/87 Pulse Oximetry 94 94 Oxygen Delivery 01/23/25 10:22 01/23/25 10:50 01/23/25 17:28 Temperature 98.2 F 97.7 F Pulse Rate 97 93 100 Respiratory Rate 13 18 16 Blood Pressure 103/80 119/74 122/89 Pulse Oximetry 96 94 96 Oxygen Delivery 01/23/25 17:48 Temperature Pulse Rate 100 Respiratory Rate 16 Blood Pressure Pulse Oximetry 96 Oxygen Delivery Room Air Exam Narrative: General: alert and comfortable Eyes: EOMI, PERRLA ENNT External ears normal, Neck is supple, no masses, Respiratory systems: Clear to auscultation Cardiovascular S1, S2, normal rhythm, no murmur, rub, or gallop; no thrill or palpable murmurs on palpation. Gastrointestinal: soft, LLQ tender, and distended abdomen with no masses; BS present Skin: no rash, lesions, ulcerations, subcutaneous nodules or induration Musculoskeletal: no abnormality and no tenderness, normal ROM Neurologic: Alert and oriented x3, non focal Mental Status Exam: normal affect H&P: Results Labs Labs: Short CBC 01/23/25 Range/Units 01:19 WBC 11.4 H (4.5-10.0) K/mm3 Hgb 13.4 L (14.0-18.0) g/dL Hct 40.5 L (42.0-52.0) % Plt Count 526 H (150-375) k/mm3 BMP 01/23/25 01:19 Sodium 132 L Potassium 3.2 L Chloride 99 Carbon Dioxide 30 BUN 8 L Creatinine 0.55 L Glucose 107 Calcium 8.3 L Liver Function 01/23/25 Range/Units 01:19 Total Bilirubin 1.1 (0.2-1.3) mg/dL AST 28 (17-59) U/L ALT 23 (6-50) U/L Alkaline Phosphatase 116 (38-126) U/L Albumin 3.0 L (3.5-5.1) g/dL Urine 01/23/ Range/Units 04:30 Urine Color Dark yellow (Yellow) Urine Appearance Clear (Clear) Urine pH 6.5 (5.0-9.0) Ur Specific [place] > 1.045 H (1.001-1.035) Urine Protein Negative (Negative) mg/dL Urine Glucose (UA) Negative (Negative) mg/dL Assessment and Plan Assessment and plan (1) Large bowel obstruction: Code(s): K56.609 - Unspecified intestinal obstruction, unspecified as to partial versus complete obstruction Status: Acute (2) Diverticulitis of intestine with abscess: Code(s): K57.80 - Diverticulitis of intestine, part unspecified, with perforation and abscess without bleeding Status: Acute Plan Diverticulitis with abscesses CT AP reviewed Patient recent managed for Psoas abscess s/p drainage and abx Wound culture review from prior admission showed E coli pansensitive, Pseudomonas pansensitive adn Bacteriodes Continue Zosyn and IVF Gen surgery following Large obstruction CT AP showed possible Stricture vs Malignancy Gen surgery following and recommended clear liquid diet monitor closely HTN titrate home meds with clinical course Anxiety Continue home meds Tobacco use disorder smokes 1PPD, counseled about smoking sensation Alcohol abuse stated he drinks about a 5th a day however in the past 2 weeks due prior hospitalizations has only drank twice Started on Banana bag, folic acid and thiamine DVT prophylaxis on Sq Lovenox Full code Hospitalist [facility] Advance Care Plan I have confirmed that the patient's Advanced Care Plan is present, code status is documented, or surrogate decision maker is listed in patient medical record.: Yes Medication Reconciliation I have utilized all available resources to obtain, update and review the patients current medications (includes all prescriptions, OTC, herbals, cannabis, and nutritional supplements).: Yes
[2025-01-23] MEDS: THIAMINE HCL INJ 100 MG, FOLIC ACID INJ 1 MG, MAGNESIUM SULFATE INJ 1 GM, MULTIVITAMINS... 125 MG IV CONT (20:54)
[2025-01-24] VITALS (9 sets, daily range): BP systolic 135–150; BP diastolic 71–98; PULSE 82–119; RESP 15–20; TEMP 36.5–36.6; O2SAT 95–97; BMI 45.6
[2025-01-24] MEDS: HYDROmorphone HCL INJ (*CRX) 1 MG/ML SYR 0.5 MG IV PUSH ×4 (00:12→20:25)
[2025-01-24] MEDS: PIPERACILLIN/TAZOBACTAM SOD 3.375 GM in SODIUM CHLORIDE 0.9% IV 50 ML 100 ML IVPB ×5 (00:12→23:05)
[2025-01-24 05:16] LABS: Hematocrit 37.2 % (42.0-52.0); Hemoglobin 12.0 g/dL (14.0-18.0); Immature Granulocyte Percent A 0.8 % (0-0.5); Lymphocytes Absolute Auto 1.81 K/mm3 (0.9-3.2); Mean Corpuscular HGB Conc 32.3 g/dl (32-36); Mean Corpuscular Hemoglobin 29.4 pg (26-34); Mean Corpuscular Volume 91.2 fl (80-100); Nucleated Red Blood Cells Absolute Auto 0.000 K/mm3 (0.0-0.012); Nucleated Red Blood Cells Perc 0.0 % (0.0-0.2); Platelet Count Result 481 k/mm3 (150-375); Red Blood Count 4.08 M/mm3 (4.6-6.20); White Blood Count 8.7 K/mm3 (4.5-10.0)
[2025-01-24 05:33] LABS: Anion Gap 4 mmol/L (4-12); Blood Urea Nitrogen 6 mg/dL (9-20); Calcium 7.7 mg/dL (8.4-10.2); Carbon Dioxide 28 mmol/L (22-30); Chloride 101 mmol/L (98-107); Estimated CRCL calculation 225 ml/min; Estimated Glomerular Filt Rate > 60; Glucose 86 mg/dL (65-110); Magnesium 2.0 mg/dL (1.6-2.3); Potassium 3.5 mmol/L (3.4-5.0); Sodium 133 mmol/L (137-145)
--- NOTE | 2025-01-24 07:09 | P.HP_ITS ---
H&P: HPI History of Present Illness Date/Time: 01/24/25 07:09 Review of Systems Review of Systems: ALl other systems were reviewed and negative except as noted in aram HPI above [facility] Past Medical History Medical History Morbid obesity Elevated liver enzymes Anxiety with depression Surgical History Surgical History History of hip surgery Family History Family History Father No problems noted. Mother No problems noted. Sibling No problems noted. Social History Social History Smoking packs per day: 1 Smoking cigarettes per day: 20.0 Years smoked: 15 Smoking pack-years: 15.00 Smoking status: Current every day smoker Tobacco type: cigarettes Second hand tobacco smoke exposure: Yes Alcohol intake: current Drinks per week: 30 Alcohol use details: patient drinks whiskey Substance use: never Substance use type: does not use Other substance usage details: FIFTH OF HARD LIQUIOR DAILY Last use: Drinks 750ml of Fireball per day; last drink was Thursday Do You Feel Safe in your Home?: Yes Lack of Transportation: No Lack of Food: Never True Current Housing: I Have Housing Concerned About Future Housing: No Difficulty Paying Gas/Electric Bills: No Difficulty Paying for Meds: No Currently Unemployed: No Education: High School Diploma/GED Difficulty w/ Childcare or Family Care: No Living arrangements: with family Occupation/Education: occupation Additional occupation/education comments: [employer] Gender identity (if verbalized by the patient): Male Spiritual care concerns: No Meds Home Medications and Allergies Home Medications ?Medication ?Instructions ?Recorded ?Confirmed ?Type bupropion HCl 300 mg 24 hr tablet, 300 mg PO QAM #30 t abs 12/16/24 01/23/25 Rx extended release omeprazole 40 mg capsule,delayed 40 mg PO DAILY #90 ca ps 12/16/24 01/23/25 Rx release propranolol 60 mg capsule,24 60 mg PO DAILY #30 caps 0 12/16/24 01/23/25 Rx hr,extended release quetiapine 50 mg tablet 50 mg PO QHS #30 tabs 01/23/25 Rx lorazepam 1 mg tablet 1 mg PO DAILY PRN anxiety #3 0 tabs 12/21/24 01/23/25 Rx metronidazole 500 mg tablet 500 mg PO Q8H 10 days #30 tabs 01/16/25 01/23/25 Rx Held on 01/23/25. Instructions: Pt states not currently taking ciprofloxacin HCl 750 mg tablet 750 mg PO Q12H 10 days #20 tabs 01/18/25 01/23/25 Rx Allergies Allergy/AdvReac Type Severity Reaction Status Date / Time banana Allergy Unknown Unknown Verified 01/23/25 17:32 Vital Signs Vital Signs - 24 hr 01/23/25 07:28 01/23/25 07:58 01/23/25 08:46 Temperature Pulse Rate 103 H 103 H 100 Respiratory Rate 19 18 Blood Pressure 128/93 H 130/83 Pulse Oximetry 94 94 Oxygen Delivery 01/23/25 09:23 01/23/25 10:22 01/23/25 10:50 Temperature 98.2 F Pulse Rate 99 97 93 Respiratory Rate 19 13 18 Blood Pressure 127/87 103/80 119/74 Pulse Oximetry 94 96 94 Oxygen Delivery 01/23/25 17:28 01/23/25 17:48 01/23/25 22:00 Temperature 97.7 F 97.9 F Pulse Rate 100 100 97 Respiratory Rate 16 16 18 Blood Pressure 122/89 139/85 Pulse Oximetry 96 96 93 Oxygen Delivery Room Air 01/24/25 06:00 Temperature 97.7 F Pulse Rate 95 Respiratory Rate 20 Blood Pressure 135/71 Pulse Oximetry 95 Oxygen Delivery Exam Narrative: General: alert and comfortable Eyes: EOMI, PERRLA ENNT External ears normal, Neck is supple, no masses, Respiratory systems: Clear to auscultation Cardiovascular S1, S2, normal rhythm, no murmur, rub, or gallop; no thrill or palpable murmurs on palpation. Gastrointestinal: soft, LLQ tender, and distended abdomen with no masses; BS present Skin: no rash, lesions, ulcerations, subcutaneous nodules or induration Musculoskeletal: no abnormality and no tenderness, normal ROM Neurologic: Alert and oriented x3, non focal Mental Status Exam: normal affect H&P: Results Labs Labs: Short CBC 01/24/25 Range/Units 04:50 WBC 8.7 (4.5-10.0) K/mm3 Hgb 12.0 L (14.0-18.0) g/dL Hct 37.2 L (42.0-52.0) % Plt Count 481 H (150-375) k/mm3 [facility] 01/24/25 04:50 Sodium 133 L Potassium 3.5 Chloride 101 Carbon Dioxide 28 BUN 6 L Creatinine 0.54 L Glucose 86 Calcium 7.7 L Assessment and Plan Assessment and plan (1) Large bowel obstruction: Code(s): K56.609 - Unspecified intestinal obstruction, unspecified as to partial versus complete obstruction Status: Acute (2) Diverticulitis of intestine with abscess: Code(s): K57.80 - Diverticulitis of intestine, part unspecified, with perforation and abscess without bleeding Status: Acute Plan Diverticulitis with abscesses CT AP reviewed Patient recent managed for Psoas abscess s/p drainage and abx Wound culture review from prior admission showed E coli pansensitive, Pseudomonas pansensitive adn Bacteriodes Continue Zosyn and IVF Gen surgery following Large obstruction CT AP showed possible Stricture vs Malignancy Gen surgery following and recommended clear liquid diet monitor closely HTN titrate home meds with clinical course Anxiety Continue home meds Tobacco use disorder smokes 1PPD, counseled about smoking sensation Alcohol abuse stated he drinks about a 5th a day however in the past 2 weeks due prior hospitalizations has only drank twice Started on Banana bag, folic acid and thiamine DVT prophylaxis on Sq Lovenox Full code
[2025-01-24] MEDS: NICOTINE (*PBKC) 21 MG PATCH 1 PATCH TRANSDERM (07:56)
[2025-01-24] MEDS: HYDROcodone/acetaminophen (*CRX) 5-325 MG TABLET 1 TAB PO ×3 (07:56→23:05)
[2025-01-24] MEDS: ENOXAPARIN 40 MG/0.4 ML SYRINGE SUB-Q (07:57)
--- NOTE | 2025-01-24 10:15 | P.PNGS_ITS ---
Progress Note: A&P Assessment and Plan (1) Large bowel obstruction: Code(s): K56.609 - Unspecified intestinal obstruction, unspecified as to partial versus complete obstruction Status: Acute Assessment and Plan: * Patient still complaining of epigastric/mid-abdominal pain. Passing flatus, but no BM yet. * Will continue clear liquids for now and consider advancing to fulls. No nausea or vomiting. Will continue to monitor with serial abdominal exams and labs. * No indication for emergent surgical intervention at this time, but would require surgery if he develops more signs of a high-grade obstruction. (2) Diverticulitis of intestine with abscess: Code(s): K57.80 - Diverticulitis of intestine, part unspecified, with perforation and abscess without bleeding Status: Acute Assessment and Plan: * No known history of diverticulitis. CT yesterday revealed psoas abscess to be decreased in size from last admission, but new abscess identified in wall of the distal descending colon where there is thickening of the wall. No perforation. Continue to treat with IV antibiotics. * He will eventually need a colonoscopy in a few weeks after the inflammation improves. (3) Psoas abscess, left: Code(s): K68.12 - Psoas muscle abscess Status: Acute Assessment and Plan: * Decreased in size in comparison to previous CT scan, now at about 2 cm. Continue IV antibiotics and monitor. Cultures from previous hospitalization showed growth of E.coli, bacteroides species, and pseudomonas that are sensitive to Zosyn. (4) Alcohol abuse: Code(s): F10.10 - Alcohol abuse, uncomplicated Status: Acute Assessment and Plan: * Patient has heavy alcohol use. He did drink alcohol since his last admission, but reports less than typical. Encouraged cessation. (5) Morbid obesity with body mass index (BMI) of 40.0 to 49.9: Code(s): E66.01 - Morbid (severe) obesity due to excess calories Status: Acute Assessment and Plan: * Encouraged lifestyle modifications to promote weight loss. This increases his surgical risks. (6) Tobacco dependence: Code(s): F17.200 - Nicotine dependence, unspecified, uncomplicated Status: Acute Assessment and Plan: * Will order nicotine patch, encouraged cessation, patient continued to smoke after discharge last week. (7) Tachycardia: Code(s): R00.0 - Tachycardia, unspecified Status: Acute Assessment and Plan: * Hx of tachycardia treated with propranolol by his PCP Plan I have discussed the patient's case and plan of care with Dr. Mayfield. Thank you for allowing us to see the patient in consultation and we will continue to follow along with you. Subjective Subjective Date/Time Seen: 01/24/25 10:15 Patient reports: no new complaints, tolerating liquids well (clears), flatus, no bowel movement and afebrile Interval history: Patient still complaining of epigastric and mid-abdominal pain. Exam GI: Inspection: distended, Pannus present and obesity GI Palp: Yes Tenderness to palpation present (GI) (epigastric/mid-abdomen) Auscultation: normal bowel sounds Rectal Exam: deferred Objective Data Vital Signs Vital Signs: Vital Signs - 24 hr 01/23/25 10:22 01/23/25 10:50 01/23/25 17:28 Temperature 98.2 F 97.7 F Pulse Rate 97 93 100 Respiratory Rate 13 18 16 Blood Pressure 103/80 119/74 122/89 Pulse Oximetry 96 94 96 Oxygen Delivery 01/23/25 17:48 01/23/25 21:00 01/23/25 22:00 Temperature 97.9 F Pulse Rate 100 95 97 Respiratory Rate 16 18 Blood Pressure 139/85 Pulse Oximetry 96 93 Oxygen Delivery Room Air 01/24/25 00:00 01/24/25 04:00 01/24/25 06:00 Temperature 97.7 F Pulse Rate 90 82 95 Respiratory Rate 20 Blood Pressure 135/71 Pulse Oximetry 95 Oxygen Delivery 01/24/25 08:00 01/24/25 08:00 Temperature Pulse Rate 97 Respiratory Rate Blood Pressure Pulse Oximetry Oxygen Delivery Room Air Intake/Output Intake/Output: Intake & Output 01/21/25 01/22/25 01/23/25 01/24/25 23:59 23:59 23:59 23:59 Intake Total 3567.5 700 Output Total 500 Balance 3567.5 200 Meds/Results Medications: Active Medications Generic Name Dose Route Start Last Admin Trade Name Freq PRN Reason Stop Dose Admin Acetaminophen 650 mg 01/23/25 05:15 Acetaminophen 325 Mg Tablet PO Q4H PRN Mild Pain (1-3) or Fever Hydrocodone Bitart/Acetaminophen 1 tab 01/23/25 05:15 01/24/25 07:56 Hydrocodone/Acetaminophen (*Crx) 5-325 Mg Tablet PO 1 tab Q4H PRN Administration Pain Rated 4-6 Diazepam 5 - 10 mg 01/23/25 18:31 Diazepam Inj (*Crx) 10 Mg/2 Ml Syringe IV PUSH Q5M PRN CIWA > 15 Enoxaparin Sodium 40 mg 01/24/25 09:00 01/24/25 07:57 Enoxaparin 40 Mg/0.4 Ml Syringe SUB-Q 40 mg DAILY ANNE Administration Hydromorphone HCl 0.5 mg 01/23/25 05:15 01/24/25 09:15 Hydromorphone Hcl Inj (*Crx) 1 Mg/Ml Syr IV PUSH 0.5 mg Q4H PRN Administration Pain Rated 7-10 Lactated Ringer's 1,000 mls @ 150 mls/hr 01/23/25 05:15 01/24/25 07:52 Lr - Lactated Ringers Iv IV CONT 150 mls/hr .Q6H40M ANNE Infusion Piperacillin Sod/Tazobactam 50 mls @ 100 mls/hr 01/23/25 11:30 01/24/25 06:02 Sod 3.375 gm/ Sodium Chloride IVPB 100 mls/hr Q6HR ANNE Administration Nicotine 1 patch 01/24/25 09:00 01/24/25 07:56 Nicotine (*Pbkc) 21 Mg Patch TRANSDERM 1 patch DAILY ANNE Administration Ondansetron HCl 4 mg 01/23/25 05:15 01/23/25 07:22 Ondansetron Inj 4 Mg/2 Ml Vial IV PUSH 4 mg Q4H PRN Administration Nausea Radiology Results: ITS Impressions Abdomen/Pelvis CT 01/23/25 07:24 IMPRESSION: 1. Wall thickening and stricture at the junction of the descending and sigmoid colon, consistent with diverticulitis versus malignancy with small abscesses and bowel obstruction. Labs Labs: Laboratory Results - last 24 hr 01/23/25 01/24/2525 20:20 04:50 06:27 WBC 8.7 RBC 4.08 L Hgb 12.0 L Hct 37.2 L MCV 91.2 MCH 29.4 MCHC 32.3 RDW 16.8 H Plt Count 481 H MPV 8.8 Immature Gran % (Auto) 0.8 H Neut % (Auto) 62.5 Lymph % (Auto) 20.7 [place] % (Auto) 12.9 H Eos % (Auto) 2.5 Baso % (Auto) 0.6 Lymph # (Auto) 1.81 [place] # (Auto) 1.1 H Eos # (Auto) 0.2 Baso # (Auto) 0.1 Abs Immat Gran (auto) 0.07 H Absolute Neuts (auto) 5.5 Absolute Nucleated RBC 0.000 Nucleated RBC % 0.0 Sodium 133 L Potassium 3.5 Chloride 101 Carbon Dioxide 28 Anion Gap 4 BUN 6 L Creatinine 0.54 L Estim Creat Clear Calc 225 Estimated GFR > 60 Glucose 86 POC Capillary Glucose 101 103 Calcium 7.7 L Phosphorus 4.0 Magnesium 2.0
--- NOTE | 2025-01-24 11:12 | PM.IMPN ---
Progress Note: A&P Assessment and Plan (1) Large bowel obstruction: Code(s): K56.609 - Unspecified intestinal obstruction, unspecified as to partial versus complete obstruction Status: Acute Assessment and Plan: --> epigastric/mid-abdominal pain. Passing flatus, but no BM yet. - clear liquids for now and consider advancing to fulls. No nausea or vomiting. Will continue to monitor with serial abdominal exams and labs. - Surgery noted indication for emergent surgical intervention at this time, but would require surgery if he develops more signs of a high-grade obstruction. (2) Diverticulitis of intestine with abscess: Code(s): K57.80 - Diverticulitis of intestine, part unspecified, with perforation and abscess without bleeding Status: Acute Assessment and Plan: -- as seen on CT --> psoas abscess to be decreased in size from last admission, but new abscess identified in wall of the distal descending colon where there is thickening of the wall. No perforation. -->Continue to treat with IV Zosyn. --> General surgery consulted, suggest outpatient colonoscopy in a few weeks after the inflammation improves. (3) Psoas abscess, left: Code(s): K68.12 - Psoas muscle abscess Status: Acute Assessment and Plan: --> per CT scan decreased in size in comparison to previous CT scan, now at about 2 cm. -->Continue IV Zosyn and monitor. -->previous cultures showed growth of E.coli, bacteroides species, and pseudomonas that are sensitive to Zosyn (4) Alcohol abuse: Code(s): F10.10 - Alcohol abuse, uncomplicated Status: Acute Assessment and Plan: -->stated he drinks about a 5th a day -->however in the past 2 weeks due prior hospitalizations has only drank twice --Started on Banana bag, folic acid and thiamine (5) Tobacco dependence: Code(s): F17.200 - Nicotine dependence, unspecified, uncomplicated Status: Acute Assessment and Plan: - education on smoking cessation - continue with nicotine patch Plan DVT prophylaxis - Sq Lovenox Code status - Full code disposition - will continue IV ATB management, surgery to follow. Once stable, will discharge with outpatient follow up and further workup. Time Spent With Patient Time with patient: Greater than 35 minutes Subjective Date/time seen: 01/24/25 11:12 Interval history: This is a 30-year-old male past medical history of anxiety and hypertension recently managed for Large bowel obstruction, psoas muscle abscess and discharged on 01/16/25 who presented again with Abd pain. Patient noted pain has continued since discharge and pain had been worsening since that day, he described pain as sharp, diffuse but worse on the LLQ, 10/10 in intensity, intermittent with increasing frequency. Noted few loose stools but denies any vomiting, chest pain, SOB, no blood in stool. ER evaluation notable HR 120, RR 17, BP 151/100, saturating 97% on room air. WBC 11.4, K 3.2, Na 132. CT AP showed wall thickening and stricture at the junction of the descending and sigmoid colon consistent with diverticulitis versus malignancy with small abscesses and bowl obstruction.Original CT scan decreased in size in comparison to previous CT scan, now at about 2 cm. Previous cultures showed growth of E.coli, bacteroides species, and pseudomonas that are sensitive to Zosyn. patient was admitted for further management, pain control and surgical consultation. Today patient states he is still having pain. He denies any active withdrawal symptoms. Patient states she is passing gas but has not had any BM yet. he is tolerating clear liquid diet. Vital signs stable. labs note improved WBC at 8.7, hgb 12.0, hct 37.2. Review of Systems Review of Systems: ALl other systems were reviewed and negative except as noted in aram HPI above Objective Data Vital Signs Vital Signs: Vital Signs - 24 hr 01/23/25 17:28 01/23/25 17:48 01/23/25 21:00 Temperature 97.7 F Pulse Rate 100 100 95 Respiratory Rate 16 16 Blood Pressure 122/89 Pulse Oximetry 96 96 Oxygen Delivery Room Air 01/23/25 22:00 01/24/25 00:00 01/24/25 04:00 Temperature 97.9 F Pulse Rate 97 90 82 Respiratory Rate 18 Blood Pressure 139/85 Pulse Oximetry 93 Oxygen Delivery 01/24/25 06:00 01/24/25 08:00 01/24/25 08:00 Temperature 97.7 F Pulse Rate 95 97 Respiratory Rate 20 Blood Pressure 135/71 Pulse Oximetry 95 Oxygen Delivery Room Air Intake/Output Intake/Output: Intake & Output 01/21/25 01/22/25 01/23/25 01/24/25 23:59 23:59 23:59 23:59 Intake Total 3567.5 700 Output Total 500 Balance 3567.5 200 Meds/Results Medications: Active Medications Generic Name Dose Route Start Last Admin Trade Name Freq PRN Reason Stop Dose Admin Acetaminophen 650 mg 01/23/25 05:15 Acetaminophen 325 Mg Tablet PO Q4H PRN Mild Pain (1-3) or Fever Hydrocodone Bitart/Acetaminophen 1 tab 01/23/25 05:15 01/24/25 07:56 Hydrocodone/Acetaminophen (*Crx) 5-325 Mg Tablet PO 1 tab Q4H PRN Administration Pain Rated 4-6 Diazepam 5 - 10 mg 01/23/25 18:31 Diazepam Inj (*Crx) 10 Mg/2 Ml Syringe IV PUSH Q5M PRN CIWA > 15 Enoxaparin Sodium 40 mg 01/24/25 09:00 01/24/25 07:57 Enoxaparin 40 Mg/0.4 Ml Syringe SUB-Q 40 mg DAILY ANNE Administration Hydromorphone HCl 0.5 mg 01/23/25 05:15 01/24/25 09:15 Hydromorphone Hcl Inj (*Crx) 1 Mg/Ml Syr IV PUSH 0.5 mg Q4H PRN Administration Pain Rated 7-10 Lactated Ringer's 1,000 mls @ 150 mls/hr 01/23/25 05:15 01/24/25 07:52 Lr - Lactated Ringers Iv IV CONT 150 mls/hr .Q6H40M ANNE Infusion Piperacillin Sod/Tazobactam 50 mls @ 100 mls/hr 01/23/25 11:30 01/24/25 06:02 Sod 3.375 gm/ Sodium Chloride IVPB 100 mls/hr Q6HR ANNE Administration Nicotine 1 patch 01/24/25 09:00 01/24/25 07:56 Nicotine (*Pbkc) 21 Mg Patch TRANSDERM 1 patch DAILY ANNE Administration Ondansetron HCl 4 mg 01/23/25 05:15 01/23/25 07:22 Ondansetron Inj 4 Mg/2 Ml Vial IV PUSH 4 mg Q4H PRN Administration Nausea Radiology Results: ITS Impressions Abdomen/Pelvis CT 01/23/25 07:24 IMPRESSION: 1. Wall thickening and stricture at the junction of the descending and sigmoid colon, consistent with diverticulitis versus malignancy with small abscesses and bowel obstruction. Labs Labs: Laboratory Results - last 24 hr 01/23/25 01/24/25 01/24/25 20:20 04:50 06:27 WBC 8.7 RBC 4.08 L Hgb 12.0 L Hct 37.2 L MCV 91.2 MCH 29.4 MCHC 32.3 RDW 16.8 H Plt Count 481 H MPV 8.8 Immature Gran % (Auto) 0.8 H Neut % (Auto) 62.5 Lymph % (Auto) 20.7 [place] % (Auto) 12.9 H Eos % (Auto) 2.5 Baso % (Auto) 0.6 Lymph # (Auto) 1.81 [place] # (Auto) 1.1 H Eos # (Auto) 0.2 Baso # (Auto) 0.1 Abs Immat Gran (auto) 0.07 H Absolute Neuts (auto) 5.5 Absolute Nucleated RBC 0.000 Nucleated RBC % 0.0 Sodium 133 L Potassium 3.5 Chloride 101 Carbon Dioxide 28 Anion Gap 4 BUN 6 L Creatinine 0.54 L Estim Creat Clear Calc 225 Estimated GFR > 60 Glucose 86 POC Capillary Glucose 101 103 Calcium 7.7 L Phosphorus 4.0 Magnesium 2.0 Quality VTE Prophylaxis VTE prophylaxis: pharmacologic ordered Hospitalist MIPS Advance Care Plan I have confirmed that the patient's Advanced Care Plan is present, code status is documented, or surrogate decision maker is listed in patient medical record.: Yes Medication Reconciliation I have utilized all available resources to obtain, update and review the patients current medications (includes all prescriptions, OTC, herbals, cannabis, and nutritional supplements).: Yes The patient is not eligible for med reconciliation; the patient is in a emergent medical situation where delaying treatment would jeopardize the patients health.: Yes
[2025-01-24] MEDS: LACTATED RINGERS 1,000 ML 150 ML IV CONT (20:22)
[2025-01-25] VITALS (9 sets, daily range): BP systolic 139–148; BP diastolic 86–91; PULSE 87–119; RESP 14–18; TEMP 36.4–36.8; O2SAT 94–95
[2025-01-25] MEDS: HYDROmorphone HCL INJ (*CRX) 1 MG/ML SYR 0.5 MG IV PUSH ×3 (00:19→08:58)
[2025-01-25] MEDS: LACTATED RINGERS 1,000 ML 150 ML IV CONT (04:45)
[2025-01-25] MEDS: PIPERACILLIN/TAZOBACTAM SOD 3.375 GM in SODIUM CHLORIDE 0.9% IV 50 ML 100 ML IVPB ×3 (05:11→16:58)
[2025-01-25 05:16] LABS: Hematocrit 36.5 % (42.0-52.0); Hemoglobin 11.8 g/dL (14.0-18.0); Immature Granulocyte Percent A 0.3 % (0-0.5); Lymphocytes Absolute Auto 1.64 K/mm3 (0.9-3.2); Mean Corpuscular HGB Conc 32.3 g/dl (32-36); Mean Corpuscular Hemoglobin 29.4 pg (26-34); Mean Corpuscular Volume 91.0 fl (80-100); Nucleated Red Blood Cells Absolute Auto 0.000 K/mm3 (0.0-0.012); Nucleated Red Blood Cells Perc 0.0 % (0.0-0.2); Platelet Count Result 464 k/mm3 (150-375); Red Blood Count 4.01 M/mm3 (4.6-6.20); White Blood Count 9.0 K/mm3 (4.5-10.0)
[2025-01-25 05:49] LABS: Alanine Aminotransferase 14 U/L (6-50); Albumin Level 2.5 g/dL (3.5-5.1); Alkaline Phosphatase 97 U/L (38-126); Anion Gap 3 mmol/L (4-12); Aspartate Amino Transferase 29 U/L (17-59); Bilirubin,Total 0.9 mg/dL (0.2-1.3); Blood Urea Nitrogen 4 mg/dL (9-20); Calcium 7.8 mg/dL (8.4-10.2); Carbon Dioxide 29 mmol/L (22-30); Chloride 102 mmol/L (98-107); Estimated CRCL calculation 233 ml/min; Estimated Glomerular Filt Rate > 60; Glucose 71 mg/dL (65-110); Potassium 3.6 mmol/L (3.4-5.0); Sodium 134 mmol/L (137-145); Total Protein 5.5 g/dL (6.3-8.2)
[2025-01-25] MEDS: buPROPion HCL XL (24 HR) 150 MG TABCR 300 MG PO (08:53)
[2025-01-25] MEDS: NICOTINE (*PBKC) 21 MG PATCH 1 PATCH TRANSDERM (08:54)
[2025-01-25] MEDS: ENOXAPARIN 40 MG/0.4 ML SYRINGE SUB-Q (08:55)
--- NOTE | 2025-01-25 10:02 | P.PNGS_ITS ---
Progress Note: A&P Assessment and Plan (1) Large bowel obstruction: Code(s): K56.609 - Unspecified intestinal obstruction, unspecified as to partial versus complete obstruction Status: Acute Assessment and Plan: * BM overnight. Will advance diet to full liquids. Dana switched to Percocet. Encouraged patient to wean off of IV pain medication if possible. * Will continue to monitor patient with serial abdominal exams and labs. * No indication for emergent surgical intervention at this time, as it seems that obstruction has resolved. (2) Diverticulitis of intestine with abscess: Code(s): K57.80 - Diverticulitis of intestine, part unspecified, with perforation and abscess without bleeding Status: Acute Assessment and Plan: * No known history of diverticulitis. CT revealed psoas abscess to be decreased in size from last admission, but new abscess identified in wall of the distal descending colon where there is thickening of the wall. No perforation. Continue to treat with IV antibiotics. Make sure patient's pharmacy and insurance have approved the medication, as patient had difficulty obtaining abx upon last discharge. * He will eventually need a colonoscopy in a few weeks after the inflammation improves. (3) Psoas abscess, left: Code(s): K68.12 - Psoas muscle abscess Status: Acute Assessment and Plan: * Decreased in size in comparison to previous CT scan, now at about 2 cm. Continue IV antibiotics and monitor. Cultures from previous hospitalization showed growth of E.coli, bacteroides species, and pseudomonas that are sensitive to Zosyn. (4) Alcohol abuse: Code(s): F10.10 - Alcohol abuse, uncomplicated Status: Acute Assessment and Plan: * Patient has heavy alcohol use. He did drink alcohol since his last admission, but reports less than typical. Encouraged cessation. (5) Morbid obesity with body mass index (BMI) of 40.0 to 49.9: Code(s): E66.01 - Morbid (severe) obesity due to excess calories Status: Acute Assessment and Plan: * Encouraged lifestyle modifications to promote weight loss. This increases his surgical risks. (6) Tobacco dependence: Code(s): F17.200 - Nicotine dependence, unspecified, uncomplicated Status: Acute (7) Tachycardia: Code(s): R00.0 - Tachycardia, unspecified Status: Acute Assessment and Plan: * Hx of tachycardia treated with propranolol by his PCP Plan I have discussed the patient's case and plan of care with Dr. Mayfield. Subjective Subjective Date/Time Seen: 01/25/25 10:02 Patient reports: no new complaints, feels better, voiding w/o difficulty, bowel movement and afebrile Interval history: Patient doing well today. No nausea or vomiting with clear liquids. He has been taking IV pain medication as he states that the Norcos do not touch his pain. Had a few bowel movements overnight. Exam Const: General: comfortable and no acute distress Eyes: General: appearance normal, both eyes and all related structures GI: Inspection: normal to inspection, distended, Pannus present and obesity GI Palp: Yes abdominal tenderness (minimal; epigastric), Yes Soft to palpation and No Guarding due to palpation present (GI) Auscultation: normal bowel sounds Rectal Exam: deferred Objective Data Vital Signs Vital Signs: Vital Signs - 24 hr 01/24/25 12:00 01/24/25 14:00 01/24/25 16:00 Temperature 97.8 F Pulse Rate 100 119 H 101 H Respiratory Rate 15 Blood Pressure 150/98 H Pulse Oximetry 96 Oxygen Delivery 01/24/25 20:00 01/24/25 20:00 01/24/25 21:56 Temperature 97.9 F Pulse Rate 105 H 108 H Respiratory Rate 20 Blood Pressure 143/91 H Pulse Oximetry 97 Oxygen Delivery Room Air 01/25/25 00:00 01/25/25 04:00 01/25/25 06:00 Temperature 98.2 F Pulse Rate 108 H 103 H 87 Respiratory Rate 18 Blood Pressure 139/86 Pulse Oximetry 95 Oxygen Delivery Intake/Output Intake/Output: Intake & Output 01/22/25 01/23/25 01/24/25 01/25/25 23:59 23:59 23:59 23:59 Intake Total 3567.5 1842.5 1150 Output Total 1330 Balance 3567.5 512.5 1150 Meds/Results Medications: Active Medications Generic Name Dose Route Start Last Admin Trade Name Freq PRN Reason Stop Dose Admin Acetaminophen 650 mg 01/23/25 05:15 Acetaminophen 325 Mg Tablet PO Q4H PRN Mild Pain (1-3) or Fever Bupropion HCl 300 mg 01/25/25 09:00 01/25/25 08:53 Bupropion Hcl Xl (24 Hr) 150 Mg Tabcr PO 300 mg QAM ANNE Administration Diazepam 5 - 10 mg 01/23/25 18:31 Diazepam Inj (*Crx) 10 Mg/2 Ml Syringe IV PUSH Q5M PRN CIWA > 15 Enoxaparin Sodium 40 mg 01/24/25 09:00 01/25/25 08:55 Enoxaparin 40 Mg/0.4 Ml Syringe SUB-Q 40 mg DAILY ANNE Administration Hydromorphone HCl 0.5 mg 01/23/25 05:15 01/25/25 08:58 Hydromorphone Hcl Inj (*Crx) 1 Mg/Ml Syr IV PUSH 0.5 mg Q4H PRN Administration Pain Rated 7-10 Lactated Ringer's 1,000 mls @ 150 mls/hr 01/23/25 05:15 01/25/25 04:45 Lr - Lactated Ringers Iv IV CONT 150 mls/hr .Q6H40M ANNE Administration Piperacillin Sod/Tazobactam 50 mls @ 100 mls/hr 01/23/25 11:30 01/25/25 05:41 Sod 3.375 gm/ Sodium Chloride IVPB Infused Q6HR ANNE Infusion Lorazepam 1 mg 01/24/25 14:45 Lorazepam (*Crx) 1 Mg Tablet PO DAILY PRN Anxiety Nicotine 1 patch 01/24/25 09:00 01/25/25 08:54 Nicotine (*Pbkc) 21 Mg Patch TRANSDERM 1 patch DAILY ANNE Administration Ondansetron HCl 4 mg 01/23/25 05:15 01/23/25 07:22 Ondansetron Inj 4 Mg/2 Ml Vial IV PUSH 4 mg Q4H PRN Administration Nausea Oxycodone/Acetaminophen 1 tablet 01/25/25 10:01 Oxycodone/Acetaminophen (*Crx) 5-325 Mg Tablet PO Q4H PRN Pain Rated 6-10 Quetiapine Fumarate 50 mg 01/24/25 21:00 01/24/25 20:27 Quetiapine Fumarate 25 Mg Tablet PO 50 mg QHS ANNE Administration Radiology Results: ITS Impressions Abdomen/Pelvis CT 01/23/25 07:24 IMPRESSION: 1. Wall thickening and stricture at the junction of the descending and sigmoid colon, consistent with diverticulitis versus malignancy with small abscesses and bowel obstruction. Labs Labs: Laboratory Results - last 24 hr 1001/24/25 01/25/25 11:51 17:39 00:27 WBC RBC Hgb Hct MCV MCH MCHC RDW Plt Count MPV Immature Gran % (Auto) Neut % (Auto) Lymph % (Auto) [place] % (Auto) Eos % (Auto) Baso % (Auto) Lymph # (Auto) [place] # (Auto) Eos # (Auto) Baso # (Auto) Abs Immat Gran (auto) Absolute Neuts (auto) Absolute Nucleated RBC Nucleated RBC % Sodium Potassium Chloride Carbon Dioxide Anion Gap BUN Creatinine Estim Creat Clear Calc Estimated GFR Glucose POC Capillary Glucose 99 71 73 Calcium Total Bilirubin AST ALT Alkaline Phosphatase Total Protein Albumin 01/25/25 01/25/25 04:37 06:18 WBC 9.0 RBC 4.01 L Hgb 11.8 L Hct 36.5 L MCV 91.0 MCH 29.4 MCHC 32.3 RDW 16.8 H Plt Count 464 H MPV 9.0 Immature Gran % (Auto) 0.3 Neut % (Auto) 63.9 Lymph % (Auto) 18.3 [place] % (Auto) 15.3 H Eos % (Auto) 1.8 Baso % (Auto) 0.4 Lymph # (Auto) 1.64 [place] # (Auto) 1.4 H Eos # (Auto) 0.2 Baso # (Auto) 0.0 Abs Immat Gran (auto) 0.03 Absolute Neuts (auto) 5.7 Absolute Nucleated RBC 0.000 Nucleated RBC % 0.0 Sodium 134 L Potassium 3.6 Chloride 102 Carbon Dioxide 29 Anion Gap 3 L BUN 4 L Creatinine 0.52 L Estim Creat Clear Calc 233 Estimated GFR > 60 Glucose 71 POC Capillary Glucose 114 H Calcium 7.8 L Total Bilirubin 0.9 AST 29 ALT 14 Alkaline Phosphatase 97 Total Protein 5.5 L Albumin 2.5 L
--- NOTE | 2025-01-25 10:50 | PM.IMPN ---
Progress Note: A&P Assessment and Plan (1) Large bowel obstruction: Code(s): K56.609 - Unspecified intestinal obstruction, unspecified as to partial versus complete obstruction Status: Acute Assessment and Plan: --> epigastric/mid-abdominal pain. Passing flatus, but no BM yet. - Advanced to full liquids. No nausea or vomiting. Will continue to monitor with serial abdominal exams and labs. - Surgery noted noindication for emergent surgical intervention at this time, as it seems that obstruction has resolved. (2) Diverticulitis of intestine with abscess: Code(s): K57.80 - Diverticulitis of intestine, part unspecified, with perforation and abscess without bleeding Status: Acute Assessment and Plan: -- as seen on CT --> psoas abscess to be decreased in size from last admission, but new abscess identified in wall of the distal descending colon where there is thickening of the wall. No perforation. -->Continue to treat with IV Zosyn. --> General surgery consulted, suggest outpatient colonoscopy in a few weeks after the inflammation improves. (3) Psoas abscess, left: Code(s): K68.12 - Psoas muscle abscess Status: Acute Assessment and Plan: --> per CT scan decreased in size in comparison to previous CT scan, now at about 2 cm. -->Continue IV Zosyn and monitor. -->previous cultures showed growth of E.coli, bacteroides species, and pseudomonas that are sensitive to Zosyn (4) Alcohol abuse: Code(s): F10.10 - Alcohol abuse, uncomplicated Status: Acute Assessment and Plan: -->stated he drinks about a 5th a day -->however in the past 2 weeks due prior hospitalizations has only drank twice -->Received a Banana bag. -->Receiving folic acid and thiamine. (5) Tobacco dependence: Code(s): F17.200 - Nicotine dependence, unspecified, uncomplicated Status: Acute Assessment and Plan: - education on smoking cessation - continue with nicotine patch Subjective Date/time seen: 01/25/25 10:50 Interval history: Patient reports pain in abdomen is a 4, frequent, and aching. Reports feeling like he has gas and is lying on his right side to relieve it. Patient denies chest pain, palpitations, shortness of breath, nausea, or vomiting. Review of Systems Review of Systems: All systems reviewed & are unremarkable except as noted in HPI and below Exam Const: General: no acute distress Eyes: General: appearance normal, both eyes and all related structures Resp: Effort & Inspection: normal respiratory effort Auscultation: clear to auscultation bilaterally Cardio: Rate: regular rate Rhythm: regular rhythm GI: Inspection: normal to inspection, distended and obesity GI Palp: Yes abdominal tenderness (minimal; epigastric), Yes Soft to palpation and No Guarding due to palpation present (GI) Auscultation: normal bowel sounds Neuro: Speech: normal speech Extrem: General: no pedal edema Psych: Mental Status: mental status grossly normal Affect: normal affect Objective Data Vital Signs Vital Signs: Vital Signs - 24 hr 01/24/25 12:00 01/24/25 14:00 01/24/25 16:00 Temperature 97.8 F Pulse Rate 100 119 H 101 H Respiratory Rate 15 Blood Pressure 150/98 H Pulse Oximetry 96 Oxygen Delivery 01/24/25 20:00 01/24/25 20:00 01/24/25 21:56 Temperature 97.9 F Pulse Rate 105 H 108 H Respiratory Rate 20 Blood Pressure 143/91 H Pulse Oximetry 97 Oxygen Delivery Room Air 01/25/25 00:00 01/25/25 04:00 01/25/25 06:00 Temperature 98.2 F Pulse Rate 108 H 103 H 87 Respiratory Rate 18 Blood Pressure 139/86 Pulse Oximetry 95 Oxygen Delivery Intake/Output Intake/Output: Intake & Output 01/22/25 01/23/25 01/24/25 01/25/25 23:59 23:59 23:59 23:59 Intake Total 3567.5 1842.5 1630 Output Total 1330 Balance 3567.5 512.5 1630 Meds/Results Medications: Active Medications Generic Name Dose Route Start Last Admin Trade Name Freq PRN Reason Stop Dose Admin Acetaminophen 650 mg 01/23/25 05:15 Acetaminophen 325 Mg Tablet PO Q4H PRN Mild Pain (1-3) or Fever Bupropion HCl 300 mg 01/25/25 09:00 01/25/25 08:53 Bupropion Hcl Xl (24 Hr) 150 Mg Tabcr PO 300 mg QAM ANNE Administration Diazepam 5 - 10 mg 01/23/25 18:31 Diazepam Inj (*Crx) 10 Mg/2 Ml Syringe IV PUSH Q5M PRN CIWA > 15 Enoxaparin Sodium 40 mg 01/24/25 09:00 01/25/25 08:55 Enoxaparin 40 Mg/0.4 Ml Syringe SUB-Q 40 mg DAILY ANNE Administration Hydromorphone HCl 0.5 mg 01/23/25 05:15 01/25/25 08:58 Hydromorphone Hcl Inj (*Crx) 1 Mg/Ml Syr IV PUSH 0.5 mg Q4H PRN Administration Pain Rated 7-10 Lactated Ringer's 1,000 mls @ 150 mls/hr 01/23/25 05:15 01/25/25 04:45 Lr - Lactated Ringers Iv IV CONT 150 mls/hr .Q6H40M ANNE Administration Piperacillin Sod/Tazobactam 50 mls @ 100 mls/hr 01/23/25 11:30 01/25/25 05:41 Sod 3.375 gm/ Sodium Chloride IVPB Infused Q6HR ANNE Infusion Lorazepam 1 mg 01/24/25 14:45 Lorazepam (*Crx) 1 Mg Tablet PO DAILY PRN Anxiety Nicotine 1 patch 01/24/25 09:00 01/25/25 08:54 Nicotine (*Pbkc) 21 Mg Patch TRANSDERM 1 patch DAILY ANNE Administration Ondansetron HCl 4 mg 01/23/25 05:15 01/23/25 07:22 Ondansetron Inj 4 Mg/2 Ml Vial IV PUSH 4 mg Q4H PRN Administration Nausea Oxycodone/Acetaminophen 1 tablet 01/25/25 10:01 Oxycodone/Acetaminophen (*Crx) 5-325 Mg Tablet PO Q4H PRN Pain Rated 6-10 Quetiapine Fumarate 50 mg 01/24/25 21:00 01/24/25 20:27 Quetiapine Fumarate 25 Mg Tablet PO 50 mg QHS ANNE Administration Radiology Results: ITS Impressions Abdomen/Pelvis CT 01/23/25 07:24 IMPRESSION: 1. Wall thickening and stricture at the junction of the descending and sigmoid colon, consistent with diverticulitis versus malignancy with small abscesses and bowel obstruction. Labs Labs: Laboratory Results - last 24 hr 01/24/25 01/24/25 01/25/25 11:51 17:39 00:27 WBC RBC Hgb Hct MCV MCH MCHC RDW Plt Count MPV Immature Gran % (Auto) Neut % (Auto) Lymph % (Auto) [place] % (Auto) Eos % (Auto) Baso % (Auto) Lymph # (Auto) [place] # (Auto) Eos # (Auto) Baso # (Auto) Abs Immat Gran (auto) Absolute Neuts (auto) Absolute Nucleated RBC Nucleated RBC % Sodium Potassium Chloride Carbon Dioxide Anion Gap BUN Creatinine Estim Creat Clear Calc Estimated GFR Glucose POC Capillary Glucose 99 71 73 Calcium Total Bilirubin AST ALT Alkaline Phosphatase Total Protein Albumin 01/25/25 01/25/25 04:37 06:18 WBC 9.0 RBC 4.01 L Hgb 11.8 L Hct 36.5 L MCV 91.0 MCH 29.4 MCHC 32.3 RDW 16.8 H Plt Count 464 H MPV 9.0 Immature Gran % (Auto) 0.3 Neut % (Auto) 63.9 Lymph % (Auto) 18.3 [place] % (Auto) 15.3 H Eos % (Auto) 1.8 Baso % (Auto) 0.4 Lymph # (Auto) 1.64 [place] # (Auto) 1.4 H Eos # (Auto) 0.2 Baso # (Auto) 0.0 Abs Immat Gran (auto) 0.03 Absolute Neuts (auto) 5.7 Absolute Nucleated RBC 0.000 Nucleated RBC % 0.0 Sodium 134 L Potassium 3.6 Chloride 102 Carbon Dioxide 29 Anion Gap 3 L BUN 4 L Creatinine 0.52 L Estim Creat Clear Calc 233 Estimated GFR > 60 Glucose 71 POC Capillary Glucose 114 H Calcium 7.8 L Total Bilirubin 0.9 AST 29 ALT 14 Alkaline Phosphatase 97 Total Protein 5.5 L Albumin 2.5 L Quality VTE Prophylaxis VTE prophylaxis: pharmacologic ordered
[2025-01-25] MEDS: oxyCODONE/ACETAMINOPHEN (*CRX) 5-325 MG TABLET 1 TABLET PO ×3 (11:04→21:11)
[2025-01-25] MEDS: LACTATED RINGERS 1,000 ML 100 ML IV CONT ×2 (11:05→21:10)
[2025-01-26] VITALS (7 sets, daily range): BP systolic 137–145; BP diastolic 88–96; PULSE 90–106; RESP 16; TEMP 36.7–37.1; O2SAT 93–97
[2025-01-26] MEDS: PIPERACILLIN/TAZOBACTAM SOD 3.375 GM in SODIUM CHLORIDE 0.9% IV 50 ML 100 ML IVPB ×3 (00:25→12:15)
[2025-01-26] MEDS: oxyCODONE/ACETAMINOPHEN (*CRX) 5-325 MG TABLET 1 TABLET PO ×3 (00:57→12:16)
[2025-01-26 04:44] LABS: Hematocrit 36.9 % (42.0-52.0); Hemoglobin 11.8 g/dL (14.0-18.0); Immature Granulocyte Percent A 0.5 % (0-0.5); Lymphocytes Absolute Auto 2.08 K/mm3 (0.9-3.2); Mean Corpuscular HGB Conc 32.0 g/dl (32-36); Mean Corpuscular Hemoglobin 29.4 pg (26-34); Mean Corpuscular Volume 91.8 fl (80-100); Nucleated Red Blood Cells Absolute Auto 0.000 K/mm3 (0.0-0.012); Nucleated Red Blood Cells Perc 0.0 % (0.0-0.2); Platelet Count Result 429 k/mm3 (150-375); Red Blood Count 4.02 M/mm3 (4.6-6.20); White Blood Count 8.3 K/mm3 (4.5-10.0)
[2025-01-26 05:03] LABS: Alanine Aminotransferase 12 U/L (6-50); Albumin Level 2.4 g/dL (3.5-5.1); Alkaline Phosphatase 96 U/L (38-126); Anion Gap 4 mmol/L (4-12); Aspartate Amino Transferase 21 U/L (17-59); Bilirubin,Total 1.0 mg/dL (0.2-1.3); Blood Urea Nitrogen 3 mg/dL (9-20); Calcium 7.6 mg/dL (8.4-10.2); Carbon Dioxide 29 mmol/L (22-30); Chloride 103 mmol/L (98-107); Estimated CRCL calculation 211 ml/min; Estimated Glomerular Filt Rate > 60; Glucose 82 mg/dL (65-110); Magnesium 1.8 mg/dL (1.6-2.3); Potassium 3.3 mmol/L (3.4-5.0); Sodium 136 mmol/L (137-145); Total Protein 5.3 g/dL (6.3-8.2)
--- NOTE | 2025-01-26 08:02 | P.PNIM_ITS ---
Progress Note: A&P Assessment and Plan (1) Large bowel obstruction: Code(s): K56.609 - Unspecified intestinal obstruction, unspecified as to partial versus complete obstruction Status: Acute Assessment and Plan: --> epigastric/mid-abdominal pain. Passing flatus, but no BM yet. - Advanced to full liquids. No nausea or vomiting. Will continue to monitor with serial abdominal exams and labs. - Surgery noted no indication for emergent surgical intervention at this time, as it seems that obstruction has resolved. KUB pending Low-fiber diet (2) Diverticulitis of intestine with abscess: Code(s): K57.80 - Diverticulitis of intestine, part unspecified, with perforation and abscess without bleeding Status: Acute Assessment and Plan: CT showing new abscess identified in wall of the distal descending colon where there is thickening of the wall. No perforation. Surgery consulted Continue to treat with IV Zosyn. outpatient colonoscopy in a few weeks after the inflammation improves (3) Psoas abscess, left: Code(s): K68.12 - Psoas muscle abscess Status: Acute Assessment and Plan: per CT scan decreased in size in comparison to previous CT scan, now at about 2 cm. Continue IV Zosyn and monitor. previous cultures showed growth of E.coli, bacteroides species, and pseudomonas that are sensitive to Zosyn (4) Alcohol abuse: Code(s): F10.10 - Alcohol abuse, uncomplicated Status: Acute Assessment and Plan: stated he drinks about a 5th a day, however in the past 2 weeks due prior hospitalizations has only drank twice [facility] protocol monitor for withdrawals (5) Tobacco dependence: Code(s): F17.200 - Nicotine dependence, unspecified, uncomplicated Status: Acute Assessment and Plan: education on smoking cessation continue with nicotine patch (6) Hypokalemia: Code(s): E87.6 - Hypokalemia Status: Acute Assessment and Plan: Repleted with p.o. Daily labs (7) Hypocalcemia: Code(s): E83.51 - Hypocalcemia Status: Acute Assessment and Plan: Repleted p.o. Daily labs (8) Anxiety with depression: Code(s): F41.8 - Other specified anxiety disorders Status: Acute Assessment and Plan: Continue Ativan Seroquel, Wellbutrin Subjective Date/time seen: 01/26/25 08:02 Interval history: 30-year-old male here for large bowel obstruction and diverticulitis with abscess without perforation on IV Zosyn Lab work shows stable potassium at 3.3, calcium 7.6 Review of Systems Review of Systems: 12 systems were reviewed and are negativ e except for as per HPI. Exam Narrative: General: well appearing, appears stated age. HEENT: normocephalic, atraumatic. Mucous membranes moist. EOMI, PERRLA, bilateral sclera anicteric, no conjunctival injection. Neck supple without JVD, lymphadenopathy, or bruit. Respiratory: clear to ascultation bilaterally. No rales/rhonic/wheezes. Cardiovascular: Regular rate and rhythm, normal S1-S2 upon ascultation. No murmurs, rubs, or clicks. PMI is nondisplaced, capillary refill less than 3 second. Abdomen: Soft, round, no pulsatile masses, nondistended and nontender. No rebound, no guarding. No CVA tenderness, no hepatosplenomegaly. Bowel sounds present to all four quadrants. No high pitch or tinkling sounds, resonant to percussion. Extremities: No cyanosis, clubbing, or edema present. Pulses are palpable 2/2. Active ROM to all four extremities. Neuro: Alert and orientated x 4. PERRLA. Cranial nerves 2-12 intact without focal deficit. Skin: Warm, dry, and intact, without rash, erythema, or lesion. Psych: pleasant, cooperative, normal speech, normal affect, no hallucinations, no dysarthia Objective Data Vital Signs Vital Signs: Vital Signs - 24 hr 01/25/25 08:55 01/25/25 12:00 01/25/25 14:00 Temperature 98.1 F Pulse Rate 119 H 107 H Respiratory Rate 17 Blood Pressure 143/87 H Pulse Oximetry 94 Oxygen Delivery Room Air 01/25/25 16:00 01/25/25 20:00 01/25/25 20:00 Temperature Pulse Rate 103 H 107 H Respiratory Rate Blood Pressure Pulse Oximetry Oxygen Delivery Room Air 01/25/25 21:15 01/26/25 00:00 01/26/25 04:00 Temperature 97.5 F L Pulse Rate 100 106 H 99 Respiratory Rate 14 Blood Pressure 148/91 H Pulse Oximetry 95 Oxygen Delivery 01/26/25 05:12 Temperature 98.8 F Pulse Rate 90 Respiratory Rate 16 Blood Pressure 145/88 H Pulse Oximetry 95 Oxygen Delivery Intake/Output Intake/Output: Intake & Output 01/23/25 01/24/25 01/25/25 01/26/25 23:59 23:59 23:59 23:59 Intake Total 3567.5 1842.5 5140 650 Output Total 1330 1750 Balance 3567.5 512.5 3390 650 Meds/Results Medications: Active Medications Generic Name Dose Route Start Last Admin Trade Name Freq PRN Reason Stop Dose Admin Acetaminophen 650 mg 01/23/25 05:15 Acetaminophen 325 Mg Tablet PO Q4H PRN Mild Pain (1-3) or Fever Bupropion HCl 300 mg 01/25/25 09:00 01/25/25 08:53 Bupropion Hcl Xl (24 Hr) 150 Mg Tabcr PO 300 mg QAM ANNE Administration Diazepam 5 - 10 mg 01/23/25 18:31 Diazepam Inj (*Crx) 10 Mg/2 Ml Syringe IV PUSH Q5M PRN CIWA > 15 Enoxaparin Sodium 40 mg 01/24/25 09:00 01/25/25 08:55 Enoxaparin 40 Mg/0.4 Ml Syringe SUB-Q 40 mg DAILY ANNE Administration Hydromorphone HCl 0.5 mg 01/23/25 05:15 01/25/25 08:58 Hydromorphone Hcl Inj (*Crx) 1 Mg/Ml Syr IV PUSH 0.5 mg Q4H PRN Administration Pain Rated 7-10 Lactated Ringer's 1,000 mls @ 100 mls/hr 01/23/25 05:15 01/25/25 21:10 Lr - Lactated Ringers Iv IV CONT 100 mls/hr .Q10H ANNE Administration Piperacillin Sod/Tazobactam 50 mls @ 100 mls/hr 01/23/25 11:30 01/26/25 05:29 Sod 3.375 gm/ Sodium Chloride IVPB Infused Q6HR ANNE Infusion Lorazepam 1 mg 01/24/25 14:45 Lorazepam (*Crx) 1 Mg Tablet PO DAILY PRN Anxiety Nicotine 1 patch 01/24/25 09:00 01/25/25 08:54 Nicotine (*Pbkc) 21 Mg Patch TRANSDERM 1 patch DAILY ANNE Administration Ondansetron HCl 4 mg 01/23/25 05:15 01/23/25 07:22 Ondansetron Inj 4 Mg/2 Ml Vial IV PUSH 4 mg Q4H PRN Administration Nausea Oxycodone/Acetaminophen 1 tablet 01/25/25 10:01 01/26/25 04:59 Oxycodone/Acetaminophen (*Crx) 5-325 Mg Tablet PO 1 tablet Q4H PRN Administration Pain Rated 6-10 Quetiapine Fumarate 50 mg 01/24/25 21:00 01/25/25 21:11 Quetiapine Fumarate 25 Mg Tablet PO 50 mg QHS ANNE Administration Radiology Results: ITS Impressions Abdomen/Pelvis CT 01/23/25 07:24 IMPRESSION: 1. Wall thickening and stricture at the junction of the descending and sigmoid colon, consistent with diverticulitis versus malignancy with small abscesses and bowel obstruction. Labs Labs: Laboratory Results - last 24 hr 01/25/25 01/26/25 11:38 04:32 WBC 8.3 RBC 4.02 L Hgb 11.8 L Hct 36.9 L MCV 91.8 MCH 29.4 MCHC 32.0 RDW 16.9 H Plt Count 429 H MPV 8.3 Immature Gran % (Auto) 0.5 Neut % (Auto) 55.1 Lymph % (Auto) 25.1 [place] % (Auto) 17.0 H Eos % (Auto) 1.8 Baso % (Auto) 0.5 Lymph # (Auto) 2.08 [place] # (Auto) 1.4 H Eos # (Auto) 0.2 Baso # (Auto) 0.0 Abs Immat Gran (auto) 0.04 H Absolute Neuts (auto) 4.6 Absolute Nucleated RBC 0.000 Nucleated RBC % 0.0 Sodium 136 L Potassium 3.3 L Chloride 103 Carbon Dioxide 29 Anion Gap 4 BUN 3 L Creatinine 0.58 L Estim Creat Clear Calc 211 Estimated GFR > 60 Glucose 82 POC Capillary Glucose 71 Calcium 7.6 L Magnesium 1.8 Total Bilirubin 1.0 AST 21 ALT 12 Alkaline Phosphatase 96 Total Protein 5.3 L Albumin 2.4 L Quality VTE Prophylaxis VTE prophylaxis: pharmacologic ordered
--- NOTE | 2025-01-26 08:36 | P.PNGS_ITS ---
Progress Note: A&P Assessment and Plan (1) Large bowel obstruction: Code(s): K56.609 - Unspecified intestinal obstruction, unspecified as to partial versus complete obstruction Status: Acute Assessment and Plan: * Bowels are moving and pain and bloating has improved. * Continue antibiotics * Advance to low fiber diet. If tolerating a low fiber diet, then patient is surgically stable for discharge today on oral antibiotics. He will continue the cipro and metronidazole that he has at home prescribed from his last hospitalization. * Follow-up with Dr. Mayfield in 2 weeks. We will then give a referral for a colono scopy at that time. (2) Diverticulitis of intestine with abscess: Code(s): K57.80 - Diverticulitis of intestine, part unspecified, with perforation and abscess without bleeding Status: Acute Assessment and Plan: * Suspect inflammatory/diverticular stricture vs malignancy causing the obstruction. He will eventually need a colonoscopy in 4-6 weeks after the inflammation improves. Continue a course of oral antibiotics on discharge. (3) Psoas abscess, left: Code(s): K68.12 - Psoas muscle abscess Status: Acute Assessment and Plan: * Improving. Will send him on cipro and metronidazole based of previous cultures from perc drainage during his last hospitalization. (4) Alcohol abuse: Code(s): F10.10 - Alcohol abuse, uncomplicated Status: Acute Assessment and Plan: * Encouraged cessation. (5) Morbid obesity with body mass index (BMI) of 40.0 to 49.9: Code(s): E66.01 - Morbid (severe) obesity due to excess calories Status: Acute Assessment and Plan: * Encouraged lifestyle modifications to promote weight loss. This increases his surgical risks. (6) Tobacco dependence: Code(s): F17.200 - Nicotine dependence, unspecified, uncomplicated Status: Acute Assessment and Plan: * Encouraged cessation (7) Tachycardia: Code(s): R00.0 - Tachycardia, unspecified Status: Acute Plan I have discussed the patient's case and plan of care with Dr. Mayfield. Subjective Subjective Date/Time Seen: 01/26/25 08:36 Patient reports: no new complaints, feels better, tolerating a regular diet, flatus, bowel movement and afebrile Interval history: Patient reports bloating and abdominal pain has improved some since admission overall. Still has discomfort, but this is mostly only when he lies on his left side. He reports improvement in being able to pass flatus and allow things to move through when he lies on his right side. He denies any nausea or vomiting. He is not having any fevers. He had full liquids for breakfast and will order low fiber for lunch. Exam Const: General: comfortable and no acute distress Orientation/consc iousness: patient oriented x3 GI: Inspection: distended GI Palp: Yes Soft to palpation, Yes Tenderness to palpation present (GI) (mild diffuse tenderness, no focal tenderness ), No Guarding due to palpation present (GI) and No Rebound tenderness present Percussion: Yes normal to percussion Auscultation: normal bowel sounds Objective Data Vital Signs Vital Signs: Vital Signs - 24 hr 01/25/25 08:55 01/25/25 12:00 01/25/25 14:00 Temperature 98.1 F Pulse Rate 119 H 107 H Respiratory Rate 17 Blood Pressure 143/87 H Pulse Oximetry 94 Oxygen Delivery Room Air 01/25/25 16:00 01/25/25 20:00 01/25/25 20:00 Temperature Pulse Rate 103 H 107 H Respiratory Rate Blood Pressure Pulse Oximetry Oxygen Delivery Room Air 01/25/25 21:15 01/26/25 00:00 01/26/25 04:00 Temperature 97.5 F L Pulse Rate 100 106 H 99 Respiratory Rate 14 Blood Pressure 148/91 H Pulse Oximetry 95 Oxygen Delivery 01/26/25 05:12 Temperature 98.8 F Pulse Rate 90 Respiratory Rate 16 Blood Pressure 145/88 H Pulse Oximetry 95 Oxygen Delivery Intake/Output Intake/Output: Intake & Output 01/23/25 01/24/25 01/25/25 01/26/25 23:59 23:59 23:59 23:59 Intake Total 3567.5 1842.5 5140 650 Output Total 1330 1750 Balance 3567.5 512.5 3390 650 Meds/Results Medications: Active Medications Generic Name Dose Route Start Last Admin Trade Name Freq PRN Reason Stop Dose Admin Acetaminophen 650 mg 01/23/25 05:15 Acetaminophen 325 Mg Tablet PO Q4H PRN Mild Pain (1-3) or Fever Bupropion HCl 300 mg 01/25/25 09:00 01/25/25 08:53 Bupropion Hcl Xl (24 Hr) 150 Mg Tabcr PO 300 mg QAM [facility] Administration Calcium Carbonate 500 mg 01/26/25 08:15 Calcium/Vitamin D 500 Mg/5 Mcg (200 I.U.) Tablet PO DAILY@0800 [facility] Diazepam 5 - 10 mg 01/23/25 18:31 Diazepam Inj (*Crx) 10 Mg/2 Ml Syringe IV PUSH Q5M PRN CIWA > 15 Enoxaparin Sodium 40 mg 01/24/25 09:00 01/25/25 08:55 Enoxaparin 40 Mg/0.4 Ml Syringe SUB-Q 40 mg DAILY [facility] Administration Folic Acid 1 mg 01/26/25 09:00 Folic Acid 1 Mg Tablet PO DAILY [facility] Hydromorphone HCl 0.5 mg 01/23/25 05:15 01/25/25 08:58 Hydromorphone Hcl Inj (*Crx) 1 Mg/Ml Syr IV PUSH 0.5 mg Q4H PRN Administration Pain Rated 7-10 Lactated Ringer's 1,000 mls @ 100 mls/hr 01/23/25 05:15 01/25/25 21:10 Lr - Lactated Ringers Iv IV CONT 100 mls/hr .Q10H [facility] Administration Piperacillin Sod/Tazobactam 50 mls @ 100 mls/hr 01/23/25 11:30 01/26/25 05:29 Sod 3.375 gm/ Sodium Chloride IVPB Infused Q6HR [facility] Infusion Lorazepam 1 mg 01/24/25 14:45 Lorazepam (*Crx) 1 Mg Tablet PO DAILY PRN Anxiety Multivitamins/Calcium 1 tablet 01/26/25 09:00 Therapeutic Multivitamins/Minerals Tab (*Bkc) PO DAILY [facility] Nicotine 1 patch 01/24/25 09:00 01/25/25 08:54 Nicotine (*Pbkc) 21 Mg Patch TRANSDERM 1 patch DAILY [facility] Administration Ondansetron HCl 4 mg 01/23/25 05:15 01/23/25 07:22 Ondansetron Inj 4 Mg/2 Ml Vial IV PUSH 4 mg Q4H PRN Administration Nausea Oxycodone/Acetaminophen 1 tablet 01/25/25 10:01 01/26/25 04:59 Oxycodone/Acetaminophen (*Crx) 5-325 Mg Tablet PO 1 tablet Q4H PRN Administration Pain Rated 6-10 Quetiapine Fumarate 50 mg 01/24/25 21:00 01/25/25 21:11 Quetiapine Fumarate 25 Mg Tablet PO 50 mg QHS [facility] Administration Senna/Docusate Sodium 1 tab 01/26/25 21:00 Senna/Docusate Sodium Tablet PO HS [facility] Thiamine HCl 100 mg 01/26/25 09:00 Thiamine Hcl 100 Mg Tablet PO DAILY [facility] Radiology Results: ITS Impressions Abdomen/Pelvis CT 01/23/25 07:24 IMPRESSION: 1. Wall thickening and stricture at the junction of the descending and sigmoid colon, consistent with diverticulitis versus malignancy with small abscesses and bowel obstruction. Labs Labs: Laboratory Results - last 24 hr 01/25/25 01/26/25 11:38 04:32 WBC 8.3 RBC 4.02 L Hgb 11.8 L Hct 36.9 L MCV 91.8 MCH 29.4 MCHC 32.0 RDW 16.9 H Plt Count 429 H MPV 8.3 Immature Gran % (Auto) 0.5 Neut % (Auto) 55.1 Lymph % (Auto) 25.1 [place] % (Auto) 17.0 H Eos % (Auto) 1.8 Baso % (Auto) 0.5 Lymph # (Auto) 2.08 [place] # (Auto) 1.4 H Eos # (Auto) 0.2 Baso # (Auto) 0.0 Abs Immat Gran (auto) 0.04 H Absolute Neuts (auto) 4.6 Absolute Nucleated RBC 0.000 Nucleated RBC % 0.0 Sodium 136 L Potassium 3.3 L Chloride 103 Carbon Dioxide 29 Anion Gap 4 BUN 3 L Creatinine 0.58 L Estim Creat Clear Calc 211 Estimated GFR > 60 Glucose 82 POC Capillary Glucose 71 Calcium 7.6 L Magnesium 1.8 Total Bilirubin 1.0 AST 21 ALT 12 Alkaline Phosphatase 96 Total Protein 5.3 L Albumin 2.4 L
[2025-01-26] MEDS: FOLIC ACID 1 MG TABLET PO (09:03)
[2025-01-26] MEDS: THIAMINE HCL 100 MG TABLET PO (09:04)
[2025-01-26] MEDS: THERAPEUTIC MULTIVITAMINS/MINERALS TAB (*BKC) 1 TABLET PO (09:04)
[2025-01-26] MEDS: buPROPion HCL XL (24 HR) 150 MG TABCR 300 MG PO (09:04)
[2025-01-26] MEDS: CALCIUM/VITAMIN D 500 MG/5 MCG (200 I.U.) TABLET PO (09:04)
[2025-01-26] MEDS: ENOXAPARIN 40 MG/0.4 ML SYRINGE SUB-Q (09:05)
[2025-01-26] MEDS: NICOTINE (*PBKC) 21 MG PATCH 1 PATCH TRANSDERM (09:05)
[2025-01-26] MEDS: POTASSIUM CHLORIDE 20 MEQ ER TABLET 40 MEQ PO (09:05)
[2025-01-26] MEDS: LACTATED RINGERS 1,000 ML 100 ML IV CONT (09:09)
--- NOTE | 2025-01-26 15:06 | P.DS_ITS ---
DS: Admitting Diagnosis Discharge Date 01/26/2025 Admitting Diagnosis Diverticulitis with abscess in the wall no perforation. DS: Discharge Diagnosis Discharge Diagnosis (1) Large bowel obstruction: Code(s): K56.609 - Unspecified intestinal obstruction, unspecified as to partial versus complete obstruction Status: Acute Assessment and Plan: epigastric/mid-abdominal pain. Passing flatus, but no BM yet. Advanced to full liquids. No nausea or vomiting. Will continue to monitor with serial abdominal exams and labs. Surgery noted no indication for emergent surgical intervention at this time, as it seems that obstruction has resolved. Low-fiber diet Daily senna or stool softener (2) Diverticulitis of intestine with abscess: Code(s): K57.80 - Diverticulitis of intestine, part unspecified, with perforation and abscess without bleeding Status: Acute Assessment and Plan: CT showing new abscess identified in wall of the distal descending colon where there is thickening of the wall. No perforation. Surgery consulted Continue to treat with IV Zosyn. outpatient colonoscopy in a few weeks after the inflammation improves continue the cipro and metronidazole Follow-up outpatient 2 week (3) Psoas abscess, left: Code(s): K68.12 - Psoas muscle abscess Status: Acute Assessment and Plan: per CT scan decreased in size in comparison to previous CT scan, now at about 2 cm. Continue IV Zosyn and monitor. previous cultures showed growth of E.coli, bacteroides species, and pseudomonas that are sensitive to Zosyn (4) Alcohol abuse: Code(s): F10.10 - Alcohol abuse, uncomplicated Status: Acute Assessment and Plan: stated he drinks about a 5th a day, however in the past 2 weeks due prior hospitalizations has only drank twice [facility] protocol monitor for withdrawals (5) Tobacco dependence: Code(s): F17.200 - Nicotine dependence, unspecified, uncomplicated Status: Acute Assessment and Plan: education on smoking cessation continue with nicotine patch (6) Hypokalemia: Code(s): E87.6 - Hypokalemia Status: Acute Assessment and Plan: Repleted with p.o. Daily labs (7) Hypocalcemia: Code(s): E83.51 - Hypocalcemia Status: Acute Assessment and Plan: Repleted p.o. Daily labs (8) Anxiety with depression: Code(s): F41.8 - Other specified anxiety disorders Status: Acute Assessment and Plan: Continue Ativan Seroquel, Wellbutrin DS: Summary Hospital Course Reason for hospitalization: Diverticulitis with abscess no perforation Hospital Course: 30-year-old male past medical history of anxiety and hypertension recently managed for Large bowel obstruction, psoas muscle abscess and discharged on 01/16/25 who presented again with Abd pain. Noted pain has continued since discharge and pain has been worsening since then. described pain as sharp, diffuse but worse on the LLQ, 10/10 in intensity, intermittent with increasing frequency. Patient's repeat CT showed CT showing new abscess identified in wall of the distal descending colon where there is thickening of the wall with no perforation. Patient was started on IV Zosyn. Surgery was consulted. On the 2nd day of hospitalization patient was transitioned over to clear liquid diet and did well. On day 3 surgery recommended discharging home with previous antibiotics, follow-up outpatient 2 weeks, and outpatient colonoscopy in a few weeks after the inflammation improves. Patient was able to tolerate solid foods well. While in hospital patient did not show any signs of withdrawals. His hypokalemia hypokalemia was treated and resolved. And home anxiety and depression the patient's were continued. He is feeling well overall. Apparently in between hospitalizations patient did not get his prescription of oral medications, he has been instructed to take the medications as recommended. Status at Discharge Functional status at discharge: independent ambulation Time Spent with Patient Time attestation: Total time spent providing and/or coordinating discharge services: Time spent: Greater than 30 minutes Exam Narrative: General: well appearing, appears stated age. HEENT: normocephalic, atraumatic. Mucous membranes moist. EOMI, PERRLA, bilateral sclera anicteric, no conjunctival injection. Neck supple without JVD, lymphadenopathy, or bruit. Respiratory: clear to ascultation bilaterally. No rales/rhonic/wheezes. Cardiovascular: Regular rate and rhythm, normal S1-S2 upon ascultation. No murmurs, rubs, or clicks. PMI is nondisplaced, capillary refill less than 3 second. Abdomen: Soft, round, no pulsatile masses, nondistended and nontender. No rebound, no guarding. No CVA tenderness, no hepatosplenomegaly. Bowel sounds present to all four quadrants. No high pitch or tinkling sounds, resonant to percussion. Extremities: No cyanosis, clubbing, or edema present. Pulses are palpable 2/2. Active ROM to all four extremities. Neuro: Alert and orientated x 4. PERRLA. Cranial nerves 2-12 intact without focal deficit. Skin: Warm, dry, and intact, without rash, erythema, or lesion. Psych: pleasant, cooperative, normal speech, normal affect, no hallucinations, no dysarthia DS: Data Data Completed and Pending Labs on day of discharge: Labs from last 24 hours 01/26/25 04:32 WBC 8.3 RBC 4.02 L Hgb 11.8 L Hct 36.9 L MCV 91.8 MCH 29.4 MCHC 32.0 RDW 16.9 H Plt Count 429 H MPV 8.3 Immature Gran % (Auto) 0.5 Neut % (Auto) 55.1 Lymph % (Auto) 25.1 [place] % (Auto) 17.0 H Eos % (Auto) 1.8 Baso % (Auto) 0.5 Lymph # (Auto) 2.08 [place] # (Auto) 1.4 H Eos # (Auto) 0.2 Baso # (Auto) 0.0 Abs Immat Gran (auto) 0.04 H Absolute Neuts (auto) 4.6 Absolute Nucleated RBC 0.000 Nucleated RBC % 0.0 Sodium 136 L Potassium 3.3 L Chloride 103 Carbon Dioxide 29 Anion Gap 4 BUN 3 L Creatinine 0.58 L Estim Creat Clear Calc 211 Estimated GFR > 60 Glucose 82 Calcium 7.6 L Magnesium 1.8 Total Bilirubin 1.0 AST 21 ALT 12 Alkaline Phosphatase 96 Total Protein 5.3 L Albumin 2.4 L Preliminary micro results at discharge 01/23/25 05:31 Blood Culture - Preliminary Blood 01/23/25 05:29 Blood Culture - Preliminary Blood Discharge Plan Discharge Consulting providers: Harmony Mayfield; Nola Domingo; Jennifer Art; Alia Little; Stephani Manuel; Lien Olson; Srinivasan De Los Santos V. Discharging Clinician: Sole Fuentes Anticipated Discharge Date/Time: 01/26/25 15:09 Patient Disposition: Home Activity: may shower and as tolerated Diet: high fiber Discharge Instructions: * Continue a low fiber diet for 2 weeks or until your surgeon advances your diet. * Start taking your antibiotics after discharge. You will take your first dose of both antibiotics TONIGHT and then take then as prescribed starting tomorrow. You should only take the ciprofloxacin and metronidazole. STOP TAKING THE Amoxicillin/clav (Augmentin). * Follow-up with Dr. Mayfield as scheduled on February 07 at 1:00 pm in our office. Call sooner if having increased abdominal pain, fevers, or vomiting. * Labs were sent to [facility] in [place]. Please get your labs drawn on 01/30/25. * We would strongly recommend to STOP smoking and minimize your alcohol intake. You should not drink any alcohol while taking these antibiotics, which we discussed. Patient Instructions: Antibiotic Form, Low Fiber Diet (DC) Patient Language: Korean Stand Alone Forms: General Discharge Information, Work/School Release IP Follow-up/Referrals: Harmony Mayfield MD [Physician, General Surgery] - Keep Reg. Scheduled Appt. Discharge Medications: New oxycodone-acetaminophen 5-325 mg Tablet 1 tablet PO Q6H PRN (Reason: Pain Rated 6-10) Qty: 5 0RF ibuprofen 600 mg tablet 600 mg PO TID Qty: 30 0RF Continued omeprazole 40 mg capsule,delayed release(DR/EC) 40 mg PO DAILY Qty: 90 0RF bupropion HCl 300 mg tablet extended release 24 hr 300 mg PO QAM Qty: 30 0RF quetiapine 50 mg tablet 50 mg PO QHS Qty: 30 0RF propranolol 60 mg capsule,extended release 24 hr 60 mg PO DAILY Qty: 30 0RF metronidazole 500 mg tablet 500 mg PO Q8H 10 Days Qty: 30 0RF lorazepam 1 mg tablet 1 mg PO DAILY PRN (Reason: anxiety) Qty: 30 0RF ciprofloxacin HCl 750 mg tablet 750 mg PO Q12H 10 Days Qty: 20 0RF Other Ambulatory Orders: Basic Metabolic Panel (Routine) Timeframe: 20250130 Location: Determined by Patient Ordered By: Nola Domingo Date of admission: 01/23/25 05:16 Primary Care Provider: Katherine Anders Admitting Provider: Flaca Reynolds Attending physician on admission: Sole Fuentes Condition: Stable Quality VTE Prophylaxis VTE prophylaxis: mechanical ordered and pharmacologic ordered Hospitalist MIPS Heart Failure (Exclusion) Patient has history of Heart Transplant or Left Ventricular Assistive Device?: No IF YES, STOP HERE Heart Failure (Qualifier) Patient has current or prior documentation of LVEF less than or equal to 40%, or mod/servere depressed LVSF?: No IF NO, STOP HERE
== END 2025-01-26 16:20 | disposition home or self-care (01) | DRG 391 ==
LOC: ANHED 01-23 08:51 → ANH2MED 01-23 16:29
PROVIDERS: Nurse Practitioner Family; Physician Assistant; Admitting Provider General Practice; Emergency Provider Student in an Organized Health Care Education/Training Program; PCP Nurse Practitioner Family; Visit Provider Nurse Practitioner Gerontology
DX: K57.20 Diverticulitis of large intestine with perforation and abscess without bleeding (principal); K68.12 Psoas muscle abscess; K56.690 Other partial intestinal obstruction; Z68.42 Body mass index [BMI] 45.0-49.9, adult; E66.01 Morbid (severe) obesity due to excess calories; I10 Essential (primary) hypertension; F10.10 Alcohol abuse, uncomplicated; R00.0 Tachycardia, unspecified; E87.6 Hypokalemia; E83.51 Hypocalcemia; F41.9 Anxiety disorder, unspecified; F17.210 Nicotine dependence, cigarettes, uncomplicated; F32.A Depression, unspecified; Z87.19 Personal history of other diseases of the digestive system; Z79.2 Long term (current) use of antibiotics; Z91.148 Patient's other noncompliance with medication regimen for other reason
CPT/HCPCS: 36415; 74177; 80048; 80053; 81001; 82948; 83605; 83690; 83735; 84100; 85025; 87040; 96361; 96374; 96375; 99285; A9270; J1171; J1650; J2270; J2405; J2543; J3411; J3475; J3480; J7030; J7040; J7120; Q9967